=== PATIENT | female | born 1985 | race Caucasian/White ===

== ENCOUNTER → 2020-01-30 16:11 | Outpatient (CLI) | payer OTHER, SELFPAY ==
[2020-01-31 16:36] LABS: Strep Grp B PCR NEG for Grp B Strep
== END ==
PROVIDERS: PCP Specialist; Visit Provider Specialist
DX: Z34.83 Encounter for supervision of other normal pregnancy, third trimester (principal); Z3A.36 36 weeks gestation of pregnancy
CPT/HCPCS: 87653

== ENCOUNTER 2020-01-30 16:52 | Outpatient (CLI) | payer OTHER, SELFPAY ==
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
== END 2020-01-30 17:30 | disposition home or self-care (01) ==
LOC: OB 02-03 11:46
PROVIDERS: PCP Specialist; Referring Provider Specialist; Visit Provider Specialist
DX: O24.410 Gestational diabetes mellitus in pregnancy, diet controlled (principal); Z3A.36 36 weeks gestation of pregnancy
CPT/HCPCS: 59025; 87653; G0378; G0379

== ENCOUNTER 2020-02-04 10:21 | Outpatient (CLI) | payer OTHER, SELFPAY ==
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
== END 2020-02-04 11:24 | disposition home or self-care (01) ==
LOC: LABOR 11:10 → OB 02-05 07:05
PROVIDERS: PCP Specialist; Referring Provider Specialist; Visit Provider Specialist
DX: O24.419 Gestational diabetes mellitus in pregnancy, unspecified control (principal); Z3A.37 37 weeks gestation of pregnancy
CPT/HCPCS: 59025; G0378; G0379

== ENCOUNTER 2020-02-07 14:00 | Outpatient (CLI) | payer OTHER, SELFPAY ==
--- NOTE | 2020-02-07 14:10 | DI.US.S_ITS ---
PROCEDURE: US OB BIOPHYSICAL PROFILE INDICATIONS: GESTATIONAL DIABETES OUTSIDE/PRIOR DATING DATA: Last menstrual period (LMP): Unknown. LMP-based estimated date of delivery (TARIK): Unknown. First dating scan (date and location): 02/04/20 . Estimated date of delivery (TARIK) from first dating scan: 03/03/20 . TECHNIQUE: Real-time scanning was performed of the fetus for biophysical profile, with image documentation. COMPARISON: [facility], US, OB >= 14 WEEKS FETUS, 01/30/2020, 16:32. FINDINGS: General: A single living intrauterine gestation is present. Presentation: Vertex Placenta: Placental position is anterior , without previa Amniotic fluid index: 11.7 cm, normal range is 5-24 cm. heart rate: 145 beats per minute. Maternal cervical canal: Not well seen at late stage of Estimated gestational age from initial scan: 36 weeks 3 days. Biophysical profile: Tone: 2 points. Movement: 2 points. Respiration: 2 points. Largest pocket of fluid: 2 points. IMPRESSION: Normal ultrasound biophysical profile, 01/02 Dictated by: Shin Choudhary M.D. on 02/07/2020 at 14:28 Approved by: Shin Choudhary M.D. on 02/07/2020 at 14:34
== END 2020-02-07 15:30 | disposition home or self-care (01) ==
LOC: LABOR 14:39 → OB 02-09 12:31
PROVIDERS: PCP Specialist; Referring Provider Specialist; Visit Provider Obstetrics & Gynecology
DX: O24.419 Gestational diabetes mellitus in pregnancy, unspecified control (principal); Z3A.37 37 weeks gestation of pregnancy
CPT/HCPCS: 59025; 59050; 76819; G0378; G0379

== ENCOUNTER 2020-02-11 09:47 | Outpatient (CLI) | payer OTHER, SELFPAY ==
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
== END 2020-02-11 10:20 | disposition home or self-care (01) ==
LOC: LABOR 10:33 → OB 02-13 12:41
PROVIDERS: PCP Specialist; Referring Provider Specialist; Visit Provider Specialist
DX: O24.410 Gestational diabetes mellitus in pregnancy, diet controlled (principal); Z3A.38 38 weeks gestation of pregnancy
CPT/HCPCS: 59025; G0378; G0379

== ENCOUNTER → 2020-02-13 09:19 | Outpatient (CLI) | payer OTHER, SELFPAY ==
[2020-02-15 15:37] LABS: COVID19 Sendout Not Detected (Not Detect)
== END ==
PROVIDERS: PCP Specialist; Visit Provider Physician Assistant
DX: Z11.59 Encounter for screening for other viral diseases (principal)
CPT/HCPCS: 87635

== ENCOUNTER 2020-02-15 20:17 | Outpatient (CLI) | payer OTHER, SELFPAY ==
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
== END 2020-02-15 21:30 | disposition home or self-care (01) ==
LOC: OB 02-26 10:49
PROVIDERS: PCP Specialist; Referring Provider Specialist; Visit Provider Specialist
DX: O24.410 Gestational diabetes mellitus in pregnancy, diet controlled (principal); Z3A.39 39 weeks gestation of pregnancy
CPT/HCPCS: G0378; G0379

== ENCOUNTER 2020-02-16 03:11 | Inpatient (IN) | payer OTHER, SELFPAY ==
[2020-02-16] MEDS: miSOPROStoL 100 MCG TABLET 50 MCG PO (05:25)
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
[2020-02-16 11:14] VITALS: BP 127/85
[2020-02-16 11:37] LABS: Add Manual Diff / Slide Review NO; Basophils Absolute Auto 100 /uL (0-100); Basophils Percent Auto 0.8 % (0-2); Eosinophils Absolute Auto 300 /uL (0-450); Eosinophils Percent Auto 2.4 % (2-4); Hematocrit 43.7 % (36-46); Hemoglobin 14.6 g/dL (12.0-16.0); Lymphocytes Absolute Auto 2300 /uL (1100-4500); Lymphocytes Percent Auto 20.2 % (25-40); Mean Corpuscular HGB Conc 33.4 % (30-36); Mean Corpuscular Hemoglobin 31.2 PG (26-34); Mean Corpuscular Volume 93.4 fL (80-100); Monocytes Absolute Auto 600 /uL (0-900); Monocytes Percent Auto 5.4 % (3-14); Neutrophils Absolute Auto 8000 /uL (1500-7000); Neutrophils Percent Auto 71.2 % (50-75); Platelet Count 241 X10^3/uL (150-400); Red Blood Cell Count 4.67 X10^6/uL (4.0-5.2); Red Cell Distribution Width 13.3 % (11.6-14.8); White Blood Cell Count 11.2 X10^3/uL (4.5-11.0)
[2020-02-16] MEDS: OXYTOCIN PREMIX 30 UNIT/500 ML PLAST..BAG IV (12:35)
[2020-02-16] MEDS: LACTATED RINGERS 1,000 ML 100 ML IV (12:39)
--- NOTE | 2020-02-17 | PATH_ITS ---
[facility] Accession Number: [id number] . 01 Material submitted: . placenta - PLACENTA . 01 Clinical history: . EVALUATION OF LABOR . 02 Diagnosis: Placenta, Delivery: Placenta parenchyma: Weight: 530 grams. Cotyledons demonstrate diffuse disruption at gross examination, suggestive of possible incomplete placenta. Variable chorionic villous maturation, slightly less mature than for a full-term gestation. Moderate inter- and intravillous fibrin and calcification is present. Possible mild, patchy villitis . Umbilical cord: Eccentrically inserted. 45 cm in length. Three vessels present. No funisitis identified. . Membranes: Insertion indeterminate at gross examination due to disruption. No chorioamnionitis identified. Meconium staining present. V 02/20/2020 1125 Local . 02 Electronically signed: . Zeynep Hamilton MD, Pathologist NPI- [id number] . 01 Gross description: . Received in formalin, labeled placenta, and consists of a 530-gram placenta with attached membranes and umbilical cord. The anglin-white umbilical cord inserts eccentrically, measures 45 cm in length by 1.2 cm in diameter, and displays three vessels on cut surface. The anglin-pink to purple translucent membranes are diffusely disrupted. The surface is maldonado-purple to anglin-pink with focal areas of fibrin deposition. The cotyledons are diffusely disrupted and sectioning reveals red-brown, focally calcified cut surfaces. Hadoop Architect sections are submitted. . A1: end of umbilical cord and surface. A2: mid-section of umbilical cord and membrane roll. A3-A4: full-thickness sections of placenta. (EA:[id number]) /MRV 02/19/2020 1518 Local . 02 Pathologist provided ICD-10: O43.90 . 02 CPT . 861405 Performed at: 01 [facility] [address] [place] [address], [place], [place] [id number] MD Cordell Bentley MD Phone: [phone] Performed at: 02 [facility] [address] [address] [place], [place] [id number] MD Alejandra Chandler MD Phone: [phone]
--- NOTE | 2020-02-17 02:55 | PM.PREOP ---
Pre-operative Note COVID-19 COVID-19 status: Negative Result date/Date tested (Pos, Neg/Pending): 02/13/20 Interval Note History & Physical reviewed/Exam performed by Physician: Yes Changes to H&P: Yes H&P completed within 30 days and has changed as indicated here:: Retained placenta
--- NOTE | 2020-02-17 02:59 | PM.OBPRVD ---
Events: Gestational Diabetes and Labor Induction Labor & Delivery Delivery date: 02/17/20 Cervical ripening method: per misoprostal protocol Induction method: per pitocin protocol Delivery monitor: external FHT and external uterine Route of delivery: L&D Laceration Description: Perineal - 1st Degree Delivery repair: chromic (3 0) Estimated blood loss (mL): 200 Anesthesia type: Epidural Narrative: Patient arrived on Labor and delivery for induction for gestational diabetes and grade 3 placenta since 36 weeks. She received 1 dose of Cytotec. She was then started on Pitocin. She received an epidural catheter for pain control. heart tones category 1 to category 2 throughout labor. Patient delivered spontaneously, over an intact perineum. The viable female infant was placed on maternal abdomen. After the cord stopped pulsating the cord was clamped, cut, and cord bloods obtained. The placenta did not deliver spontaneously. There was a first-degree perineal tear that was repaired with 3 0 chromic suture. Patient will be taken to the OR for manual removal of placenta and curettage. Baby 1: Infant gender: Female Presentation: vertex position: Right Occiput Anterior Placenta delivery description: Uterine Exploration and Curettage cord vessel description: 3 Vessels score (1 min): 8 score (5 min): 9 Plan for aftercare: Patient to the OR for retained placenta. Routine care.
[2020-02-17] MEDS: CEFAZOLIN 2 GM/100 ML FROZ.PIGGY IV ×3 (03:32→20:59)
--- NOTE | 2020-02-17 03:57 | SUR.OPER ---
Lithotomy on padded OR bed, head on pillow, arms secured on padded arm boards at <90 degrees abduction. Legs secured in padded yellow fins stirrups.
[2020-02-17 04:20] VITALS: BP 107/83; PULSE 114; RESP 17; TEMP 36.9; O2SAT 100
[2020-02-17 04:25] VITALS: BP 121/79; PULSE 109; RESP 10; TEMP 37.3; O2SAT 100
[2020-02-17 04:29] VITALS: BP 115/86; PULSE 96; RESP 11; TEMP 37.3; O2SAT 100
[2020-02-17 04:31] VITALS: BP 119/88; PULSE 94; RESP 12; TEMP 37.2; O2SAT 100
[2020-02-17] MEDS: LACTATED RINGERS 1,000 ML 100 ML IV (04:47)
--- NOTE | 2020-02-17 04:48 | PM.OP.1 ---
Operative Date/Time/Diagnoses Date of procedure: 02/17/20 Time of procedure: 04:48 Pre-op diagnosis: Retained placenta Post-op diagnosis: same Procedure & Clinicians Procedure: Uterine curettage Same procedure as scheduled: Yes Indications: Retained placenta Surgeon: Yuki Gaffney Click Yes if Unassisted: Yes Anesthesia Type: Epidural Operative Notes Findings: Significantly adherent placenta Closure Type: not applicable Specimen(s): other (Retained placenta tissue) Estimated Blood Loss (mL): 400 Blood products transfused: none Procedure in detail: Patient was brought to the operating room where she underwent bolus of her epidural for pain control. She was placed in low yellow fin stirrups and prepped and draped in the usual sterile fashion. Bladder was drained with an in-and out catheter. 2 g of Ancef were in prior to beginning the case. Warming was with blankets. Pulsatile stockings were in place and functional. A check system was reviewed with staff in the room prior to beginning the case. The placenta was manually removed. A ring forcep was placed on the anterior and posterior lip of the cervix. The large uterine curette was placed into the uterus and the entire uterine lining was curetted with removal of a large amount of retained tissue. The patient received Pitocin and Methergine after the procedure to decrease bleeding. The prior repaired first-degree vaginal tear was repaired again with 3 0 chromic suture. The patient went to recovery room in stable condition. Counts of instruments and sponges were correct. Complications: none Post-operative Condition: stable Disposition: other ( center) Plan for aftercare: Monitor for bleeding otherwise routine care
[2020-02-17] MEDS: KETOROLAC 30 MG/ML VIAL IV ×3 (05:05→18:09)
[2020-02-17 08:01] LABS: Rubella Antibody IgG 61.8 IU/mL (>15)
[2020-02-17] MEDS: FERROUS GLUCONATE 324 MG TABLET PO (09:10)
[2020-02-17] MEDS: DOCUSATE 100 MG CAPSULE PO ×2 (09:10→20:59)
[2020-02-17] MEDS: PRENATAL VIT,CALC/IRON/FOLIC 1 TABLET 1 TAB PO (09:10)
[2020-02-17 16:00] VITALS: BP 111/72; PULSE 89; RESP 16; TEMP 36.7
[2020-02-17] MEDS: IRON SUCROSE 100 MG in SODIUM CHLORIDE 0.9% 100 ML 420 ML IV (17:38)
[2020-02-18] MEDS: KETOROLAC 30 MG/ML VIAL IV (00:56)
[2020-02-18] MEDS: LANOLIN OINT 7 GM 1 APPLIC TOP (01:05)
[2020-02-18 06:56] LABS: Add Manual Diff / Slide Review NO; Basophils Absolute Auto 0 /uL (0-100); Basophils Percent Auto 0.2 % (0-2); Eosinophils Absolute Auto 300 /uL (0-450); Eosinophils Percent Auto 2.1 % (2-4); Lymphocytes Absolute Auto 2100 /uL (1100-4500); Lymphocytes Percent Auto 14.3 % (25-40); Mean Corpuscular HGB Conc 34.1 % (30-36); Mean Corpuscular Hemoglobin 31.5 PG (26-34); Mean Corpuscular Volume 92.4 fL (80-100); Monocytes Absolute Auto 800 /uL (0-900); Monocytes Percent Auto 5.1 % (3-14); Neutrophils Absolute Auto 11600 /uL (1500-7000); Neutrophils Percent Auto 78.3 % (50-75); Platelet Count 168 X10^3/uL (150-400); Red Blood Cell Count 2.27 X10^6/uL (4.0-5.2); Red Cell Distribution Width 13.5 % (11.6-14.8); White Blood Cell Count 14.9 X10^3/uL (4.5-11.0)
[2020-02-18 07:05] LABS: Hemoglobin 7.2 g/dL (12.0-16.0)
--- NOTE | 2020-02-18 07:50 | PM.OBDS.1 ---
Discharge Providers Provider Date of admission: 02/16/20 03:11 Discharge Date: 02/18/20 Primary care physician: Yuki Gaffney MD Consults: 02/16/20 11:17 Consult to Anesthesiology Urgent Comment: Consulting Provider: Anesthesiologist Reason for consultation: Epidural Has provider been notified: No 02/18/20 04:45 Consult to Social Science Research Assistant Routine Comment: Discharge provider: Yuki Gaffney MD Summary Hospital Course Date Patient Seen: 02/18/20 Time Patient Seen: 07:51 Procedures: Prostin, Pitocin induction, epidural catheter, spontaneous vaginal delivery, manual removal with curettage of uterus for retained placenta, IV iron therapy Hospital Course: Patient was admitted for induction. She had a normal labor and delivery. She had a retained placenta that required manual removal with uterine curettage. Patient did well . She is anemic and received IV iron. She is breast-feeding without difficulty. She is urinating and ambulating well. She is passing gas. Peripartum Data Infant Delivery Method: Natural Vaginal Laceration Description: Perineal - 1st Degree Procedures: Prostin and Pitocin induction, epidural catheter, spontaneous vaginal delivery, repair of first-degree perineal tear, manual removal of placenta with uterine curettage, IV iron for anemia. complications: retained placenta [place] 1: Gender: Female Disposition of : home Discharge Diagnosis (1) Vaginal delivery: Status: Acute (2) Retained placenta: Status: Acute (3) Diet controlled gestational diabetes mellitus: Status: Acute (4) Acute blood loss anemia: Status: Acute Status at Discharge Cognitive/behavioral status at discharge: oriented Functional status at discharge: independent ambulation Overall status at discharge: patient is progressing back to baseline Time Spent with Patient Time attestation: Total time spent providing and/or coordinating discharge services: Time spent: Less than 30 minutes Objective Labs Result Diagrams: 02/18/20 06:40 Labs: Laboratory Results - last 24 hr 02/17/20 02/18/20 06:40 06:40 WBC 14.9 H RBC 2.27 L Hgb 7.2 L Hct 21.0 L MCV 92.4 MCH 31.5 MCHC 34.1 RDW 13.5 Plt Count 168 Neut % (Auto) 78.3 H Lymph % (Auto) 14.3 L [place] % (Auto) 5.1 Eos % (Auto) 2.1 Baso % (Auto) 0.2 Neut # (Auto) 41442 H Lymph # (Auto) 2100 [place] # (Auto) 800 Eos # (Auto) 300 Baso # (Auto) 0 Rubella Antibody 61.8 Exam Vital Signs (past 8 hours): Blood pressure 108/68, pulse of 90, temperature 97.6? Oxygen Delivery Method Room Air Oxygen Flow Rate 0 Narrative Exam Narrative: Abdomen is soft, nontender. Uterus is firm, at U with mild tenderness. Mild lochia. Repair is intact. Extremities without edema and nontender. Patient's blood type is O positive, she is rubella immune, she received the Tdap in the 3rd trimester. 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 softener Discharge orders & Medications Prescriptions: New ibuprofen 600 mg Tablet 600 mg PO Q6HR PRN (Reason: Pain, Mild (1-3)) Qty: 20 RF: 0 Continued Super Twin EPA-DHA 1,250 mg capsule 1,250 mg PO DAILY RF: 0 prenat.vits,anjali,hhk-dbie-okldd Tablet 1 tab PO DAILY RF: 0 cholecalciferol (vitamin D3) 6,000 PO RF: 0 ADVANCED Calcium 1 tab PO DAILY RF: 0 Follow up/Referrals: Yuki Gaffney MD [Primary Care Provider] - 2 Weeks (post with US to confirm no retained placenta) Diet/Activity/Treatments Diet: Regular Activity: Nothing in vagina for 6 weeks Skin/Wound/Dressing Care Report to your healthcare provider any signs of infection, such as:: chills, fever and increased pain Discharge Data Primary Care Provider: Yuki Gaffney Attending Provider: Yuki Gaffney Admit Date/Time: 02/16/20 03:11
[2020-02-18] MEDS: DOCUSATE 100 MG CAPSULE PO (08:08)
[2020-02-18] MEDS: IBUPROFEN 600 MG TABLET PO (08:08)
[2020-02-18] MEDS: FERROUS GLUCONATE 324 MG TABLET PO (08:08)
== END 2020-02-18 11:37 | disposition home or self-care (01) | DRG 806 ==
PROVIDERS: Admitting Provider Specialist; PCP Specialist; Referring Provider Specialist; Visit Provider Specialist
PROC: 10E0XZZ Delivery of Products of Conception, External Approach (ICD-10-PCS; CPT 58120; principal; 2020-02-17 03:30)
DX: O24.410 Gestational diabetes mellitus in pregnancy, diet controlled (principal); D62 Acute posthemorrhagic anemia; Z37.0 Single live birth; O24.420 Gestational diabetes mellitus in childbirth, diet controlled; Z3A.39 39 weeks gestation of pregnancy; O43.90 Unspecified placental disorder, unspecified trimester; O70.0 First degree perineal laceration during delivery; O73.0 Retained placenta without hemorrhage
CPT/HCPCS: 01967; 36415; 59050; 59160; 59200; 59410; 85025; 86762; 86850; 86900; 86901; G0378; G0379; J0690; J1756; J1885; J2405; J2590

== ENCOUNTER → 2020-04-16 08:00 | Outpatient (CLI) | payer OTHER, SELFPAY ==
[2020-04-16 09:54] LABS: Glucose Fasting 86 mg/dL (70-100)
[2020-04-16 10:53] LABS: Glucose Tol Interpretation INTERPRETATION
[2020-04-16 11:05] LABS: Glucose 1 Hour 127 mg/dL (70-170)
[2020-04-16 11:59] LABS: Glucose 2 Hour 84 mg/dL (70-140)
== END ==
PROVIDERS: PCP Registered Nurse Diabetes Educator; Referring Provider Specialist; Visit Provider Specialist
DX: O24.410 Gestational diabetes mellitus in pregnancy, diet controlled (principal)
CPT/HCPCS: 36415; 82951; 82952

== ENCOUNTER 2020-12-17 08:15 | Outpatient (RCR) | payer OTHER, SELFPAY ==
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
--- NOTE | 2020-05-03 14:59 | PT.OTN ---
Current Diagnoses Stiffness of unspecified hip, not elsewhere classified (05/03/20) Muscle weakness (generalized) (05/03/20) Stress incontinence (female) (male) (05/03/20) Abnormal posture (05/03/20) Unspecified urinary incontinence (05/03/20) Physical Therapy Treatment Note PT-OP-A Visit Information Start: 04/09/20 17:59 Freq: Status: Active Protocol: Document 05/03/20 13:41 LRN (Rec: 05/03/20 14:58 LRN [id number]) Out-Patient Physical Therapy Visit Information Visit Information Visit Type Treatment Note Visit Note Post s/p 10 wks, 6 days . Visit Start Time 12:41 Visit Stop Time 14:29 Total Visit Minutes 48 Visit Number 2 Evaluation Information Evaluation Date 04/12/20 Precautions Precautions IUD in place. Post : s/p 7 wks, 6 days ( on 02/17/20). Manual extraction of placenta with no incisions. PT-OP-B Current Condition Start: 04/09/20 17:59 Freq: Status: Active Protocol: Document 04/12/20 12:23 LRN (Rec: 04/12/20 13:49 LRN [id number]) Current Condition History of Current Condition Onset Date 02/17/20 Current Complaints Significant urinary leakage History of Current Condition 8 weeks ago, vaginal with minor superficial tear. Manual extraction of placenta, no incisions. Feels she is having way more leaking than common. Not much leakage in AM. As day progresses she states the urinary leakage gets worse and by afternoon, pads are full after 1-2 hrs wear. She reports no feeling of a sensation to urinate and has no feeling of falling out . Activities like walking going up/down stairs increases her leakage significantly. Night time she wakes to feed baby and urinate although she doesn't have the urge to urinate. She uses an online exercise program developed by a PT (Expecting and Impowered program) 3x/week to build cardio post . Consciously she uses the bathroom every 1-2 hrs. Pt is also concerned of her Diastasis Rectus and preports she can fit 2 fingers (depth of fingers, not width) between her rectus muscles. Prior Treatments and Tests None. Symptoms of urgency before . During only incontinent with sneezing. Pt reports having an IUD placed recently. Future Testing and Treatments Planned None Treatment Goals Patient/Caregiver Goals Pt goal with therapy is to regain PF strength to eliminate leakage. Prior Functional Status Baseline Function- ADL's Independent Baseline Function- Mobility Independent Baseline Function- Other Urgency leakage, running to bathroom. Current Functional Impairments (Reported) Functional Limitations- ADL's Leakage with with sneezing, coughing, laughing, stairs up/ down, walking carrying baby, leaking prior to going to bathroom. Functional Limitations- Mobility/Gait Urinary leakage with gait. Functional Limitations- Work/School Worked in [employer] , currently unemployed but hopes to return to the workforce. Functional Limitations- Recreation/ Exercises 3-4x/week, Hobbies resistance type exercises with hand weights, Kegels daily, walking 2-3x/week for 30 minutes on own or with front holding baby carrier. Personal Factors Other Personal Factors That May Effect Pt spouse is , Therapy/Recovery sometimes travels. PT-OP-C Subjective Start: 04/09/20 17:59 Freq: Status: Active Protocol: Document 05/03/20 13:41 LRN (Rec: 05/03/20 14:58 LRN [id number]) OP-PT Subjective Patient Comments Patient Comments Did do bladder diary on phone. States noticed urinary leakage occurred more as the day progressed and that she had a loss of urge towards the end of day. Did stretch to PF and noticed increased incontinence. Doing Kegels 4- 5 days/week. PT-OP-I Pelvic Floor Start: 04/09/20 17:59 Freq: Status: Active Protocol: Document 04/12/20 12:23 LRN (Rec: 04/12/20 13:49 LRN [id number]) Pelvic Floor Assessment Urine Other Urinary Symptoms Tender external R Labia majora . Leakage Size Medium Leakage Cause Cough,Exercise,Lifting,Sneeze Leaks Per Day Constant Voiding Frequency 8 Nocturia 2 Pads Used In 24 Hours 6 Urine Pad Type Depends Bowel Bowel Symptoms Uncontrolled Flatulence Other Bowel Symptoms Denies constipation. Bowel Movement Frequency 1-2 Hudson Stool Chart Type 1-7 3 Hudson Stool Chart Comments Occasionally type 4 Prolapse Cystocele Grade 2 Rectocele Grade 1 Perineal Descent Resting Present Bearing Present Contraction Ability Manual Muscle Testing Left 1 Manual Muscle Testing Right 1 Manual Muscle Testing Anterior 0 Manual Muscle Testing Posterior 3 Muscle Endurance (Seconds) 10 Number of Quick Contractions In 10 0 Seconds Comments Pelvic Floor Comments Visual inspection: -Can see a anal wink & mildly clitoral nod. -Vaginal gapping. -Red Perineum PALPATION: LONG HOLD:1 finger palpation internally can only feel contraction of posterior floor . QUICK FLICS: Lift only felt on L lateral wall. PT-OP-J Posture/Palpation/Skin Start: 04/09/20 17:59 Freq: Status: Active Protocol: Document 04/12/20 12:23 LRN (Rec: 04/12/20 13:49 LRN [id number]) Posture Evaluation Position Standing Evaluation View Posterior & lateral Head/C-Spine Posture Forward Head L-Spine Posture Increased Lordosis Shoulder Posture (L) Elevated Pelvis Posture Anteriorly Tilted,(L) PSIS Posterior Weight Distribution Balanced Comments Posture Comments Sway back PT-OP-K Range of Motion Start: 04/09/20 17:59 Freq: Status: Active Protocol: Document 04/12/20 12:23 LRN (Rec: 04/12/20 13:49 LRN [id number]) Lumbar Spine Range of Motion Lumbar Spine Active Degrees Testing Position Standing Flexion 45 Extension 15 Rotation Left 45 Rotation Right 45 Lateral Flexion Left 34 Lateral Flexion Right 37 Hip Goniometric Range of Motion Hip Right Passive Testing Position Supine Straight Leg Raise 80 Internal Rotation 38 External Rotation 65 Left Passive Testing Position Supine Straight Leg Raise 90 Internal Rotation 40 External Rotation 65 PT-OP-M Strength Start: 04/09/20 17:59 Freq: Status: Active Protocol: Document 04/12/20 12:23 LRN (Rec: 04/12/20 13:49 LRN [id number]) Trunk Strength Trunk Manual Muscle Testing Testing Position Supine Rotation Left 4 Good Rotation Right 4 Good Core Stabilization Loss of stabilization with MMT of LE's. Hip Strength Hip Manual Muscle Testing Right Comments Generally 5/5. Left Comments Generally 5/5. PT-OP-Q Treatments Start: 04/09/20 17:59 Freq: Status: Active Protocol: Document 05/03/20 13:41 LRN (Rec: 05/03/20 14:58 LRN [id number]) Therapeutic Exercises Supine Exercises LE Roll in/out w/PF/Deep Breathing Supine Exercise Name ON WEDGE, LE Roll in/out w/PF/ Deep Breathing Reps/Minutes 10' Comments Initial training Deep Breathing Supine Exercise Name Deep Breathing Reps/Minutes 2' Therapeutic Activity Therapeutic Activity Sit<>Supine w/DR protection Name Transfer training w/use of sheet to protect DR. Reps/Minutes 3' Comments Pt shows good understanding of proper transfer technique with sheet. Manual Therapy Treatment Soft Tissue Mobilization PF Body Location PF Mobilization Type Myofascial Release Intensity/Depth Superficial Body Position Supine Comments Medial of L lateral wall, and superior movement of PF more restricted. Self-Care/Home Management Treatment Education Other Education Discussed Kegels during the day with recommendations of daily activities rather than not at all. Reviewed pt's cell phone bladder diary with extra time taken due to the diary being on her phone. Discussed, with recommendations to figuring out pt's fluid intake/output ( use of various bladder diaries with varying locations of diary) and if/when leaking ( use of underwear vs pad against skin). Educated pt in self PF stretch in varying hand positions. Educated pt in Piston effect with breathing with use of PF model. Discussed return to exercise and precautions with recommendations of walking vs running and discussed seating for use of bicycle. Activities Self-Care/Home Management Activities Issued & reviewed HEP: LE ROll in/outs with Lev 2 T-Band issued. PT-OP-T Assessment and Plan Start: 04/09/20 17:59 Freq: Status: Active Protocol: Document 05/03/20 13:41 LRN (Rec: 05/03/20 14:58 LRN [id number]) Physical Therapy Assessment Goals Four Impairment Increased frequency of voiding (day 8x or every 1-2hrs, nighttime 2x). Short Term Goal (STG) Decrease daytime voiding to 5- 7 times. STG Duration 05/14/20 Server Systems Administrator Goal (LTG) Decrease nighttime voiding to 1x/night. LTG Duration 06/14/19 Three Impairment Trunk strength Short Term Goal (STG) Pt will be educated in proper trunk care (TA/protecting DR), TA strengthening, and pt will be able to lift her legs against gravity with good trunk stability. STG Duration 05/14/20 (05/03/20: Progressing, taught TA/ protecting DR) Fpc Goal (LTG) Pt will be able to perform resisted hip flex, ext, AB with good trunk stability. LTG Duration 07/11/20 Two Impairment PF Strength Short Term Goal (STG) Improve PF strength to 2/5 around the PF clock, with improved level of continence with walking and stair ambulation (Initial: Long Hold 10 secs, Quick Flicks 0 reps - lacks superficial PF ms contraction; PF strength is 1/5 left & right lateral beltran; 0/5 anterior, 3/5 posterior). STG Duration 06/14/19 Server Systems Administrator Goal (LTG) Improve PF strength to 3/5 with decreased complaints of urinary stress incontinent symptoms and pt will become aware of need to urinate and to remain continent with stair ambulation and in the presence of a strong cough, sneeze, laughing. LTG Duration 07/11/20 One Impairment Lacks appropriate self care HEP Short Term Goal (STG) Educate pt in appropriate self care exercise using an online exercise program developed by a PT (Shawning [employer] program), 3x/week to build cardio post . STG Duration 04/26/20 Server Systems Administrator Goal (LTG) Pt will be independent in a self care HEP for PF/core strengthening. LTG Duration 07/11/20 (05/03/20: Progressing) Assessment Summary Assessment It was very difficult assessing pt's bladder azra recordings being on her cell phone. Not able to determine urinary leakage from fluid intake or activity or urge based on diary. Pt will need to try again to record. Pt is able to coordinate her breathing and PF contractions very easily. She learns quickly with DR carranza and is anxious to begin an exercise program (running, cycling). Physical Therapy Plan Frequency and Duration Frequency of Treatment 1x/Week Plan of Care Start Date 04/12/20 Plan of Care End Date 07/11/20 Next Visit Focus/Plan Next Note Type Treatment Note Next Visit Plan Review Bladder Diary and discuss as appropriate ( bladder irritants, avg fluid hydration level, hormones, using model discuss bowels/ bladder), discuss proper perineum care. Review her online cardiac program. Teach Delay Technique. Progress LE roll in/out program. STM for stretch to lateral beltran of PF and perineum. Hip stretches (ER>IR, PSLR on right). Sacral Mobilization to correct tilt. Post- pelvic/core stabilization.
--- NOTE | 2020-05-10 16:02 | PT.OTN ---
Current Diagnoses Stiffness of unspecified hip, not elsewhere classified (05/10/20) Muscle weakness (generalized) (05/10/20) Stress incontinence (female) (male) (05/10/20) Abnormal posture (05/10/20) Unspecified urinary incontinence (05/10/20) Physical Therapy Treatment Note PT-OP-A Visit Information Start: 04/09/20 17:59 Freq: Status: Active Protocol: Document 05/10/20 13:38 LRN (Rec: 05/10/20 14:26 LRN [id number]) Out-Patient Physical Therapy Visit Information Visit Information Visit Type Treatment Note Visit Start Time 13:38 Visit Stop Time 14:23 Total Visit Minutes 45 Visit Number 3 Evaluation Information Evaluation Date 04/12/20 Precautions Precautions IUD in place. Post : s/p 7 wks, 6 days ( on 02/17/20). Manual extraction of placenta with no incisions. PT-OP-B Current Condition Start: 04/09/20 17:59 Freq: Status: Active Protocol: Document 04/12/20 12:23 LRN (Rec: 04/12/20 13:49 LRN [id number]) Current Condition History of Current Condition Onset Date 02/17/20 Current Complaints Significant urinary leakage History of Current Condition 8 weeks ago, vaginal with minor superficial tear. Manual extraction of placenta, no incisions. Feels she is having way more leaking than common. Not much leakage in AM. As day progresses she states the urinary leakage gets worse and by afternoon, pads are full after 1-2 hrs wear. She reports no feeling of a sensation to urinate and has no feeling of falling out . Activities like walking going up/down stairs increases her leakage significantly. Night time she wakes to feed baby and urinate although she doesn't have the urge to urinate. She uses an online exercise program developed by a PT (Expecting and Impowered program) 3x/week to build cardio post . Consciously she uses the bathroom every 1-2 hrs. Pt is also concerned of her Diastasis Rectus and preports she can fit 2 fingers (depth of fingers, not width) between her rectus muscles. Prior Treatments and Tests None. Symptoms of urgency before . During only incontinent with sneezing. Pt reports having an IUD placed recently. Future Testing and Treatments Planned None Treatment Goals Patient/Caregiver Goals Pt goal with therapy is to regain PF strength to eliminate leakage. Prior Functional Status Baseline Function- ADL's Independent Baseline Function- Mobility Independent Baseline Function- Other Urgency leakage, running to bathroom. Current Functional Impairments (Reported) Functional Limitations- ADL's Leakage with with sneezing, coughing, laughing, stairs up/ down, walking carrying baby, leaking prior to going to bathroom. Functional Limitations- Mobility/Gait Urinary leakage with gait. Functional Limitations- Work/School Worked in [employer] , currently unemployed but hopes to return to the workforce. Functional Limitations- Recreation/ Exercises 3-4x/week, Hobbies resistance type exercises with hand weights, Kegels daily, walking 2-3x/week for 30 minutes on own or with front holding baby carrier. Personal Factors Other Personal Factors That May Effect Pt spouse is , Therapy/Recovery sometimes travels. PT-OP-C Subjective Start: 04/09/20 17:59 Freq: Status: Active Protocol: Document 05/10/20 13:38 LRN (Rec: 05/10/20 14:26 LRN [id number]) OP-PT Subjective Patient Comments Patient Comments Without pad on, has found there are periods where she is not leaking. States she is cognizant when she leaks in the shower and sometimes notices she has leaked without feeling it leaking. When leaked it was willam size 3x in 4 hours and with quick walk , standing rocking baby.... almost always staning. 5 of 7 days had a sizable leakage. States she doesn't think she is leaking as large as amoiunts as she thought. PT-OP-I Pelvic Floor Start: 04/09/20 17:59 Freq: Status: Active Protocol: Document 04/12/20 12:23 LRN (Rec: 04/12/20 13:49 LRN [id number]) Pelvic Floor Assessment Urine Other Urinary Symptoms Tender external R Labia majora . Leakage Size Medium Leakage Cause Cough,Exercise,Lifting,Sneeze Leaks Per Day Constant Voiding Frequency 8 Nocturia 2 Pads Used In 24 Hours 6 Urine Pad Type Depends Bowel Bowel Symptoms Uncontrolled Flatulence Other Bowel Symptoms Denies constipation. Bowel Movement Frequency 1-2 Boyle Stool Chart Type 1-7 3 Boyle Stool Chart Comments Occasionally type 4 Prolapse Cystocele Grade 2 Rectocele Grade 1 Perineal Descent Resting Present Bearing Present Contraction Ability Manual Muscle Testing Left 1 Manual Muscle Testing Right 1 Manual Muscle Testing Anterior 0 Manual Muscle Testing Posterior 3 Muscle Endurance (Seconds) 10 Number of Quick Contractions In 10 0 Seconds Comments Pelvic Floor Comments Visual inspection: -Can see a anal wink & mildly clitoral nod. -Vaginal gapping. -Red Perineum PALPATION: LONG HOLD:1 finger palpation internally can only feel contraction of posterior floor . QUICK FLICS: Lift only felt on L lateral wall. PT-OP-J Posture/Palpation/Skin Start: 04/09/20 17:59 Freq: Status: Active Protocol: Document 05/10/20 13:38 LRN (Rec: 05/10/20 16:00 LRN [id number]) Palpation Assessment Location Diastasis Rectus Palpation Location DR Palpation Details 3 above umbilicus: Shallow Closure 2 above umbilicus: 1.5 finger widths, shallow 1 above umbilicus: 1.5 finger widths, shallow Umbilicus 1 below umbilicus: 1.5 finger widths, shallow 2 below umbilicus: 1.5 finger widths, shallow 3 above umbilicus: 2.0 finger widths, shallow PT-OP-K Range of Motion Start: 04/09/20 17:59 Freq: Status: Active Protocol: Document 04/12/20 12:23 LRN (Rec: 04/12/20 13:49 LRN [id number]) Lumbar Spine Range of Motion Lumbar Spine Active Degrees Testing Position Standing Flexion 45 Extension 15 Rotation Left 45 Rotation Right 45 Lateral Flexion Left 34 Lateral Flexion Right 37 Hip Goniometric Range of Motion Hip Right Passive Testing Position Supine Straight Leg Raise 80 Internal Rotation 38 External Rotation 65 Left Passive Testing Position Supine Straight Leg Raise 90 Internal Rotation 40 External Rotation 65 PT-OP-M Strength Start: 04/09/20 17:59 Freq: Status: Active Protocol: Document 04/12/20 12:23 LRN (Rec: 04/12/20 13:49 LRN [id number]) Trunk Strength Trunk Manual Muscle Testing Testing Position Supine Rotation Left 4 Good Rotation Right 4 Good Core Stabilization Loss of stabilization with MMT of LE's. Hip Strength Hip Manual Muscle Testing Right Comments Generally 5/5. Left Comments Generally 5/5. PT-OP-Q Treatments Start: 04/09/20 17:59 Freq: Status: Active Protocol: Document 05/10/20 13:38 LRN (Rec: 05/10/20 14:26 LRN [id number]) Therapeutic Exercises Supine Exercises LE Roll in/out w/PF/Deep Breathing Supine Exercise Name ON WEDGE, LE Roll in/out w/PF/ Deep Breathing Comments Extra time for Initial training Deep Breathing Supine Exercise Name Deep Breathing Reps/Minutes 1' Comments Pt able to perform with low abdominal excursion Manual Therapy Treatment Soft Tissue Mobilization PF Body Location PF Mobilization Type Myofascial Release Intensity/Depth Superficial Body Position Supine Comments Medial of L lateral wall, and superior movement of PF more restricted. Taping K-tape Body Location Abdomen Treatment Focus DR closure Type of Tape Kinesio Tape Skin Inspection Good Comments Pt had good myofascial response K-tape. Self-Care/Home Management Treatment Education Patient Education Body Mechanics Other Education Educated pt in wearing of K- tape with I/S of safe and proper removal of tape. Educated pt in signs of allergic reactions w/ instructions to remove. Discussed bladder diary of informatio of fluid intake and output (leakage and when with what standing activity is unknown. Educated pt iin avg hydration levels and decreasing nighttime drinking if leaking in morning. Activities Self-Care/Home Management Activities I/S: Transfer training sit to stand, stand to sit. Pt to continue TA & Kegel exercises. PT-OP-T Assessment and Plan Start: 04/09/20 17:59 Freq: Status: Active Protocol: Document 05/10/20 13:38 LRN (Rec: 05/10/20 14:26 LRN [id number]) Physical Therapy Assessment Goals Four Impairment Increased frequency of voiding (day 8x or every 1-2hrs, nighttime 2x). Short Term Goal (STG) Decrease daytime voiding to 5- 7 times. STG Duration 05/14/20 Composite Assembler Goal (LTG) Decrease nighttime voiding to 1x/night. LTG Duration 06/14/19 Three Impairment Trunk strength Short Term Goal (STG) Pt will be educated in proper trunk care (TA/protecting DR), TA strengthening, and pt will be able to lift her legs against gravity with good trunk stability. STG Duration 05/14/20 (05/03/20: Progressing, taught TA/ protecting DR) Prison Goal (LTG) Pt will be able to perform resisted hip flex, ext, AB with good trunk stability. LTG Duration 07/11/20 Two Impairment PF Strength Short Term Goal (STG) Improve PF strength to 2/5 around the PF clock, with improved level of continence with walking and stair ambulation (Initial: Long Hold 10 secs, Quick Flicks 0 reps - lacks superficial PF ms contraction; PF strength is 1/5 left & right lateral beltran; 0/5 anterior, 3/5 posterior). STG Duration 06/14/19 Prison Goal (LTG) Improve PF strength to 3/5 with decreased complaints of urinary stress incontinent symptoms and pt will become aware of need to urinate and to remain continent with stair ambulation and in the presence of a strong cough, sneeze, laughing. LTG Duration 07/11/20 One Impairment Lacks appropriate self care HEP Short Term Goal (STG) Educate pt in appropriate self care exercise using an online exercise program developed by a PT (Expecting and Impowered program), 3x/week to build cardio post . STG Duration 04/26/20 Composite Assembler Goal (LTG) Pt will be independent in a self care HEP for PF/core strengthening. LTG Duration 07/11/20 (05/03/20: Progressing) Assessment Summary Assessment Pt appears to be voiding quite frequently for short urination times and is fair in her hydration level She does not appear to have a constipation problem; therefore leakage is probably due to weakness and hormonal changes associated to . Pt appears to have a + response to K-tape. Her DR appears to be shallow with improvement at proximal and distal ends. Physical Therapy Plan Frequency and Duration Frequency of Treatment 1x/Week Plan of Care Start Date 04/12/20 Plan of Care End Date 07/11/20 Next Visit Focus/Plan Next Note Type Treatment Note Next Visit Plan Discuss proper perineum care. Review her online cardiac program. Teach Delay Technique. Progress LE roll in/out program. STM for stretch to lateral beltran of PF and perineum. Hip stretches (ER>IR, PSLR on right). Sacral Mobilization to correct tilt. Post- pelvic/core stabilization.
--- NOTE | 2020-06-10 12:31 | PT.OTN ---
Current Diagnoses Stiffness of unspecified hip, not elsewhere classified (06/10/20) Muscle weakness (generalized) (06/10/20) Stress incontinence (female) (male) (06/10/20) Abnormal posture (06/10/20) Unspecified urinary incontinence (06/10/20) Physical Therapy Treatment Note PT-OP-A Visit Information Start: 04/09/20 17:59 Freq: Status: Active Protocol: Document 06/10/20 08:17 LRN (Rec: 06/10/20 09:02 LRN [id number]) Out-Patient Physical Therapy Visit Information Visit Information Visit Type Treatment Note Visit Start Time 08:17 Visit Stop Time 09:02 Total Visit Minutes 45 Visit Number 4 Evaluation Information Evaluation Date 04/12/20 Precautions Precautions IUD in place. Post : s/p 7 wks, 6 days ( on 02/17/20). Manual extraction of placenta with no incisions. PT-OP-B Current Condition Start: 04/09/20 17:59 Freq: Status: Active Protocol: Document 04/12/20 12:23 LRN (Rec: 04/12/20 13:49 LRN [id number]) Current Condition History of Current Condition Onset Date 02/17/20 Current Complaints Significant urinary leakage History of Current Condition 8 weeks ago, vaginal with minor superficial tear. Manual extraction of placenta, no incisions. Feels she is having way more leaking than common. Not much leakage in AM. As day progresses she states the urinary leakage gets worse and by afternoon, pads are full after 1-2 hrs wear. She reports no feeling of a sensation to urinate and has no feeling of falling out . Activities like walking going up/down stairs increases her leakage significantly. Night time she wakes to feed baby and urinate although she doesn't have the urge to urinate. She uses an online exercise program developed by a PT (Expecting and Impowered program) 3x/week to build cardio post . Consciously she uses the bathroom every 1-2 hrs. Pt is also concerned of her Diastasis Rectus and preports she can fit 2 fingers (depth of fingers, not width) between her rectus muscles. Prior Treatments and Tests None. Symptoms of urgency before . During only incontinent with sneezing. Pt reports having an IUD placed recently. Future Testing and Treatments Planned None Treatment Goals Patient/Caregiver Goals Pt goal with therapy is to regain PF strength to eliminate leakage. Prior Functional Status Baseline Function- ADL's Independent Baseline Function- Mobility Independent Baseline Function- Other Urgency leakage, running to bathroom. Current Functional Impairments (Reported) Functional Limitations- ADL's Leakage with with sneezing, coughing, laughing, stairs up/ down, walking carrying baby, leaking prior to going to bathroom. Functional Limitations- Mobility/Gait Urinary leakage with gait. Functional Limitations- Work/School Worked in [employer] , currently unemployed but hopes to return to the workforce. Functional Limitations- Recreation/ Exercises 3-4x/week, Hobbies resistance type exercises with hand weights, Kegels daily, walking 2-3x/week for 30 minutes on own or with front holding baby carrier. Personal Factors Other Personal Factors That May Effect Pt spouse is , Therapy/Recovery sometimes travels. PT-OP-C Subjective Start: 04/09/20 17:59 Freq: Status: Active Protocol: Document 06/10/20 08:17 LRN (Rec: 06/10/20 09:02 LRN [id number]) OP-PT Subjective Patient Comments Patient Comments States the K-tape helped her to keep her abdomen engaged. [place] irritated by the tape rolling off. After 2 days wear didn't notice it as much. When standing or lifting/ setting down baby sucks in tummy now out of habit, and not as well but is able to do proper breathing. Wet underwear 4 times yesterday and then kept pad on. She states she feels she is leaking but is is so miniimal that she can't pinpoint when it happens. Has found during the first part of the day she is leaking less than she thought she was. Trying to drink more water, bowels have been good. Finds leaking with extended walking. PT-OP-I Pelvic Floor Start: 04/09/20 17:59 Freq: Status: Active Protocol: Document 04/12/20 12:23 LRN (Rec: 04/12/20 13:49 LRN [id number]) Pelvic Floor Assessment Urine Other Urinary Symptoms Tender external R Labia majora . Leakage Size Medium Leakage Cause Cough,Exercise,Lifting,Sneeze Leaks Per Day Constant Voiding Frequency 8 Nocturia 2 Pads Used In 24 Hours 6 Urine Pad Type Depends Bowel Bowel Symptoms Uncontrolled Flatulence Other Bowel Symptoms Denies constipation. Bowel Movement Frequency 1-2 Dickens Stool Chart Type 1-7 3 Dickens Stool Chart Comments Occasionally type 4 Prolapse Cystocele Grade 2 Rectocele Grade 1 Perineal Descent Resting Present Bearing Present Contraction Ability Manual Muscle Testing Left 1 Manual Muscle Testing Right 1 Manual Muscle Testing Anterior 0 Manual Muscle Testing Posterior 3 Muscle Endurance (Seconds) 10 Number of Quick Contractions In 10 0 Seconds Comments Pelvic Floor Comments Visual inspection: -Can see a anal wink & mildly clitoral nod. -Vaginal gapping. -Red Perineum PALPATION: LONG HOLD:1 finger palpation internally can only feel contraction of posterior floor . QUICK FLICS: Lift only felt on L lateral wall. PT-OP-J Posture/Palpation/Skin Start: 04/09/20 17:59 Freq: Status: Active Protocol: Document 06/10/20 08:17 LRN (Rec: 06/10/20 12:24 LRN [id number]) Palpation Assessment Location Diastasis Rectus Palpation Location DR Palpation Details Umbilicus: 3 above edges felt 1.5 finger widths (very shallow) 2 above 1.5 finger widths ( shallow) 1 above 1.5 finger widths 1 below 2 finger widths 2 below 1 finger width (very shallow) 3 below 1.5 finger widths ( feeling edges) PT-OP-K Range of Motion Start: 04/09/20 17:59 Freq: Status: Active Protocol: Document 04/12/20 12:23 LRN (Rec: 04/12/20 13:49 LRN [id number]) Lumbar Spine Range of Motion Lumbar Spine Active Degrees Testing Position Standing Flexion 45 Extension 15 Rotation Left 45 Rotation Right 45 Lateral Flexion Left 34 Lateral Flexion Right 37 Hip Goniometric Range of Motion Hip Right Passive Testing Position Supine Straight Leg Raise 80 Internal Rotation 38 External Rotation 65 Left Passive Testing Position Supine Straight Leg Raise 90 Internal Rotation 40 External Rotation 65 PT-OP-M Strength Start: 04/09/20 17:59 Freq: Status: Active Protocol: Document 04/12/20 12:23 LRN (Rec: 04/12/20 13:49 LRN [id number]) Trunk Strength Trunk Manual Muscle Testing Testing Position Supine Rotation Left 4 Good Rotation Right 4 Good Core Stabilization Loss of stabilization with MMT of LE's. Hip Strength Hip Manual Muscle Testing Right Comments Generally 5/5. Left Comments Generally 5/5. PT-OP-Q Treatments Start: 04/09/20 17:59 Freq: Status: Active Protocol: Document 06/10/20 08:17 LRN (Rec: 06/10/20 09:02 LRN [id number]) Manual Therapy Treatment Taping K-tape Body Location Abdomen Treatment Focus DR closure Type of Tape Kinesio Tape Skin Inspection Good Comments Palpation prior to application (see palpation) Umbilicus: 3 above 1.5 finger widths ( very shallow) 2 above 1.5 finger widths 1 above 1.5 finger widths 1 below 2 finger widths 2 below 1 finger width (very shallow) 3 below 1.5 finger widths ( feeling edges) Self-Care/Home Management Treatment Education Other Education Discussed pt leakage patterns, and made suggested changes as appropriate (voiding with feeding of daughter with recommendation of retraining once schedules change). Discussed K-tape usage. Discussed transfers and body mechanics and combination of proper breathing. Educated pt in proper genital hygiene and vulvar care. Discussed and educated pt in bladder retraining. Activities Self-Care/Home Management Activities Issued & reviewed handouts of genital hygiene and vulvar care. Issued handout for Bladder Retraining and reviewed. PT-OP-T Assessment and Plan Start: 04/09/20 17:59 Freq: Status: Active Protocol: Document 06/10/20 08:17 LRN (Rec: 06/10/20 09:02 LRN [id number]) Physical Therapy Assessment Goals Four Impairment Increased frequency of voiding (day 8x or every 1-2hrs, nighttime 2x). Short Term Goal (STG) Decrease daytime voiding to 5- 7 times. STG Duration 05/14/20 Time Checker Goal (LTG) Decrease nighttime voiding to 1x/night. LTG Duration 06/14/19 Three Impairment Trunk strength Short Term Goal (STG) Pt will be educated in proper trunk care (TA/protecting DR), TA strengthening, and pt will be able to lift her legs against gravity with good trunk stability. STG Duration 05/14/20 (06/10/20: Pt able to perform TA without doming) [facility] Goal (LTG) Pt will be able to perform resisted hip flex, ext, AB with good trunk stability. LTG Duration 07/11/20 Two Impairment PF Strength Short Term Goal (STG) Improve PF strength to 2/5 around the PF clock, with improved level of continence with walking and stair ambulation (Initial: Long Hold 10 secs, Quick Flicks 0 reps - lacks superficial PF ms contraction; PF strength is 1/5 left & right lateral beltran; 0/5 anterior, 3/5 posterior). STG Duration 06/14/19 [facility] Goal (LTG) Improve PF strength to 3/5 with decreased complaints of urinary stress incontinent symptoms and pt will become aware of need to urinate and to remain continent with stair ambulation and in the presence of a strong cough, sneeze, laughing. LTG Duration 07/11/20 One Impairment Lacks appropriate self care HEP Short Term Goal (STG) Educate pt in appropriate self care exercise using an online exercise program developed by a PT (Expecting and Impowered program), 3x/week to build cardio post . STG Duration 04/26/20 [facility] Goal (LTG) Pt will be independent in a self care HEP for PF/core strengthening. LTG Duration 07/11/20 (05/03/20: Progressing) Progress Towards Goals Progress Comments Improved TA contraction with no doming noted with TA contraction Assessment Summary Assessment Pt shows good understanding after review of educational materials and urge deference bladder training. She shows no significant soft tissue change at Diastasis Rectus above umbilicus, below umbilicus she is slightly wider 1: below, but less 2-3 below with shallow diastasis present. Pt needs soft tissue stretch of trunk rotators and Urachus to help with closure. Good TA contraction ability. Physical Therapy Plan Frequency and Duration Frequency of Treatment 1x/Week Plan of Care Start Date 04/12/20 Plan of Care End Date 07/11/20 Next Visit Focus/Plan Next Note Type Treatment Note Next Visit Plan Review her online cardiac program. Progress LE roll in/out program. STM for stretch to lateral beltran of PF and perineum, and abdomen (rotators and urachus) to help with DR closure. Hip stretches (ER>IR, PSLR on right). Sacral Mobilization to correct tilt. Post- pelvic/core stabilization.
--- NOTE | 2020-06-17 14:16 | PT.OTN ---
Current Diagnoses Stiffness of unspecified hip, not elsewhere classified (06/17/20) Muscle weakness (generalized) (06/17/20) Stress incontinence (female) (male) (06/17/20) Abnormal posture (06/17/20) Unspecified urinary incontinence (06/17/20) Physical Therapy Treatment Note PT-OP-A Visit Information Start: 04/09/20 17:59 Freq: Status: Active Protocol: Document 06/17/20 08:19 LRN (Rec: 06/17/20 09:03 LRN [id number]) Out-Patient Physical Therapy Visit Information Visit Information Visit Type Treatment Note Visit Start Time 08:19 Visit Stop Time 09:01 Total Visit Minutes 42 Visit Number 5 Evaluation Information Evaluation Date 04/12/20 Precautions Precautions IUD in place. Post : s/p 7 wks, 6 days ( on 02/17/20). Manual extraction of placenta with no incisions. PT-OP-B Current Condition Start: 04/09/20 17:59 Freq: Status: Active Protocol: Document 04/12/20 12:23 LRN (Rec: 04/12/20 13:49 LRN [id number]) Current Condition History of Current Condition Onset Date 02/17/20 Current Complaints Significant urinary leakage History of Current Condition 8 weeks ago, vaginal with minor superficial tear. Manual extraction of placenta, no incisions. Feels she is having way more leaking than common. Not much leakage in AM. As day progresses she states the urinary leakage gets worse and by afternoon, pads are full after 1-2 hrs wear. She reports no feeling of a sensation to urinate and has no feeling of falling out . Activities like walking going up/down stairs increases her leakage significantly. Night time she wakes to feed baby and urinate although she doesn't have the urge to urinate. She uses an online exercise program developed by a PT (Expecting and Impowered program) 3x/week to build cardio post . Consciously she uses the bathroom every 1-2 hrs. Pt is also concerned of her Diastasis Rectus and preports she can fit 2 fingers (depth of fingers, not width) between her rectus muscles. Prior Treatments and Tests None. Symptoms of urgency before . During only incontinent with sneezing. Pt reports having an IUD placed recently. Future Testing and Treatments Planned None Treatment Goals Patient/Caregiver Goals Pt goal with therapy is to regain PF strength to eliminate leakage. Prior Functional Status Baseline Function- ADL's Independent Baseline Function- Mobility Independent Baseline Function- Other Urgency leakage, running to bathroom. Current Functional Impairments (Reported) Functional Limitations- ADL's Leakage with with sneezing, coughing, laughing, stairs up/ down, walking carrying baby, leaking prior to going to bathroom. Functional Limitations- Mobility/Gait Urinary leakage with gait. Functional Limitations- Work/School Worked in [employer] , currently unemployed but hopes to return to the workforce. Functional Limitations- Recreation/ Exercises 3-4x/week, Hobbies resistance type exercises with hand weights, Kegels daily, walking 2-3x/week for 30 minutes on own or with front holding baby carrier. Personal Factors Other Personal Factors That May Effect Pt spouse is , Therapy/Recovery sometimes travels. PT-OP-C Subjective Start: 04/09/20 17:59 Freq: Status: Active Protocol: Document 06/17/20 08:19 LRN (Rec: 06/17/20 09:03 LRN [id number]) OP-PT Subjective Patient Comments Patient Comments Not a ton of noticeable change , notices leakage at a specific time. When rocks the pt squats) causes leaks. After 1 hr long walks, leaks badly and outside the pad. During the day when not doing those things, leaks a little better. Changing underwear 3- 4 X/day. PT-OP-I Pelvic Floor Start: 04/09/20 17:59 Freq: Status: Active Protocol: Document 04/12/20 12:23 LRN (Rec: 04/12/20 13:49 LRN [id number]) Pelvic Floor Assessment Urine Other Urinary Symptoms Tender external R Labia majora . Leakage Size Medium Leakage Cause Cough,Exercise,Lifting,Sneeze Leaks Per Day Constant Voiding Frequency 8 Nocturia 2 Pads Used In 24 Hours 6 Urine Pad Type Depends Bowel Bowel Symptoms Uncontrolled Flatulence Other Bowel Symptoms Denies constipation. Bowel Movement Frequency 1-2 Fisher Stool Chart Type 1-7 3 Fisher Stool Chart Comments Occasionally type 4 Prolapse Cystocele Grade 2 Rectocele Grade 1 Perineal Descent Resting Present Bearing Present Contraction Ability Manual Muscle Testing Left 1 Manual Muscle Testing Right 1 Manual Muscle Testing Anterior 0 Manual Muscle Testing Posterior 3 Muscle Endurance (Seconds) 10 Number of Quick Contractions In 10 0 Seconds Comments Pelvic Floor Comments Visual inspection: -Can see a anal wink & mildly clitoral nod. -Vaginal gapping. -Red Perineum PALPATION: LONG HOLD:1 finger palpation internally can only feel contraction of posterior floor . QUICK FLICS: Lift only felt on L lateral wall. PT-OP-J Posture/Palpation/Skin Start: 04/09/20 17:59 Freq: Status: Active Protocol: Document 06/10/20 08:17 LRN (Rec: 06/10/20 12:24 LRN [id number]) Palpation Assessment Location Diastasis Rectus Palpation Location DR Palpation Details Umbilicus: 3 above edges felt 1.5 finger widths (very shallow) 2 above 1.5 finger widths ( shallow) 1 above 1.5 finger widths 1 below 2 finger widths 2 below 1 finger width (very shallow) 3 below 1.5 finger widths ( feeling edges) PT-OP-K Range of Motion Start: 04/09/20 17:59 Freq: Status: Active Protocol: Document 04/12/20 12:23 LRN (Rec: 04/12/20 13:49 LRN [id number]) Lumbar Spine Range of Motion Lumbar Spine Active Degrees Testing Position Standing Flexion 45 Extension 15 Rotation Left 45 Rotation Right 45 Lateral Flexion Left 34 Lateral Flexion Right 37 Hip Goniometric Range of Motion Hip Right Passive Testing Position Supine Straight Leg Raise 80 Internal Rotation 38 External Rotation 65 Left Passive Testing Position Supine Straight Leg Raise 90 Internal Rotation 40 External Rotation 65 PT-OP-M Strength Start: 04/09/20 17:59 Freq: Status: Active Protocol: Document 04/12/20 12:23 LRN (Rec: 04/12/20 13:49 LRN [id number]) Trunk Strength Trunk Manual Muscle Testing Testing Position Supine Rotation Left 4 Good Rotation Right 4 Good Core Stabilization Loss of stabilization with MMT of LE's. Hip Strength Hip Manual Muscle Testing Right Comments Generally 5/5. Left Comments Generally 5/5. PT-OP-Q Treatments Start: 04/09/20 17:59 Freq: Status: Active Protocol: Document 06/17/20 08:19 LRN (Rec: 06/17/20 09:03 LRN [id number]) Therapeutic Exercises Supine Exercises TA training Supine Exercise Name TA awareness training Reps/Minutes 15' MCKENNA ex Supine Exercise Name Lower TA training - MCKENNA Reps/Minutes 3' Deep Breathing Supine Exercise Name Deep Breathing - R side of ribs expansion Reps/Minutes 7' Comments Phys & v. cuing by PT f/b teaching self-phys cuing. Manual Therapy Treatment Soft Tissue Mobilization Abdomen Body Location Abdomen (urachus) & to correct R rotated core. Mobilization Type Myofascial Release Intensity/Depth Superficial Body Position Supine PT-OP-T Assessment and Plan Start: 04/09/20 17:59 Freq: Status: Active Protocol: Document 06/17/20 08:19 LRN (Rec: 06/17/20 09:03 LRN [id number]) Physical Therapy Assessment Goals Four Impairment Increased frequency of voiding (day 8x or every 1-2hrs, nighttime 2x). Short Term Goal (STG) Decrease daytime voiding to 5- 7 times. STG Duration 05/14/[address] [facility] Goal (LTG) Decrease nighttime voiding to 1x/night. LTG Duration 06/14/19 Three Impairment Trunk strength Short Term Goal (STG) Pt will be educated in proper trunk care (TA/protecting DR), TA strengthening, and pt will be able to lift her legs against gravity with good trunk stability. STG Duration 05/14/20 (06/17/20: Pt able to perform TA without doming) [facility] Goal (LTG) Pt will be able to perform resisted hip flex, ext, AB with good trunk stability. LTG Duration 07/11/20 Two Impairment PF Strength Short Term Goal (STG) Improve PF strength to 2/5 around the PF clock, with improved level of continence with walking and stair ambulation (Initial: Long Hold 10 secs, Quick Flicks 0 reps - lacks superficial PF ms contraction; PF strength is 1/5 left & right lateral beltran; 0/5 anterior, 3/5 posterior). STG Duration 06/14/19 [facility] Goal (LTG) Improve PF strength to 3/5 with decreased complaints of urinary stress incontinent symptoms and pt will become aware of need to urinate and to remain continent with stair ambulation and in the presence of a strong cough, sneeze, laughing. LTG Duration 07/11/20 One Impairment Lacks appropriate self care HEP Short Term Goal (STG) Educate pt in appropriate self care exercise using an online exercise program developed by a PT (Shawning and Impowered program), 3x/week to build cardio post . STG Duration 04/26/[address] Magistrate Goal (LTG) Pt will be independent in a self care HEP for PF/core strengthening. LTG Duration 07/11/20 (05/03/20: Progressing) Assessment Summary Assessment Pt showed improved rib positioning after MFR of trunk . Pt L. Transverse abdominus is weaker than R. Physical Therapy Plan Frequency and Duration Frequency of Treatment 1x/Week Plan of Care Start Date 04/12/20 Plan of Care End Date 07/11/20 Next Visit Focus/Plan Next Note Type Progress Note Next Visit Plan New POC needed soon. Frequency ever 1.5 weeks for next 4 weeks for pt to work on achieving automatic TA contraction. Review her online cardiac program. Add Theraball PF strengthening (Pelvic clocks and discuss progressive use of TBall for vertical movements). Progress LE roll in/out PF/ core strengthening program. STM for stretch to lateral beltran of PF and perineum, and abdomen (rotators and urachus) to help with DR closure. Hip stretches (ER>IR, PSLR on right). Sacral Mobilization to correct tilt. Post- pelvic/core stabilization.
--- NOTE | 2020-07-12 14:31 | PT.OTN ---
Current Diagnoses Stiffness of unspecified hip, not elsewhere classified (07/12/20) Muscle weakness (generalized) (07/12/20) Stress incontinence (female) (male) (07/12/20) Abnormal posture (07/12/20) Unspecified urinary incontinence (07/12/20) Physical Therapy Treatment Note PT-OP-A Visit Information Start: 04/09/20 17:59 Freq: Status: Active Protocol: Document 07/12/20 12:46 LRN (Rec: 07/12/20 14:25 LRN [id number]) Out-Patient Physical Therapy Visit Information Visit Information Visit Type Progress Note Visit Start Time 12:46 Visit Stop Time 13:42 Total Visit Minutes 58 Visit Number 6 Evaluation Information Evaluation Date 04/12/20 Precautions Precautions IUD in place. Post : s/p 7 wks, 6 days ( on 02/17/20). Manual extraction of placenta with no incisions. PT-OP-B Current Condition Start: 04/09/20 17:59 Freq: Status: Active Protocol: Document 04/12/20 12:23 LRN (Rec: 04/12/20 13:49 LRN [id number]) Current Condition History of Current Condition Onset Date 02/17/20 Current Complaints Significant urinary leakage History of Current Condition 8 weeks ago, vaginal with minor superficial tear. Manual extraction of placenta, no incisions. Feels she is having way more leaking than common. Not much leakage in AM. As day progresses she states the urinary leakage gets worse and by afternoon, pads are full after 1-2 hrs wear. She reports no feeling of a sensation to urinate and has no feeling of falling out . Activities like walking going up/down stairs increases her leakage significantly. Night time she wakes to feed baby and urinate although she doesn't have the urge to urinate. She uses an online exercise program developed by a PT (Expecting and Impowered program) 3x/week to build cardio post . Consciously she uses the bathroom every 1-2 hrs. Pt is also concerned of her Diastasis Rectus and preports she can fit 2 fingers (depth of fingers, not width) between her rectus muscles. Prior Treatments and Tests None. Symptoms of urgency before . During only incontinent with sneezing. Pt reports having an IUD placed recently. Future Testing and Treatments Planned None Treatment Goals Patient/Caregiver Goals Pt goal with therapy is to regain PF strength to eliminate leakage. Prior Functional Status Baseline Function- ADL's Independent Baseline Function- Mobility Independent Baseline Function- Other Urgency leakage, running to bathroom. Current Functional Impairments (Reported) Functional Limitations- ADL's Leakage with with sneezing, coughing, laughing, stairs up/ down, walking carrying baby, leaking prior to going to bathroom. Functional Limitations- Mobility/Gait Urinary leakage with gait. Functional Limitations- Work/School Worked in [employer] , currently unemployed but hopes to return to the workforce. Functional Limitations- Recreation/ Exercises 3-4x/week, Hobbies resistance type exercises with hand weights, Kegels daily, walking 2-3x/week for 30 minutes on own or with front holding baby carrier. Personal Factors Other Personal Factors That May Effect Pt spouse is , Therapy/Recovery sometimes travels. PT-OP-C Subjective Start: 04/09/20 17:59 Freq: Status: Active Protocol: Document 07/12/20 12:46 LRN (Rec: 07/12/20 14:25 LRN [id number]) OP-PT Subjective Patient Comments Patient Comments This past weekend has noticed a bit of improvement. Prior to that she was having more large leaks. Has been doing PF stretching for a few days in a row and is now seeing less leakage. Leaks with bouncing. Requests PF stretching together. PT-OP-I Pelvic Floor Start: 04/09/20 17:59 Freq: Status: Active Protocol: Document 04/12/20 12:23 LRN (Rec: 04/12/20 13:49 LRN [id number]) Pelvic Floor Assessment Urine Other Urinary Symptoms Tender external R Labia majora . Leakage Size Medium Leakage Cause Cough,Exercise,Lifting,Sneeze Leaks Per Day Constant Voiding Frequency 8 Nocturia 2 Pads Used In 24 Hours 6 Urine Pad Type Depends Bowel Bowel Symptoms Uncontrolled Flatulence Other Bowel Symptoms Denies constipation. Bowel Movement Frequency 1-2 [place] Stool Chart Type 1-7 3 [place] Stool Chart Comments Occasionally type 4 Prolapse Cystocele Grade 2 Rectocele Grade 1 Perineal Descent Resting Present Bearing Present Contraction Ability Manual Muscle Testing Left 1 Manual Muscle Testing Right 1 Manual Muscle Testing Anterior 0 Manual Muscle Testing Posterior 3 Muscle Endurance (Seconds) 10 Number of Quick Contractions In 10 0 Seconds Comments Pelvic Floor Comments Visual inspection: -Can see a anal wink & mildly clitoral nod. -Vaginal gapping. -Red Perineum PALPATION: LONG HOLD:1 finger palpation internally can only feel contraction of posterior floor . QUICK FLICS: Lift only felt on L lateral wall. PT-OP-J Posture/Palpation/Skin Start: 04/09/20 17:59 Freq: Status: Active Protocol: Document 06/10/20 08:17 LRN (Rec: 06/10/20 12:24 LRN [id number]) Palpation Assessment Location Diastasis Rectus Palpation Location DR Palpation Details Umbilicus: 3 above edges felt 1.5 finger widths (very shallow) 2 above 1.5 finger widths ( shallow) 1 above 1.5 finger widths 1 below 2 finger widths 2 below 1 finger width (very shallow) 3 below 1.5 finger widths ( feeling edges) PT-OP-K Range of Motion Start: 04/09/20 17:59 Freq: Status: Active Protocol: Document 04/12/20 12:23 LRN (Rec: 04/12/20 13:49 LRN [id number]) Lumbar Spine Range of Motion Lumbar Spine Active Degrees Testing Position Standing Flexion 45 Extension 15 Rotation Left 45 Rotation Right 45 Lateral Flexion Left 34 Lateral Flexion Right 37 Hip Goniometric Range of Motion Hip Right Passive Testing Position Supine Straight Leg Raise 80 Internal Rotation 38 External Rotation 65 Left Passive Testing Position Supine Straight Leg Raise 90 Internal Rotation 40 External Rotation 65 PT-OP-M Strength Start: 04/09/20 17:59 Freq: Status: Active Protocol: Document 04/12/20 12:23 LRN (Rec: 04/12/20 13:49 LRN [id number]) Trunk Strength Trunk Manual Muscle Testing Testing Position Supine Rotation Left 4 Good Rotation Right 4 Good Core Stabilization Loss of stabilization with MMT of LE's. Hip Strength Hip Manual Muscle Testing Right Comments Generally 5/5. Left Comments Generally 5/5. PT-OP-Q Treatments Start: 04/09/20 17:59 Freq: Status: Active Protocol: Document 07/12/20 12:46 LRN (Rec: 07/12/20 14:25 LRN [id number]) Therapeutic Exercises Supine Exercises PF Bridge w/BKFO Supine Exercise Name PF Bridge w/BKFO Reps/Minutes 3' Comments v. cuing for breathing Pelvic Floor Clock Supine Exercise Name Pelvic Floor Clock Reps/Minutes 1x around entire clock, 5 reps each Piriformis stretch Supine Exercise Name Piriformis stretch Side bilateral Reps/Minutes 6' Comments Extra time for max stretch tolerance positioning Fig 4 stetch Supine Exercise Name Fig 4 stretch (R>L), f/b active stretch Side bilateral Reps/Minutes 5' Comments Extra time needed for proper positioning and active stretch Deep Breathing Supine Exercise Name Deep Breathing - L side anteromedial under ribs Reps/Minutes 7' Comments Phys & v. cuing by PT f/b self -phys cuing. Manual Therapy Treatment Soft Tissue Mobilization PF Body Location PF stretch Comments 30' Self-Care/Home Management Treatment Education Patient Education Home Exercise Program Activities Self-Care/Home Management Activities Issued & reviewed HEP: Hip Fig 4 stretch, Pirifromis stretch. Written I/S for PF clock and Bridge/PF/BKFO. PT-OP-T Assessment and Plan Start: 04/09/20 17:59 Freq: Status: Active Protocol: Document 07/12/20 12:46 LRN (Rec: 07/12/20 14:25 LRN [id number]) Physical Therapy Assessment Rehab Potential Rehabilitation Potential Good Evaluation Complexity Number of Personal Factors/Comorbidities 1-2 Impairments Impairments Activity Tolerance,Posture,ROM ,Soft Tissue Mobility,Strength Goals Four Impairment Increased frequency of voiding (day 8x or every 1-2hrs, nighttime 2x). Short Term Goal (STG) Decrease daytime voiding to 5- 7 times. STG Duration 08/11/20 Peanut Sheller Goal (LTG) Decrease nighttime voiding to 1x/night. LTG Duration 09/10/20 Three Impairment Trunk strength Short Term Goal (STG) Pt will be educated in proper trunk care (TA/protecting DR), TA strengthening, and pt will be able to lift her legs against gravity with good trunk stability. STG Duration 08/11/20 (06/17/20: Pt able to perform TA without doming) Peanut Sheller Goal (LTG) Pt will be able to perform resisted hip flex, ext, AB with good trunk stability. LTG Duration 09/10/20 Two Impairment PF Strength Short Term Goal (STG) Improve PF strength to 2/5 around the PF clock, with improved level of continence with walking and stair ambulation (Initial: Long Hold 10 secs, Quick Flicks 0 reps - lacks superficial PF ms contraction; PF strength is 1/5 left & right lateral beltran; 0/5 anterior, 3/5 posterior). STG Duration 08/11/20 Peanut Sheller Goal (LTG) Improve PF strength to 3/5 with decreased complaints of urinary stress incontinent symptoms and pt will become aware of need to urinate and to remain continent with stair ambulation and in the presence of a strong cough, sneeze, laughing. LTG Duration 10/10/20 One Impairment Lacks appropriate self care HEP Short Term Goal (STG) Educate pt in appropriate self care exercise using an online exercise program developed by a PT (Expecting and Impowered program), 3x/week to build cardio post . STG Duration 08/11/20 Retirement Goal (LTG) Pt will be independent in a self care HEP for PF/core strengthening. (HANDOUTS Issued: *Genital hygiene, *vulvar care, * Bladder Retraining. HEP Issued/Reviewed: *Deep Breathing. STRETCHES: *Fig 4, * Piriformis. INSTRUCTIONS FOR: Bridge w/PF/ BKFO, Around the PF clock) LTG Duration 10/10/20 (07/12/19: Progressing) Progress Towards Goals Progress Comments Progressed HEP. Assessment Summary Assessment Pt presents with post urinary incontinence due to soft tissue and mechanical dysfunction of the spine and hips. She subjectively reports some improvement, but her progress is slow as expected being ~5 months . Pt anxious to begin more vigorous exercise, but she is concerned with increased leakage with bouncing activities. Her over activity may hinder her recovery over time, although she does appear to be gaining greater awareness of her body' s limitation when it comes to activities that would cause increased stress on her PF. The pt pill benefit from continued skilled physical therapy to progress her on her PF rehabilitation program towards continence with walking, daily activities. PF Weakness with most leakage with walking, bouncing. Pt showing much improved deep breathing with R side. Small area on L UQ medially towards sternum that shows decreased mobility; therefore weaker on left of TA than right. Hip ER is decreased on R side, sonal IR is mildly tight. PF tightness on L side for medial and caudal glide.. Physical Therapy Plan Frequency and Duration Frequency of Treatment 1x/Week Plan of Care Start Date 07/12/20 Plan of Care End Date 10/10/20 Therapeutic Interventions Therapeutic Interventions Coordination Training,Home Exercise Program,Manual Therapy,Neuromuscular Re- education,Patient/Caregiver Education,Self-Care/Home Management,Soft Tissue Mobilization,Therapeutic Exercises Next Visit Focus/Plan Next Note Type Treatment Note Next Visit Plan Continue Post- pelvic/ core stabilization. Frequency ever 1.5 weeks for next 4 weeks for pt to work on achieving automatic TA contraction. Review her online cardiac program. Progress LE roll in/out PF/ core strengthening program with resistance and proper breathing. STM for stretch to lateral beltran of PF, perineum, and abdomen (rotators and urachus) to help with DR closure. Review previously issued exercises: Hip stretches (ER> IR) add PSLR on right & bridging/BKFO, PF Clock. Sacral Mobilization to correct tilt. Add T-ball PF strengthening ( Pelvic clocks and discuss progressive use of T-Ball for vertical movements).
--- NOTE | 2020-07-22 14:15 | PT.OTN ---
Current Diagnoses Stiffness of unspecified hip, not elsewhere classified (07/22/20) Muscle weakness (generalized) (07/22/20) Stress incontinence (female) (male) (07/22/20) Abnormal posture (07/22/20) Unspecified urinary incontinence (07/22/20) Physical Therapy Treatment Note PT-OP-A Visit Information Start: 04/09/20 17:59 Freq: Status: Active Protocol: Document 07/22/20 08:17 LRN (Rec: 07/22/20 09:04 LRN [id number]) Out-Patient Physical Therapy Visit Information Visit Information Visit Type Treatment Note Visit Start Time 08:16 Visit Stop Time 08:56 Total Visit Minutes 40 Visit Number 7 Evaluation Information Evaluation Date 04/12/20 Precautions Precautions IUD in place. Post : s/p 7 wks, 6 days ( on 02/17/20). Manual extraction of placenta with no incisions. PT-OP-B Current Condition Start: 04/09/20 17:59 Freq: Status: Active Protocol: Document 04/12/20 12:23 LRN (Rec: 04/12/20 13:49 LRN [id number]) Current Condition History of Current Condition Onset Date 02/17/20 Current Complaints Significant urinary leakage History of Current Condition 8 weeks ago, vaginal with minor superficial tear. Manual extraction of placenta, no incisions. Feels she is having way more leaking than common. Not much leakage in AM. As day progresses she states the urinary leakage gets worse and by afternoon, pads are full after 1-2 hrs wear. She reports no feeling of a sensation to urinate and has no feeling of falling out . Activities like walking going up/down stairs increases her leakage significantly. Night time she wakes to feed baby and urinate although she doesn't have the urge to urinate. She uses an online exercise program developed by a PT (Expecting and Impowered program) 3x/week to build cardio post . Consciously she uses the bathroom every 1-2 hrs. Pt is also concerned of her Diastasis Rectus and preports she can fit 2 fingers (depth of fingers, not width) between her rectus muscles. Prior Treatments and Tests None. Symptoms of urgency before . During only incontinent with sneezing. Pt reports having an IUD placed recently. Future Testing and Treatments Planned None Treatment Goals Patient/Caregiver Goals Pt goal with therapy is to regain PF strength to eliminate leakage. Prior Functional Status Baseline Function- ADL's Independent Baseline Function- Mobility Independent Baseline Function- Other Urgency leakage, running to bathroom. Current Functional Impairments (Reported) Functional Limitations- ADL's Leakage with with sneezing, coughing, laughing, stairs up/ down, walking carrying baby, leaking prior to going to bathroom. Functional Limitations- Mobility/Gait Urinary leakage with gait. Functional Limitations- Work/School Worked in [employer] , currently unemployed but hopes to return to the workforce. Functional Limitations- Recreation/ Exercises 3-4x/week, Hobbies resistance type exercises with hand weights, Kegels daily, walking 2-3x/week for 30 minutes on own or with front holding baby carrier. Personal Factors Other Personal Factors That May Effect Pt spouse is , Therapy/Recovery sometimes travels. PT-OP-C Subjective Start: 04/09/20 17:59 Freq: Status: Active Protocol: Document 07/22/20 08:17 LRN (Rec: 07/22/20 09:04 LRN [id number]) OP-PT Subjective Patient Comments Patient Comments Trajectory is still good. Making notes with exercises ( squats), doing contractions when doing those things; therefore having less leakage. Doing PF stretches and having a little more leakage the day after, but not significant. Has questions regarding her home exercises, wondering what to do and what to avoid. PT-OP-I Pelvic Floor Start: 04/09/20 17:59 Freq: Status: Active Protocol: Document 04/12/20 12:23 LRN (Rec: 04/12/20 13:49 LRN [id number]) Pelvic Floor Assessment Urine Other Urinary Symptoms Tender external R Labia majora . Leakage Size Medium Leakage Cause Cough,Exercise,Lifting,Sneeze Leaks Per Day Constant Voiding Frequency 8 Nocturia 2 Pads Used In 24 Hours 6 Urine Pad Type Depends Bowel Bowel Symptoms Uncontrolled Flatulence Other Bowel Symptoms Denies constipation. Bowel Movement Frequency 1-2 [place] Stool Chart Type 1-7 3 [place] Stool Chart Comments Occasionally type 4 Prolapse Cystocele Grade 2 Rectocele Grade 1 Perineal Descent Resting Present Bearing Present Contraction Ability Manual Muscle Testing Left 1 Manual Muscle Testing Right 1 Manual Muscle Testing Anterior 0 Manual Muscle Testing Posterior 3 Muscle Endurance (Seconds) 10 Number of Quick Contractions In 10 0 Seconds Comments Pelvic Floor Comments Visual inspection: -Can see a anal wink & mildly clitoral nod. -Vaginal gapping. -Red Perineum PALPATION: LONG HOLD:1 finger palpation internally can only feel contraction of posterior floor . QUICK FLICS: Lift only felt on L lateral wall. PT-OP-J Posture/Palpation/Skin Start: 04/09/20 17:59 Freq: Status: Active Protocol: Document 07/22/20 08:17 LRN (Rec: 07/22/20 09:04 LRN [id number]) Palpation Assessment Location Diastasis Rectus Palpation Location DR Palpation Details Umbilicus: 3 above edges felt 1.5 finger widths (very shallow) 2 above 1.5 finger widths ( shallow) 1 above 1.5 finger widths 1 below 2 finger widths 2 below 1 finger width (very shallow) 3 below 1.5 finger widths ( feeling edges) PT-OP-K Range of Motion Start: 04/09/20 17:59 Freq: Status: Active Protocol: Document 04/12/20 12:23 LRN (Rec: 04/12/20 13:49 LRN [id number]) Lumbar Spine Range of Motion Lumbar Spine Active Degrees Testing Position Standing Flexion 45 Extension 15 Rotation Left 45 Rotation Right 45 Lateral Flexion Left 34 Lateral Flexion Right 37 Hip Goniometric Range of Motion Hip Right Passive Testing Position Supine Straight Leg Raise 80 Internal Rotation 38 External Rotation 65 Left Passive Testing Position Supine Straight Leg Raise 90 Internal Rotation 40 External Rotation 65 PT-OP-M Strength Start: 04/09/20 17:59 Freq: Status: Active Protocol: Document 04/12/20 12:23 LRN (Rec: 04/12/20 13:49 LRN [id number]) Trunk Strength Trunk Manual Muscle Testing Testing Position Supine Rotation Left 4 Good Rotation Right 4 Good Core Stabilization Loss of stabilization with MMT of LE's. Hip Strength Hip Manual Muscle Testing Right Comments Generally 5/5. Left Comments Generally 5/5. PT-OP-Q Treatments Start: 04/09/20 17:59 Freq: Status: Active Protocol: Document 07/22/20 08:17 LRN (Rec: 07/22/20 09:04 LRN [id number]) Therapeutic Exercises Supine Exercises BKFO Supine Exercise Name TA strengthening - BKFO Side left Pelvic R rotation Supine Exercise Name SLR, heel slides TA training Supine Exercise Name Left TA strengthening Side left Deep Breathing Supine Exercise Name Deep Breathing - 6 sec breath training Reps/Minutes 6' Comments Phys & v. cuing by PT f/b self -phys cuing. Sidelying Exercises TA tightening Sidelying Exercise Name TA tightening bilateral sides Side left Other Exercises Hands & Knees Other Exercise Name R leg ext - for neutral spine Side bilateral Comments R leg out Self-Care/Home Management Treatment Education Patient Education Home Exercise Program,Posture Other Education Extensive review and pt education in her core/pelvic stabilization with her current HEP, including multiple arm exercises (primarily arm ext) and movement patterns of arms and positioning of lower body for exercises. PT-OP-T Assessment and Plan Start: 04/09/20 17:59 Freq: Status: Active Protocol: Document 07/22/20 08:17 LRN (Rec: 07/22/20 09:04 LRN [id number]) Physical Therapy Assessment Goals Four Impairment Increased frequency of voiding (day 8x or every 1-2hrs, nighttime 2x). Short Term Goal (STG) Decrease daytime voiding to 5- 7 times. STG Duration 08/11/20 Fpc Goal (LTG) Decrease nighttime voiding to 1x/night. LTG Duration 09/10/20 Three Impairment Trunk strength Short Term Goal (STG) Pt will be educated in proper trunk care (TA/protecting DR), TA strengthening, and pt will be able to lift her legs against gravity with good trunk stability. STG Duration 08/11/20 (06/17/20: Pt able to perform TA without doming) Fpc Goal (LTG) Pt will be able to perform resisted hip flex, ext, AB with good trunk stability. LTG Duration 09/10/20 Two Impairment PF Strength Short Term Goal (STG) Improve PF strength to 2/5 around the PF clock, with improved level of continence with walking and stair ambulation (Initial: Long Hold 10 secs, Quick Flicks 0 reps - lacks superficial PF ms contraction; PF strength is 1/5 left & right lateral beltran; 0/5 anterior, 3/5 posterior). STG Duration 08/11/20 Fpc Goal (LTG) Improve PF strength to 3/5 with decreased complaints of urinary stress incontinent symptoms and pt will become aware of need to urinate and to remain continent with stair ambulation and in the presence of a strong cough, sneeze, laughing. LTG Duration 10/10/20 One Impairment Lacks appropriate self care HEP Short Term Goal (STG) Educate pt in appropriate self care exercise using an online exercise program developed by a PT (Expecting and Impowered program), 3x/week to build cardio post . (07/22/20: Reviewed pt's home ex's with modifications as needed to decrease unnecessary strain on PF). STG Duration 08/11/20 (07/22/20: MET GOAL) Acute Care Surgeon Goal (LTG) Pt will be independent in a self care HEP for PF/core strengthening. (HANDOUTS Issued: *Genital hygiene, *vulvar care, * Bladder Retraining. HEP Issued/Reviewed: *Deep Breathing. STRETCHES: *Fig 4, * Piriformis. INSTRUCTIONS FOR: Bridge w/PF/ BKFO, Around the PF clock) LTG Duration 10/10/20 (07/12/19: Progressing) Assessment Summary Assessment Pt appears to be slowly progressing and is becoming more receptive to limiting exercise (mobility and intensity) in order to allow her body more time to heal. Pt doing well on self care program. Recheck needed to see PF strength progress and if progression to vertical loading is appropriate. Physical Therapy Plan Frequency and Duration Frequency of Treatment 1x/Week Plan of Care Start Date 07/12/20 Plan of Care End Date 10/10/20 Next Visit Focus/Plan Next Note Type Treatment Note Next Visit Plan Re check progress towards goals (daytime & nighttime voiding times/day, TA strength with head lifts/leg lifts, ? assess PF strength). Continue Post- pelvic/ core stabilization. Frequency ever 1.5-2 weeks for next 4 weeks for pt to work on achieving automatic TA contraction. Progress LE roll in/out PF/ core strengthening program with resistance and proper breathing. STM for stretch to lateral beltran of PF, perineum, and abdomen (rotators and urachus) to help with DR closure. Review previously issued exercises: Hip stretches (ER> IR) add PSLR on right & bridging/BKFO, PF Clock. Sacral Mobilization to correct tilt. Add T-ball PF strengthening ( Pelvic clocks and discuss progressive use of T-Ball for vertical movements).
--- NOTE | 2020-07-30 10:10 | PT.OTN ---
Current Diagnoses Stiffness of unspecified hip, not elsewhere classified (07/30/20) Muscle weakness (generalized) (07/30/20) Stress incontinence (female) (male) (07/30/20) Abnormal posture (07/30/20) Unspecified urinary incontinence (07/30/20) Physical Therapy Treatment Note PT-OP-A Visit Information Start: 04/09/20 17:59 Freq: Status: Active Protocol: Document 07/30/20 08:16 LRN (Rec: 07/30/20 09:02 LRN [id number]) Out-Patient Physical Therapy Visit Information Visit Information Visit Type Treatment Note Visit Start Time 08:16 Visit Stop Time 09:02 Total Visit Minutes 46 Visit Number 8 Evaluation Information Evaluation Date 04/12/20 Precautions Precautions IUD in place. Post : s/p on 02/16. Manual extraction of placenta with no incisions. PT-OP-B Current Condition Start: 04/09/20 17:59 Freq: Status: Active Protocol: Document 04/12/20 12:23 LRN (Rec: 04/12/20 13:49 LRN [id number]) Current Condition History of Current Condition Onset Date 02/17/20 Current Complaints Significant urinary leakage History of Current Condition 8 weeks ago, vaginal with minor superficial tear. Manual extraction of placenta, no incisions. Feels she is having way more leaking than common. Not much leakage in AM. As day progresses she states the urinary leakage gets worse and by afternoon, pads are full after 1-2 hrs wear. She reports no feeling of a sensation to urinate and has no feeling of falling out . Activities like walking going up/down stairs increases her leakage significantly. Night time she wakes to feed baby and urinate although she doesn't have the urge to urinate. She uses an online exercise program developed by a PT (Expecting and Impowered program) 3x/week to build cardio post . Consciously she uses the bathroom every 1-2 hrs. Pt is also concerned of her Diastasis Rectus and preports she can fit 2 fingers (depth of fingers, not width) between her rectus muscles. Prior Treatments and Tests None. Symptoms of urgency before . During only incontinent with sneezing. Pt reports having an IUD placed recently. Future Testing and Treatments Planned None Treatment Goals Patient/Caregiver Goals Pt goal with therapy is to regain PF strength to eliminate leakage. Prior Functional Status Baseline Function- ADL's Independent Baseline Function- Mobility Independent Baseline Function- Other Urgency leakage, running to bathroom. Current Functional Impairments (Reported) Functional Limitations- ADL's Leakage with with sneezing, coughing, laughing, stairs up/ down, walking carrying baby, leaking prior to going to bathroom. Functional Limitations- Mobility/Gait Urinary leakage with gait. Functional Limitations- Work/School Worked in [employer] , currently unemployed but hopes to return to the workforce. Functional Limitations- Recreation/ Exercises 3-4x/week, Hobbies resistance type exercises with hand weights, Kegels daily, walking 2-3x/week for 30 minutes on own or with front holding baby carrier. Personal Factors Other Personal Factors That May Effect Pt spouse is , Therapy/Recovery sometimes travels. PT-OP-C Subjective Start: 04/09/20 17:59 Freq: Status: Active Protocol: Document 07/30/20 08:16 LRN (Rec: 07/30/20 09:02 LRN [id number]) OP-PT Subjective Patient Comments Patient Comments Leaking slightly better. Did long walk and was first time went on long walk without leaking through pants. Starting to experience soreness in lateral trunk. Hasn't stretched PF lately, plans on going back 3x/week. PT-OP-I Pelvic Floor Start: 04/09/20 17:59 Freq: Status: Active Protocol: Document 04/12/20 12:23 LRN (Rec: 04/12/20 13:49 LRN [id number]) Pelvic Floor Assessment Urine Other Urinary Symptoms Tender external R Labia majora . Leakage Size Medium Leakage Cause Cough,Exercise,Lifting,Sneeze Leaks Per Day Constant Voiding Frequency 8 Nocturia 2 Pads Used In 24 Hours 6 Urine Pad Type Depends Bowel Bowel Symptoms Uncontrolled Flatulence Other Bowel Symptoms Denies constipation. Bowel Movement Frequency 1-2 [place] Stool Chart Type 1-7 3 [place] Stool Chart Comments Occasionally type 4 Prolapse Cystocele Grade 2 Rectocele Grade 1 Perineal Descent Resting Present Bearing Present Contraction Ability Manual Muscle Testing Left 1 Manual Muscle Testing Right 1 Manual Muscle Testing Anterior 0 Manual Muscle Testing Posterior 3 Muscle Endurance (Seconds) 10 Number of Quick Contractions In 10 0 Seconds Comments Pelvic Floor Comments Visual inspection: -Can see a anal wink & mildly clitoral nod. -Vaginal gapping. -Red Perineum PALPATION: LONG HOLD:1 finger palpation internally can only feel contraction of posterior floor . QUICK FLICS: Lift only felt on L lateral wall. PT-OP-J Posture/Palpation/Skin Start: 04/09/20 17:59 Freq: Status: Active Protocol: Document 07/30/20 08:16 LRN (Rec: 07/30/20 09:02 LRN [id number]) Palpation Assessment Location Diastasis Rectus Palpation Location DR Palpation Details Umbilicus: 3 above edges felt 1.5 finger widths (very shallow) 2 above 1.5 finger widths ( shallow) 1 above 1.5 finger widths, ( shallow) 1 below 1.5 finger widths ( shallow) 2 below closed 3 below closed PT-OP-K Range of Motion Start: 04/09/20 17:59 Freq: Status: Active Protocol: Document 04/12/20 12:23 LRN (Rec: 04/12/20 13:49 LRN [id number]) Lumbar Spine Range of Motion Lumbar Spine Active Degrees Testing Position Standing Flexion 45 Extension 15 Rotation Left 45 Rotation Right 45 Lateral Flexion Left 34 Lateral Flexion Right 37 Hip Goniometric Range of Motion Hip Right Passive Testing Position Supine Straight Leg Raise 80 Internal Rotation 38 External Rotation 65 Left Passive Testing Position Supine Straight Leg Raise 90 Internal Rotation 40 External Rotation 65 PT-OP-M Strength Start: 04/09/20 17:59 Freq: Status: Active Protocol: Document 04/12/20 12:23 LRN (Rec: 04/12/20 13:49 LRN [id number]) Trunk Strength Trunk Manual Muscle Testing Testing Position Supine Rotation Left 4 Good Rotation Right 4 Good Core Stabilization Loss of stabilization with MMT of LE's. Hip Strength Hip Manual Muscle Testing Right Comments Generally 5/5. Left Comments Generally 5/5. PT-OP-Q Treatments Start: 04/09/20 17:59 Freq: Status: Active Protocol: Document 07/30/20 08:16 LRN (Rec: 07/30/20 09:02 LRN [id number]) Therapeutic Exercises Supine Exercises TA Heel slides Supine Exercise Name TA Heel slides without heel touching Side bilateral Comments Focus on no abdominal doming and neutral pelvic positioning . PF Bridge w/Marching Supine Exercise Name PF Bridge w/Marching Side left Comments Focus on neutral pelvic positioning (preventing pelvic L rotation) Pelvic R rotation Supine Exercise Name Isometric R hands/sonal knees push Reps/Minutes 8' Comments Training TA training Supine Exercise Name TA, awareness of superior vs lower trunk Reps/Minutes 3' LE Roll in/out w/PF/Deep Breathing Supine Exercise Name Leg on TBall legs in 85 deg's flex. Self-Care/Home Management Treatment Education Patient Education Home Exercise Program Other Education Discussed options of care with leakage during childcare. Activities Self-Care/Home Management Activities I/S: Heel slides w/o touching heels, bridge for initial leg lift on L side, Hands knee push w/R arm only, Roll in/ out with legs on ball. PT-OP-T Assessment and Plan Start: 04/09/20 17:59 Freq: Status: Active Protocol: Document 07/30/20 08:16 LRN (Rec: 07/30/20 09:02 LRN [id number]) Physical Therapy Assessment Goals Four Impairment Increased frequency of voiding (day 8x or every 1-2hrs, nighttime 2x). Short Term Goal (STG) Decrease daytime voiding to 5- 7 times. NOTE: Baseline is every 2 hours. (07/30/20: Voiding every 2 hours but leakage is reportedly significantly less. Changing absorbent underwear 3x/day, but with regular underwear pt feels she would be changiing more often. Leaks after strenuous activity or exercise). STG Duration 08/11/20 Door Frame Builder Goal (LTG) Decrease nighttime voiding to 1x/night. (07/30/20: Weaning DA of night feeding; therefore during night sometimes 1x/night without leaking, unless picking up or placing DA in crib). LTG Duration 09/10/20 (07/30/20: Progressing) Three Impairment Trunk strength Short Term Goal (STG) Pt will be educated in proper trunk care (TA/protecting DR), TA strengthening, and pt will be able to lift her legs against gravity with good trunk stability. (07/30/20: Good trunk stability with weakness during L leg lifts, pt holds TA during leg lifts without doming except for at initial L leg lift or end range of lowering) STG Duration 08/11/20 (07/30/20: Mostly MET GOAL) Longterm Goal (LTG) Pt will be able to perform resisted hip flex, ext, AB with good trunk stability. LTG Duration 09/10/20 Two Impairment PF Strength Short Term Goal (STG) Improve PF strength to 2/5 around the PF clock, with improved level of continence with walking and stair ambulation (Initial: Long Hold 10 secs, Quick Flicks 0 reps - lacks superficial PF ms contraction; PF strength is 1/5 left & right lateral beltran; 0/5 anterior, 3/5 posterior). STG Duration 08/11/20 Longterm Goal (LTG) Improve PF strength to 3/5 with decreased complaints of urinary stress incontinent symptoms and pt will become aware of need to urinate and to remain continent with stair ambulation and in the presence of a strong cough, sneeze, laughing. LTG Duration 10/10/20 One Impairment Lacks appropriate self care HEP Short Term Goal (STG) Educate pt in appropriate self care exercise using an online exercise program developed by a PT (Expecting and Impowered program), 3x/week to build cardio post . (07/22/20: Reviewed pt's home ex's with modifications as needed to decrease unnecessary strain on PF). STG Duration 08/11/20 (07/22/20: MET GOAL) Door Frame Builder Goal (LTG) Pt will be independent in a self care HEP for PF/core strengthening. (HANDOUTS Issued: *Genital hygiene, *vulvar care, * Bladder Retraining. HEP Issued/Reviewed: *Deep Breathing. STRETCHES: *Fig 4, * Piriformis. INSTRUCTIONS FOR: Bridge w/PF/ BKFO, Around the PF clock) LTG Duration 10/10/20 (07/30/20: Progressing) Progress Towards Goals Progress Towards Goals Progressing Toward Goals Progress Comments DR closing, see Palpation section above. Assessment Summary Assessment Pt not tracking voids during the day and she reports pre- she voided every 2 hours; therefore pt will need to track voids for progress tracking. Assessing DR noted with head under 2 pillows, DR is accentruated. Appears DR is closing below umbilicus and becoming more shallow above the umbilicus. No doming of abdomen with head lift and very mildly with initial range of leg lift with doming more pronounced with L LE movement. Physical Therapy Plan Frequency and Duration Frequency of Treatment 1x/Week Plan of Care Start Date 07/12/20 Plan of Care End Date 10/10/20 Next Visit Focus/Plan Next Note Type Treatment Note Next Visit Plan Re-check progress towards goals (daytime & nighttime voiding times/day, assess PF strength). Continue Post- pelvic/ core stabilization. Frequency ever 1.5-2 weeks for next 4 weeks for pt to work on achieving automatic TA contraction. Progress LE roll in/out PF/ core strengthening program ( check to see if pt able to perform heel lift at 90 deg hip flex) and LE roll in/out with resistance and proper breathing (legs on ball). STM for stretch to lateral beltran of PF, perineum, and abdomen (rotators and urachus) to help with DR closure. Review previously issued exercises: Hip stretches (ER> IR) add PSLR on right & bridging/BKFO, PF Clock. Sacral Mobilization to correct tilt. Add T-ball PF strengthening ( Pelvic clocks and discuss progressive use of T-Ball for vertical movements).
--- NOTE | 2020-08-09 12:29 | PT.OTN ---
Current Diagnoses Stiffness of unspecified hip, not elsewhere classified (08/09/20) Muscle weakness (generalized) (08/09/20) Stress incontinence (female) (male) (08/09/20) Abnormal posture (08/09/20) Unspecified urinary incontinence (08/09/20) Physical Therapy Treatment Note PT-OP-A Visit Information Start: 04/09/20 17:59 Freq: Status: Active Protocol: Document 08/09/20 11:15 LRN (Rec: 08/09/20 12:28 LRN [id number]) Out-Patient Physical Therapy Visit Information Visit Information Visit Type Treatment Note Visit Start Time 11:15 Visit Stop Time 12:00 Total Visit Minutes 45 Visit Number 9 Evaluation Information Evaluation Date 04/12/20 Precautions Precautions IUD in place. Post : s/p on 02/16. Manual extraction of placenta with no incisions. PT-OP-B Current Condition Start: 04/09/20 17:59 Freq: Status: Active Protocol: Document 04/12/20 12:23 LRN (Rec: 04/12/20 13:49 LRN [id number]) Current Condition History of Current Condition Onset Date 02/17/20 Current Complaints Significant urinary leakage History of Current Condition 8 weeks ago, vaginal with minor superficial tear. Manual extraction of placenta, no incisions. Feels she is having way more leaking than common. Not much leakage in AM. As day progresses she states the urinary leakage gets worse and by afternoon, pads are full after 1-2 hrs wear. She reports no feeling of a sensation to urinate and has no feeling of falling out . Activities like walking going up/down stairs increases her leakage significantly. Night time she wakes to feed baby and urinate although she doesn't have the urge to urinate. She uses an online exercise program developed by a PT (Expecting and Impowered program) 3x/week to build cardio post . Consciously she uses the bathroom every 1-2 hrs. Pt is also concerned of her Diastasis Rectus and preports she can fit 2 fingers (depth of fingers, not width) between her rectus muscles. Prior Treatments and Tests None. Symptoms of urgency before . During only incontinent with sneezing. Pt reports having an IUD placed recently. Future Testing and Treatments Planned None Treatment Goals Patient/Caregiver Goals Pt goal with therapy is to regain PF strength to eliminate leakage. Prior Functional Status Baseline Function- ADL's Independent Baseline Function- Mobility Independent Baseline Function- Other Urgency leakage, running to bathroom. Current Functional Impairments (Reported) Functional Limitations- ADL's Leakage with with sneezing, coughing, laughing, stairs up/ down, walking carrying baby, leaking prior to going to bathroom. Functional Limitations- Mobility/Gait Urinary leakage with gait. Functional Limitations- Work/School Worked in [employer] , currently unemployed but hopes to return to the workforce. Functional Limitations- Recreation/ Exercises 3-4x/week, Hobbies resistance type exercises with hand weights, Kegels daily, walking 2-3x/week for 30 minutes on own or with front holding baby carrier. Personal Factors Other Personal Factors That May Effect Pt spouse is , Therapy/Recovery sometimes travels. PT-OP-C Subjective Start: 04/09/20 17:59 Freq: Status: Active Protocol: Document 08/09/20 11:15 LRN (Rec: 08/09/20 12:28 LRN [id number]) OP-PT Subjective Patient Comments Patient Comments Didn't get to work out as much and noticed she didn't leak as much. Has decided to decrease in intensity of exercise. Tacking voiding every 2 hours in AM, in afternoon, every 2-3 hrs (due to caffeine probably), sleeps through the night. PT-OP-I Pelvic Floor Start: 04/09/20 17:59 Freq: Status: Active Protocol: Document 04/12/20 12:23 LRN (Rec: 04/12/20 13:49 LRN [id number]) Pelvic Floor Assessment Urine Other Urinary Symptoms Tender external R Labia majora . Leakage Size Medium Leakage Cause Cough,Exercise,Lifting,Sneeze Leaks Per Day Constant Voiding Frequency 8 Nocturia 2 Pads Used In 24 Hours 6 Urine Pad Type Depends Bowel Bowel Symptoms Uncontrolled Flatulence Other Bowel Symptoms Denies constipation. Bowel Movement Frequency 1-2 [place] Stool Chart Type 1-7 3 [place] Stool Chart Comments Occasionally type 4 Prolapse Cystocele Grade 2 Rectocele Grade 1 Perineal Descent Resting Present Bearing Present Contraction Ability Manual Muscle Testing Left 1 Manual Muscle Testing Right 1 Manual Muscle Testing Anterior 0 Manual Muscle Testing Posterior 3 Muscle Endurance (Seconds) 10 Number of Quick Contractions In 10 0 Seconds Comments Pelvic Floor Comments Visual inspection: -Can see a anal wink & mildly clitoral nod. -Vaginal gapping. -Red Perineum PALPATION: LONG HOLD:1 finger palpation internally can only feel contraction of posterior floor . QUICK FLICS: Lift only felt on L lateral wall. PT-OP-J Posture/Palpation/Skin Start: 04/09/20 17:59 Freq: Status: Active Protocol: Document 08/09/20 11:15 LRN (Rec: 08/09/20 12:28 LRN [id number]) Palpation Assessment Location Diastasis Rectus Palpation Location DR Palpation Details Umbilicus: 3 above edges felt 1.5 finger widths (very shallow) 2 above 1.5 finger widths ( shallow) 1 above 1.5 finger widths, ( very shallow) 1 below 1.5 finger widths ( very shallow) 2 below closed 3 below closed PT-OP-K Range of Motion Start: 04/09/20 17:59 Freq: Status: Active Protocol: Document 04/12/20 12:23 LRN (Rec: 04/12/20 13:49 LRN [id number]) Lumbar Spine Range of Motion Lumbar Spine Active Degrees Testing Position Standing Flexion 45 Extension 15 Rotation Left 45 Rotation Right 45 Lateral Flexion Left 34 Lateral Flexion Right 37 Hip Goniometric Range of Motion Hip Right Passive Testing Position Supine Straight Leg Raise 80 Internal Rotation 38 External Rotation 65 Left Passive Testing Position Supine Straight Leg Raise 90 Internal Rotation 40 External Rotation 65 PT-OP-M Strength Start: 04/09/20 17:59 Freq: Status: Active Protocol: Document 04/12/20 12:23 LRN (Rec: 04/12/20 13:49 LRN [id number]) Trunk Strength Trunk Manual Muscle Testing Testing Position Supine Rotation Left 4 Good Rotation Right 4 Good Core Stabilization Loss of stabilization with MMT of LE's. Hip Strength Hip Manual Muscle Testing Right Comments Generally 5/5. Left Comments Generally 5/5. PT-OP-Q Treatments Start: 04/09/20 17:59 Freq: Status: Active Protocol: Document 08/09/20 11:15 LRN (Rec: 08/09/20 12:28 LRN [id number]) Therapeutic Exercises Supine Exercises PF contractioins Supine Exercise Name PF contractions: Quick Flicks and Long Hold Reps/Minutes 10' Comments MMT Sidelying Exercises PF contraction Sidelying Exercise Name PF contraction in isoloation of TA Side bilateral Reps/Minutes 8' Hip AD/TA Sidelying Exercise Name Hip AD/w TA Side bilateral Reps/Minutes 8' Manual Therapy Treatment Soft Tissue Mobilization Abdomen Body Location Abdomen (urachus) & to correct R rotated core. Mobilization Type Myofascial Release Intensity/Depth Superficial Body Position Supine PF Body Location Lateral Beltran of PF Mobilization Type Other Intensity/Depth Superficial Body Position Supine Comments STretching to lateral beltran. Self-Care/Home Management Treatment Education Patient Education Home Exercise Program Other Education Use of model to educate pt in superficial PF muscles of weakness. Pt appears to have a good understanding. Activities Self-Care/Home Management Activities I/S pt in HEP: PF Lateral Wall Quick Flick strengthening with Hip AD strengthening with and without TA. Pt to work on isolation of PF in all positions. PT-OP-T Assessment and Plan Start: 04/09/20 17:59 Freq: Status: Active Protocol: Document 08/09/20 11:15 LRN (Rec: 08/09/20 12:28 LRN [id number]) Physical Therapy Assessment Goals Four Impairment Increased frequency of voiding (day 8x or every 1-2hrs, nighttime 2x). Short Term Goal (STG) Decrease daytime voiding to 5- 7 times. NOTE: Baseline is every 2 hours. (08/09/20: Voiding every 2 hours, leakage is reportedly significantly less with a decrease in intensity during her workouts. Changing absorbent underwear ~1x/day. Leaks with strenuous activity or exercise). STG Duration 08/11/20 (08/09/20: MET GOAL) Custodial Goal (LTG) Decrease nighttime voiding to 1x/night. (08/09/20: Pt sleeping through the night). LTG Duration 09/10/20 (08/09/20: MET GOAL) Three Impairment Trunk strength Short Term Goal (STG) Pt will be educated in proper trunk care (TA/protecting DR), TA strengthening, and pt will be able to lift her legs against gravity with good trunk stability. (07/30/20: Good trunk stability with weakness during L leg lifts, pt holds TA during leg lifts without doming except for at initial L leg lift or end range of lowering) STG Duration 08/11/20 (07/30/20: Mostly MET GOAL) Custodial Goal (LTG) Pt will be able to perform resisted hip flex, ext, AB with good trunk stability. LTG Duration 09/10/20 Two Impairment PF Strength Short Term Goal (STG) Improve PF strength to 2/5 around the PF clock, with improved level of continence with walking and stair ambulation (Initial: Long Hold 10 secs, Quick Flicks 0 reps - lacks superficial PF ms contraction; PF strength is 2/5 left & right lateral beltran; 2/5, posterior 3/5). STG Duration 08/11/20 (Progressing: PF strength is 2/5 except posterior 3/5) Manager Case Goal (LTG) Improve PF strength to 3/5 with decreased complaints of urinary stress incontinent symptoms and pt will become aware of need to urinate and to remain continent with stair ambulation and in the presence of a strong cough, sneeze, laughing. LTG Duration 10/10/20 One Impairment Lacks appropriate self care HEP Short Term Goal (STG) Educate pt in appropriate self care exercise using an online exercise program developed by a PT (Expecting and Impowered program), 3x/week to build cardio post . (07/22/20: Reviewed pt's home ex's with modifications as needed to decrease unnecessary strain on PF). STG Duration 08/11/20 (07/22/20: MET GOAL) Custodial Goal (LTG) Pt will be independent in a self care HEP for PF/core strengthening. (HANDOUTS Issued: *Genital hygiene, *vulvar care, * Bladder Retraining. HEP Issued/Reviewed: *Deep Breathing. STRETCHES: *Fig 4, * Piriformis. INSTRUCTIONS FOR: Bridge w/PF/ BKFO, Around the PF clock) LTG Duration 10/10/20 (07/30/20: Progressing) Progress Towards Goals Progress Comments Goal #4 (STG & LTG MET) Pre- voiding in AM every 2 hours and no nighttime voiding. DR is very shallow at 1.5 finger widths, mostly above umbilicus. Assessment Summary Assessment Pt PF is weak with Superficial Quick Flick muscles. Lateral beltran strength L is less than R and anterior is improving. Pt needs to focus on Quick contractions. She is able to hold a 10 sec PF contraction with good coordination. Pt PF tissued are red and irritated from use of pads. Pt now more aware of how bicycling is making for more urinary leakage and will dial back some of her cycling. PT is very shallow and closing. STM to abdomen relieved tightness to help DR closure. Physical Therapy Plan Frequency and Duration Frequency of Treatment 1x/Week Plan of Care Start Date 07/12/20 Plan of Care End Date 10/10/20 Next Visit Focus/Plan Next Note Type Treatment Note Next Visit Plan Assess for improved Superficial PF ms strength ( and for L equal to R). Assess PF strength (No doming at initial L leg lift or end range of lowering, and with resisted hip flex, ext, AB with good trunk stability - progress with goal #3). Assess for urinary leakage with walking and stairs (Goal # 2). Progress LE roll in/out PF/ core strengthening program of pelvic rotation strengthening (check to see if pt able to perform heel lift at 90 deg hip flex) and LE roll in/out with resistance and proper breathing (legs on ball). Review previously issued exercises: Hip stretches (ER> IR) add PSLR on right & bridging/BKFO, PF Clock. Sacral Mobilization to correct tilt as needed. Add T-ball PF strengthening ( Pelvic clocks and discuss progressive use of T-Ball for vertical movements when leakage stops). Continue Post- pelvic/ core stabilization. Frequency ever 1.5-2 weeks for next 3 weeks for pt to work on achieving automatic TA contraction.
--- NOTE | 2020-08-20 13:09 | PT.OTN ---
Current Diagnoses Stiffness of unspecified hip, not elsewhere classified (08/20/20) Muscle weakness (generalized) (08/20/20) Stress incontinence (female) (male) (08/20/20) Abnormal posture (08/20/20) Unspecified urinary incontinence (08/20/20) Physical Therapy Treatment Note PT-OP-A Visit Information Start: 04/09/20 17:59 Freq: Status: Active Protocol: Document 08/20/20 09:09 LRN (Rec: 08/20/20 09:51 LRN [id number]) Out-Patient Physical Therapy Visit Information Visit Information Visit Type Treatment Note Visit Start Time 09:09 Visit Stop Time 09:50 Total Visit Minutes 41 Visit Number 10 Evaluation Information Evaluation Date 04/12/20 Precautions Precautions IUD in place. Post : s/p on 02/16. Manual extraction of placenta with no incisions. PT-OP-B Current Condition Start: 04/09/20 17:59 Freq: Status: Active Protocol: Document 04/12/20 12:23 LRN (Rec: 04/12/20 13:49 LRN [id number]) Current Condition History of Current Condition Onset Date 02/17/20 Current Complaints Significant urinary leakage History of Current Condition 8 weeks ago, vaginal with minor superficial tear. Manual extraction of placenta, no incisions. Feels she is having way more leaking than common. Not much leakage in AM. As day progresses she states the urinary leakage gets worse and by afternoon, pads are full after 1-2 hrs wear. She reports no feeling of a sensation to urinate and has no feeling of falling out . Activities like walking going up/down stairs increases her leakage significantly. Night time she wakes to feed baby and urinate although she doesn't have the urge to urinate. She uses an online exercise program developed by a PT (Expecting and Impowered program) 3x/week to build cardio post . Consciously she uses the bathroom every 1-2 hrs. Pt is also concerned of her Diastasis Rectus and preports she can fit 2 fingers (depth of fingers, not width) between her rectus muscles. Prior Treatments and Tests None. Symptoms of urgency before . During only incontinent with sneezing. Pt reports having an IUD placed recently. Future Testing and Treatments Planned None Treatment Goals Patient/Caregiver Goals Pt goal with therapy is to regain PF strength to eliminate leakage. Prior Functional Status Baseline Function- ADL's Independent Baseline Function- Mobility Independent Baseline Function- Other Urgency leakage, running to bathroom. Current Functional Impairments (Reported) Functional Limitations- ADL's Leakage with with sneezing, coughing, laughing, stairs up/ down, walking carrying baby, leaking prior to going to bathroom. Functional Limitations- Mobility/Gait Urinary leakage with gait. Functional Limitations- Work/School Worked in [employer] , currently unemployed but hopes to return to the workforce. Functional Limitations- Recreation/ Exercises 3-4x/week, Hobbies resistance type exercises with hand weights, Kegels daily, walking 2-3x/week for 30 minutes on own or with front holding baby carrier. Personal Factors Other Personal Factors That May Effect Pt spouse is , Therapy/Recovery sometimes travels. PT-OP-C Subjective Start: 04/09/20 17:59 Freq: Status: Active Protocol: Document 08/20/20 09:09 LRN (Rec: 08/20/20 09:51 LRN [id number]) OP-PT Subjective Patient Comments Patient Comments Not a lot of change, the same. Wanted to stretch more, but only did 2-3 times. Upped Kegels Quick Flicks vs Long holds. Doing 3-5 sets of Quick Contractions 3-5 sec hold 5x, 3x/day. Now doing 2x /day long contractions and 10 quick flicks each time.. Recommended more times Quick Flicks throughout the day. Sometimes leaks with stairs. Yesterday she thinks she was able to cough without leakage. Leaking with walking. PT-OP-I Pelvic Floor Start: 04/09/20 17:59 Freq: Status: Active Protocol: Document 04/12/20 12:23 LRN (Rec: 04/12/20 13:49 LRN [id number]) Pelvic Floor Assessment Urine Other Urinary Symptoms Tender external R Labia majora . Leakage Size Medium Leakage Cause Cough,Exercise,Lifting,Sneeze Leaks Per Day Constant Voiding Frequency 8 Nocturia 2 Pads Used In 24 Hours 6 Urine Pad Type Depends Bowel Bowel Symptoms Uncontrolled Flatulence Other Bowel Symptoms Denies constipation. Bowel Movement Frequency 1-2 [place] Stool Chart Type 1-7 3 [place] Stool Chart Comments Occasionally type 4 Prolapse Cystocele Grade 2 Rectocele Grade 1 Perineal Descent Resting Present Bearing Present Contraction Ability Manual Muscle Testing Left 1 Manual Muscle Testing Right 1 Manual Muscle Testing Anterior 0 Manual Muscle Testing Posterior 3 Muscle Endurance (Seconds) 10 Number of Quick Contractions In 10 0 Seconds Comments Pelvic Floor Comments Visual inspection: -Can see a anal wink & mildly clitoral nod. -Vaginal gapping. -Red Perineum PALPATION: LONG HOLD:1 finger palpation internally can only feel contraction of posterior floor . QUICK FLICS: Lift only felt on L lateral wall. PT-OP-J Posture/Palpation/Skin Start: 04/09/20 17:59 Freq: Status: Active Protocol: Document 08/20/20 09:09 LRN (Rec: 08/20/20 09:51 LRN [id number]) Palpation Assessment Location Diastasis Rectus Palpation Location DR Palpation Details Umbilicus: 3 above edges felt 1.5 finger widths (very shallow) 2 above 1.5 finger widths 1 above 1.5 finger widths, ( shallow) 1 below 1.5 finger widths ( very shallow) 2 below closed 3 below closed PT-OP-K Range of Motion Start: 04/09/20 17:59 Freq: Status: Active Protocol: Document 04/12/20 12:23 LRN (Rec: 04/12/20 13:49 LRN [id number]) Lumbar Spine Range of Motion Lumbar Spine Active Degrees Testing Position Standing Flexion 45 Extension 15 Rotation Left 45 Rotation Right 45 Lateral Flexion Left 34 Lateral Flexion Right 37 Hip Goniometric Range of Motion Hip Right Passive Testing Position Supine Straight Leg Raise 80 Internal Rotation 38 External Rotation 65 Left Passive Testing Position Supine Straight Leg Raise 90 Internal Rotation 40 External Rotation 65 PT-OP-M Strength Start: 04/09/20 17:59 Freq: Status: Active Protocol: Document 04/12/20 12:23 LRN (Rec: 04/12/20 13:49 LRN [id number]) Trunk Strength Trunk Manual Muscle Testing Testing Position Supine Rotation Left 4 Good Rotation Right 4 Good Core Stabilization Loss of stabilization with MMT of LE's. Hip Strength Hip Manual Muscle Testing Right Comments Generally 5/5. Left Comments Generally 5/5. PT-OP-Q Treatments Start: 04/09/20 17:59 Freq: Status: Active Protocol: Document 08/20/20 09:09 LRN (Rec: 08/20/20 09:51 LRN [id number]) Therapeutic Exercises Supine Exercises PF contractioins Supine Exercise Name PF contractions: Quick Flicks and Long Hold Reps/Minutes 6' Comments Phys self assessment, hands TA , Perineum & both Pelvic R rotation Supine Exercise Name Isometric R hands/sonal knees push Reps/Minutes 8' Comments 15 hold x 6 Sidelying Exercises Side Bent Knee Plank Sidelying Exercise Name PF/Knee Side Plank Side bilateral Reps/Minutes 10 x 3 each Comments Greater sway with hold on R side today. Hip AD/TA Sidelying Exercise Name Quick Flicks with Hip AD/wTA Side bilateral Reps/Minutes 8' Comments R>L reps Standing Exercises PF/Stairs Standing Exercise Name Stairs x 2 w/PF contraction, f /b Trunk rot Equipment Used Stairs, Lev 2 TBand Reps/Minutes 8' Self-Care/Home Management Treatment Education Patient Education Home Exercise Program Activities Self-Care/Home Management Activities Discussed home program with review of her exercises and reps/sets. Pt to perform Quick Flicks before her long holds and to increase her Quick Flicks times through the day. Pt to resume her prior HEP of long holds. I/S pt in Side Planks with knees flexed. Pt held 6-10 secs. PT-OP-T Assessment and Plan Start: 04/09/20 17:59 Freq: Status: Active Protocol: Document 08/20/20 09:09 LRN (Rec: 08/20/20 09:51 LRN [id number]) Physical Therapy Assessment Goals Three Impairment Trunk strength Short Term Goal (STG) Pt will be educated in proper trunk care (TA/protecting DR), TA strengthening, and pt will be able to lift her legs against gravity with good trunk stability. (08/20/20: Good trunk stability with weakness during L leg lifts, pt holds TA during leg lifts without doming except for at initial L leg lift or end range of lowering) STG Duration 08/11/20 (08/20/20: Mostly MET GOAL) Industrial Maintenance Repairer Helper Goal (LTG) Pt will be able to perform resisted hip flex, ext, AB with good trunk stability. LTG Duration 09/10/20 Two Impairment PF Strength Short Term Goal (STG) Improve PF strength to 2/5 around the PF clock, with improved level of continence with walking and stair ambulation (Initial: Long Hold 10 secs, Quick Flicks 0 reps - lacks superficial PF ms contraction; PF strength is 2/5 left & right lateral beltran; 2/5, posterior 3/5). STG Duration 08/11/20 (Progressing: PF strength is 2/5 except posterior 3/5) Usp Goal (LTG) Improve PF strength to 3/5 with decreased complaints of urinary stress incontinent symptoms and pt will become aware of need to urinate and to remain continent with stair ambulation and in the presence of a strong cough, sneeze, laughing. (08/20/20: Pt able to PF contract before coughing, preventing urinary leakage). LTG Duration 10/10/20 (08/20/20: Improving ) One Impairment Lacks appropriate self care HEP Short Term Goal (STG) Educate pt in appropriate self care exercise using an online exercise program developed by a PT (Expecting and Impowered program), 3x/week to build cardio post . (07/22/20: Reviewed pt's home ex's with modifications as needed to decrease unnecessary strain on PF). STG Duration 08/11/20 (07/22/20: MET GOAL) Usp Goal (LTG) Pt will be independent in a self care HEP for PF/core strengthening. (HANDOUTS Issued: *Genital hygiene, *vulvar care, * Bladder Retraining. HEP Issued/Reviewed: *Deep Breathing. STRETCHES: *Fig 4, * Piriformis. INSTRUCTIONS FOR: Bridge w/PF/ BKFO, Around the PF clock), * Side Planks LTG Duration 10/10/20 (08/20/20: Progressing) Progress Towards Goals Progress Comments Pt not leaking all the time with stairs, only when holding baby and laundry at same time . Pt not leaking with coughing doing PF contraction prior to cough. Progressed HEP with added side planks. Assessment Summary Assessment Pt not doing HEP quite correct with PF contraction Long holds before Quick Flicks. R trunk rot shows weakness today vs Left. Quick Flicks possibly being done when already fatigued (performed after long hold exercises); therefore held PF assessment until next visit due to possibly lack of strength improvement. Pt appears to have increased sway with R side planks compared to L side planks, although history has been weakness of L pelvic rotators. Urinary leakage onset on stairs is less, primarily when stressed. Leakage with walking continues . Physical Therapy Plan Frequency and Duration Frequency of Treatment 1x/Week Plan of Care Start Date 07/12/20 Plan of Care End Date 10/10/20 Next Visit Focus/Plan Next Note Type Treatment Note Next Visit Plan Assess for sacral tilt & assess for improved Superficial PF ms (quick flick ) strength (and for L equal to R). Assess PF strength (No doming at initial L leg lift or end range of lowering, and with resisted hip flex, ext, AB with good trunk stability - progress with goal #3). Add PF contractions with walking and review with stairs (Goal # 2). Progress LE roll in/out PF/ core strengthening program of pelvic rotation strengthening (check to see if pt able to perform heel lift at 90 deg hip flex) and LE roll in/out with resistance and proper breathing (legs on ball). Review previously issued exercises: Hip stretches (ER> IR) add PSLR on right & bridging/BKFO, PF Clock. Sacral Mobilization to correct tilt as needed. Add T-ball PF strengthening, Pelvic clock. Discuss progressive use of T-Ball for vertical movements when leakage stops). Continue Post- pelvic/ core stabilization. Frequency ever 1.5-2 weeks for next 2 weeks for pt to work on achieving automatic TA contraction.
--- NOTE | 2020-09-17 17:16 | PT.OTN ---
Current Diagnoses Stiffness of unspecified hip, not elsewhere classified (09/17/20) Muscle weakness (generalized) (09/17/20) Stress incontinence (female) (male) (09/17/20) Abnormal posture (09/17/20) Unspecified urinary incontinence (09/17/20) Physical Therapy Treatment Note PT-OP-A Visit Information Start: 04/09/20 17:59 Freq: Status: Active Protocol: Document 09/17/20 14:22 LRN (Rec: 09/17/20 15:08 LRN [id number]) Out-Patient Physical Therapy Visit Information Visit Information Visit Type Progress Note Visit Start Time 14:24 Visit Stop Time 15:03 Total Visit Minutes 39 Visit Number 11 Evaluation Information Evaluation Date 04/12/20 Precautions Precautions IUD in place. Post : s/p on 02/16. Manual extraction of placenta with no incisions. PT-OP-B Current Condition Start: 04/09/20 17:59 Freq: Status: Active Protocol: Document 04/12/20 12:23 LRN (Rec: 04/12/20 13:49 LRN [id number]) Current Condition History of Current Condition Onset Date 02/17/20 Current Complaints Significant urinary leakage History of Current Condition 8 weeks ago, vaginal with minor superficial tear. Manual extraction of placenta, no incisions. Feels she is having way more leaking than common. Not much leakage in AM. As day progresses she states the urinary leakage gets worse and by afternoon, pads are full after 1-2 hrs wear. She reports no feeling of a sensation to urinate and has no feeling of falling out . Activities like walking going up/down stairs increases her leakage significantly. Night time she wakes to feed baby and urinate although she doesn't have the urge to urinate. She uses an online exercise program developed by a PT (Expecting and Impow[employer] program) 3x/week to build cardio post . Consciously she uses the bathroom every 1-2 hrs. Pt is also concerned of her Diastasis Rectus and preports she can fit 2 fingers (depth of fingers, not width) between her rectus muscles. Prior Treatments and Tests None. Symptoms of urgency before . During only incontinent with sneezing. Pt reports having an IUD placed recently. Future Testing and Treatments Planned None Treatment Goals Patient/Caregiver Goals Pt goal with therapy is to regain PF strength to eliminate leakage. Prior Functional Status Baseline Function- ADL's Independent Baseline Function- Mobility Independent Baseline Function- Other Urgency leakage, running to bathroom. Current Functional Impairments (Reported) Functional Limitations- ADL's Leakage with with sneezing, coughing, laughing, stairs up/ down, walking carrying baby, leaking prior to going to bathroom. Functional Limitations- Mobility/Gait Urinary leakage with gait. Functional Limitations- Work/School Worked in [employer] , currently unemployed but hopes to return to the workforce. Functional Limitations- Recreation/ Exercises 3-4x/week, Hobbies resistance type exercises with hand weights, Kegels daily, walking 2-3x/week for 30 minutes on own or with front holding baby carrier. Personal Factors Other Personal Factors That May Effect Pt spouse is , Therapy/Recovery sometimes travels. PT-OP-C Subjective Start: 04/09/20 17:59 Freq: Status: Active Protocol: Document 09/17/20 14:22 LRN (Rec: 09/17/20 15:08 LRN [id number]) OP-PT Subjective Patient Comments Patient Comments Travelled to see parents, this week started a new job from home full-time. Sitting a lot more. Sitting not leaking. Walking the [facility] robles felt leaking. Thinks she may be better. Wearing absorbent underwear that allows for 8 tsps of urine. Plans to track on voiding. PT-OP-I Pelvic Floor Start: 04/09/20 17:59 Freq: Status: Active Protocol: Document 04/12/20 12:23 LRN (Rec: 04/12/20 13:49 LRN [id number]) Pelvic Floor Assessment Urine Other Urinary Symptoms Tender external R Labia majora . Leakage Size Medium Leakage Cause Cough,Exercise,Lifting,Sneeze Leaks Per Day Constant Voiding Frequency 8 Nocturia 2 Pads Used In 24 Hours 6 Urine Pad Type Depends Bowel Bowel Symptoms Uncontrolled Flatulence Other Bowel Symptoms Denies constipation. Bowel Movement Frequency 1-2 [place]ord Stool Chart Type 1-7 3 [place] Stool Chart Comments Occasionally type 4 Prolapse Cystocele Grade 2 Rectocele Grade 1 Perineal Descent Resting Present Bearing Present Contraction Ability Manual Muscle Testing Left 1 Manual Muscle Testing Right 1 Manual Muscle Testing Anterior 0 Manual Muscle Testing Posterior 3 Muscle Endurance (Seconds) 10 Number of Quick Contractions In 10 0 Seconds Comments Pelvic Floor Comments Visual inspection: -Can see a anal wink & mildly clitoral nod. -Vaginal gapping. -Red Perineum PALPATION: LONG HOLD:1 finger palpation internally can only feel contraction of posterior floor . QUICK FLICS: Lift only felt on L lateral wall. PT-OP-J Posture/Palpation/Skin Start: 04/09/20 17:59 Freq: Status: Active Protocol: Document 08/20/20 09:09 LRN (Rec: 08/20/20 09:51 LRN [id number]) Palpation Assessment Location Diastasis Rectus Palpation Location DR Palpation Details Umbilicus: 3 above edges felt 1.5 finger widths (very shallow) 2 above 1.5 finger widths 1 above 1.5 finger widths, ( shallow) 1 below 1.5 finger widths ( very shallow) 2 below closed 3 below closed PT-OP-K Range of Motion Start: 04/09/20 17:59 Freq: Status: Active Protocol: Document 04/12/20 12:23 LRN (Rec: 04/12/20 13:49 LRN [id number]) Lumbar Spine Range of Motion Lumbar Spine Active Degrees Testing Position Standing Flexion 45 Extension 15 Rotation Left 45 Rotation Right 45 Lateral Flexion Left 34 Lateral Flexion Right 37 Hip Goniometric Range of Motion Hip Right Passive Testing Position Supine Straight Leg Raise 80 Internal Rotation 38 External Rotation 65 Left Passive Testing Position Supine Straight Leg Raise 90 Internal Rotation 40 External Rotation 65 PT-OP-M Strength Start: 04/09/20 17:59 Freq: Status: Active Protocol: Document 04/12/20 12:23 LRN (Rec: 04/12/20 13:49 LRN [id number]) Trunk Strength Trunk Manual Muscle Testing Testing Position Supine Rotation Left 4 Good Rotation Right 4 Good Core Stabilization Loss of stabilization with MMT of LE's. Hip Strength Hip Manual Muscle Testing Right Comments Generally 5/5. Left Comments Generally 5/5. PT-OP-Q Treatments Start: 04/09/20 17:59 Freq: Status: Active Protocol: Document 09/17/20 14:22 LRN (Rec: 09/17/20 15:08 LRN [id number]) Therapeutic Exercises Supine Exercises Hands/knees push Supine Exercise Name Hands/knees push: Feet down, Feet lifted Reps/Minutes 3' Comments Pt getting a little dominig in both positions; therefore held ex Leg lifts for TA control Supine Exercise Name Leg lifts controlling pelvis L rotation and doming @ umbilicus Reps/Minutes 3' Comments Extra time taken to determine TA control for progression to ex PF Bridge w/ball squeeze Supine Exercise Name PF Bridge w/ball squeeze Reps/Minutes 4' PF contractioins Supine Exercise Name PF contractions: Quick Flicks & Long Hold with resisted L hip AD Reps/Minutes 8' Comments Much cuing needed, extra time to determine best coordination for ex Pelvic R rotation Supine Exercise Name Trunk rotation (Roll in/out phase 2) Reps/Minutes 10' Comments Extra time taken for training and awareness of R rot activation Manual Therapy Treatment Soft Tissue Mobilization PF Body Location Lateral Beltran of PF & left lower lateral Mobilization Type Other Intensity/Depth Superficial Body Position Supine Comments STretching to lateral beltran and L lower lateral wall (5 of PF Clock). Self-Care/Home Management Treatment Education Other Education Educated pt in use of cotton underwear to reduce skin irritration of the PF Activities Self-Care/Home Management Activities Issued & reviewed with pt HEP: Phase 2 of LE Roll in/out: Diagonal ABdominal strengthening & reviewed LE Roll in/out with feet on wall; and Ball Bridge w/PF contraction (to strengthen 5 and 7 of PF clock), and walking holding a PF contraction. PT-OP-T Assessment and Plan Start: 04/09/20 17:59 Freq: Status: Active Protocol: Document 09/17/20 14:22 LRN (Rec: 09/17/20 15:08 LRN [id number]) Physical Therapy Assessment Rehab Potential Rehabilitation Potential Good Evaluation Complexity Number of Personal Factors/Comorbidities 1-2 Number of Body Systems Impaired 4 or More Clinical Presentation at Evaluation Evolving Impairments Impairments Activity Tolerance,Functional Activities,Posture,ROM,Soft Tissue Mobility,Strength Goals Three Impairment Trunk strength Short Term Goal (STG) Pt will be educated in proper trunk care (TA/protecting DR), TA strengthening, and pt will be able to lift her legs against gravity with good trunk stability. (08/20/20: Good trunk stability with weakness during L leg lifts, pt holds TA during leg lifts without doming except for at initial L leg lift or end range of lowering) STG Duration 08/11/20 (08/20/20: Mostly MET GOAL) Senior Information Security Architect Goal (LTG) Pt will be able to perform resisted hip flex, ext, AB with good trunk stability. (09/17/20: L Hip Flex caused trunk L rotation due to weakness) LTG Duration 09/10/20 Two Impairment PF Strength Short Term Goal (STG) Improve PF strength to 2/5 around the PF clock, with improved level of continence with walking and stair ambulation (Initial: Long Hold 10 secs, Quick Flicks 0 reps - lacks superficial PF ms contraction; PF strength is 2/5 left & right lateral beltran; 2/5, posterior 3/5). (09/17/20: Superficial PF ms contraction visible. R lateral & posterior 3/5, L lateral 2/5). STG Duration 08/11/20 (Progressing: PF strength is 3/5 except L lateral wall 2/5) Correction Goal (LTG) Improve PF strength to 3/5 with decreased complaints of urinary stress incontinent symptoms and pt will become aware of need to urinate and to remain continent with stair ambulation and in the presence of a strong cough, sneeze, laughing. (08/20/20: Pt able to PF contract before coughing, preventing urinary leakage). LTG Duration 10/10/20 (08/20/20: Improving ) One Impairment Lacks appropriate self care HEP Short Term Goal (STG) Educate pt in appropriate self care exercise using an online exercise program developed by a PT (Expecting and Impow[employer] program), 3x/week to build cardio post . (07/22/20: Reviewed pt's home ex's with modifications as needed to decrease unnecessary strain on PF). STG Duration 08/11/20 (07/22/20: MET GOAL) Correction Goal (LTG) Pt will be independent in a self care HEP for PF/core strengthening. (HANDOUTS Issued: *Genital hygiene, *vulvar care, * Bladder Retraining. HEP Issued/Reviewed: *Deep Breathing, LE Roll in/out: * feet on wall, *trunk rot. STRETCHES: *Fig 4, * Piriformis. INSTRUCTIONS FOR: Bridge w/PF/ BKFO, Around the PF clock), * Side Planks LTG Duration 10/10/20 (09/17/20: Progressing) Progress Towards Goals Progress Comments STG #2: Improving PF strength . 3/5 except L lateral wall is 2/5. LTG #1: HEP progressed. Assessment Summary Assessment Pt presents after 3 months of therapy with improved PF strength, decreased urinary leakage during the day (if sitting) and what the pt feels is less urinary leakage. She still notes leakage with walking. Today she presents with weakness of the PF at 3, 5 & 7 O'Clock. Weakness with pelvic R rotation. She has good TA control with only minimal doming at umbilicus. Her perineum appears angry red from use of padded underwear. The pt is still ; therefore extending her rehabilitation time. The pt will benefit from continued physical therapy to progress her PF and core strengthening, and to progress her back towards her prior function of a more active lifestyle. Physical Therapy Plan Frequency and Duration Frequency of Treatment 1x/Week Plan of Care Start Date 09/17/20 Plan of Care End Date 12/16/20 Therapeutic Interventions Therapeutic Interventions Home Exercise Program,Joint Mobilizations,Manual Therapy, Neuromuscular Re-education, Patient/Caregiver Education, Self-Care/Home Management,Soft Tissue Mobilization, Therapeutic Exercises Next Visit Focus/Plan Next Note Type Treatment Note Next Visit Plan *Assess for sacral tilt. *Start hip AD isometric press in 3 different postions. *Assess PF strength (No doming at initial L leg lift or end range of lowering, and with resisted hip ext, AB with good trunk stability - progress with goal #3). *Review previously issued exercises: Hip stretches (ER> IR) add PSLR on right & bridging/BKFO, PF Clock. Sacral Mobilization to correct tilt as needed. *Check on progress of PF contractions with walking and review with stairs (Goal # 2). *Review LE roll in/out PF/core strengthening program of pelvic rotation strengthening (check to see if pt able to perform heel lift at 90 deg hip flex) and LE roll in/out with resistance and proper breathing (legs on ball). *Add sitting T-ball PF strengthening-Pelvic clock. *Discuss progressive use of T- Ball for vertical movements when leakage stops). *Continue Post- pelvic/ core stabilization. Frequency of 1.5-2 weeks for next 2 weeks for pt to work on achieving automatic TA contraction. *In 4 weeks, assess for improved Superficial PF ms ( quick flick) strength (and for L equal to R).
--- NOTE | 2020-10-01 16:25 | PT.OTN ---
Current Diagnoses Stiffness of unspecified hip, not elsewhere classified (10/01/20) Muscle weakness (generalized) (10/01/20) Stress incontinence (female) (male) (10/01/20) Abnormal posture (10/01/20) Unspecified urinary incontinence (10/01/20) Physical Therapy Treatment Note PT-OP-A Visit Information Start: 04/09/20 17:59 Freq: Status: Active Protocol: Document 10/01/20 14:29 LRN (Rec: 10/01/20 15:08 LRN [id number]) Out-Patient Physical Therapy Visit Information Visit Information Visit Type Treatment Note Visit Start Time 14:29 Visit Stop Time 15:03 Total Visit Minutes 34 Visit Number 12 Evaluation Information Evaluation Date 04/12/20 Precautions Precautions IUD in place. Post : s/p on 02/16. Manual extraction of placenta with no incisions. PT-OP-B Current Condition Start: 04/09/20 17:59 Freq: Status: Active Protocol: Document 04/12/20 12:23 LRN (Rec: 04/12/20 13:49 LRN [id number]) Current Condition History of Current Condition Onset Date 02/17/20 Current Complaints Significant urinary leakage History of Current Condition 8 weeks ago, vaginal with minor superficial tear. Manual extraction of placenta, no incisions. Feels she is having way more leaking than common. Not much leakage in AM. As day progresses she states the urinary leakage gets worse and by afternoon, pads are full after 1-2 hrs wear. She reports no feeling of a sensation to urinate and has no feeling of falling out . Activities like walking going up/down stairs increases her leakage significantly. Night time she wakes to feed baby and urinate although she doesn't have the urge to urinate. She uses an online exercise program developed by a PT (Expecting and Impowered program) 3x/week to build cardio post . Consciously she uses the bathroom every 1-2 hrs. Pt is also concerned of her Diastasis Rectus and preports she can fit 2 fingers (depth of fingers, not width) between her rectus muscles. Prior Treatments and Tests None. Symptoms of urgency before . During only incontinent with sneezing. Pt reports having an IUD placed recently. Future Testing and Treatments Planned None Treatment Goals Patient/Caregiver Goals Pt goal with therapy is to regain PF strength to eliminate leakage. Prior Functional Status Baseline Function- ADL's Independent Baseline Function- Mobility Independent Baseline Function- Other Urgency leakage, running to bathroom. Current Functional Impairments (Reported) Functional Limitations- ADL's Leakage with with sneezing, coughing, laughing, stairs up/ down, walking carrying baby, leaking prior to going to bathroom. Functional Limitations- Mobility/Gait Urinary leakage with gait. Functional Limitations- Work/School Worked in [email or web address] , currently unemployed but hopes to return to the workforce. Functional Limitations- Recreation/ Exercises 3-4x/week, Hobbies resistance type exercises with hand weights, Kegels daily, walking 2-3x/week for 30 minutes on own or with front holding baby carrier. Personal Factors Other Personal Factors That May Effect Pt spouse is , Therapy/Recovery sometimes travels. PT-OP-C Subjective Start: 04/09/20 17:59 Freq: Status: Active Protocol: Document 10/01/20 14:29 LRN (Rec: 10/01/20 15:08 LRN [id number]) OP-PT Subjective Patient Comments Patient Comments Last 2 weeks feels she is slightly worse. Has started working at home and sitting more. Using pad under panty with minimal leaking and changes underwear 3x/day and still. PT-OP-I Pelvic Floor Start: 04/09/20 17:59 Freq: Status: Active Protocol: Document 04/12/20 12:23 LRN (Rec: 04/12/20 13:49 LRN [id number]) Pelvic Floor Assessment Urine Other Urinary Symptoms Tender external R Labia majora . Leakage Size Medium Leakage Cause Cough,Exercise,Lifting,Sneeze Leaks Per Day Constant Voiding Frequency 8 Nocturia 2 Pads Used In 24 Hours 6 Urine Pad Type Depends Bowel Bowel Symptoms Uncontrolled Flatulence Other Bowel Symptoms Denies constipation. Bowel Movement Frequency 1-2 [place] Stool Chart Type 1-7 3 [place] Stool Chart Comments Occasionally type 4 Prolapse Cystocele Grade 2 Rectocele Grade 1 Perineal Descent Resting Present Bearing Present Contraction Ability Manual Muscle Testing Left 1 Manual Muscle Testing Right 1 Manual Muscle Testing Anterior 0 Manual Muscle Testing Posterior 3 Muscle Endurance (Seconds) 10 Number of Quick Contractions In 10 0 Seconds Comments Pelvic Floor Comments Visual inspection: -Can see a anal wink & mildly clitoral nod. -Vaginal gapping. -Red Perineum PALPATION: LONG HOLD:1 finger palpation internally can only feel contraction of posterior floor . QUICK FLICS: Lift only felt on L lateral wall. PT-OP-J Posture/Palpation/Skin Start: 04/09/20 17:59 Freq: Status: Active Protocol: Document 08/20/20 09:09 LRN (Rec: 08/20/20 09:51 LRN [id number]) Palpation Assessment Location Diastasis Rectus Palpation Location DR Palpation Details Umbilicus: 3 above edges felt 1.5 finger widths (very shallow) 2 above 1.5 finger widths 1 above 1.5 finger widths, ( shallow) 1 below 1.5 finger widths ( very shallow) 2 below closed 3 below closed PT-OP-K Range of Motion Start: 04/09/20 17:59 Freq: Status: Active Protocol: Document 04/12/20 12:23 LRN (Rec: 04/12/20 13:49 LRN [id number]) Lumbar Spine Range of Motion Lumbar Spine Active Degrees Testing Position Standing Flexion 45 Extension 15 Rotation Left 45 Rotation Right 45 Lateral Flexion Left 34 Lateral Flexion Right 37 Hip Goniometric Range of Motion Hip Right Passive Testing Position Supine Straight Leg Raise 80 Internal Rotation 38 External Rotation 65 Left Passive Testing Position Supine Straight Leg Raise 90 Internal Rotation 40 External Rotation 65 PT-OP-M Strength Start: 04/09/20 17:59 Freq: Status: Active Protocol: Document 04/12/20 12:23 LRN (Rec: 04/12/20 13:49 LRN [id number]) Trunk Strength Trunk Manual Muscle Testing Testing Position Supine Rotation Left 4 Good Rotation Right 4 Good Core Stabilization Loss of stabilization with MMT of LE's. Hip Strength Hip Manual Muscle Testing Right Comments Generally 5/5. Left Comments Generally 5/5. PT-OP-Q Treatments Start: 04/09/20 17:59 Freq: Status: Active Protocol: Document 10/01/20 14:29 LRN (Rec: 10/01/20 15:08 LRN [id number]) Therapeutic Exercises Other Exercises Child's Pose Other Exercise Name Child's Pose (L>R) Side bilateral Reps/Minutes 2' Comments Training for proper stretch position Manual Therapy Treatment Soft Tissue Mobilization L Iliopsoas Body Location L Iliopsoas Mobilization Type Sustained Pressure Intensity/Depth Deep Body Position Hooklying Comments Also done in supine Abdomen Body Location L abdomen and lateral trunk Mobilization Type Myofascial Release Intensity/Depth Superficial Body Position Supine Comments Pt also educated in self MFR technique to improve L trunk mobility medially and rotationally (CCW primarily). Joint Mobilizations L Sacrum Joint PA glide of L sacrum Direction PA Body Position Hooklying Reps/Duration 5' Comments + response, Self-Care/Home Management Treatment Education Other Education Education in proper sitting posture, mechanics and chair style. Discussed strategies to improve PF health sitting 1 -1.5 hrs at a time over 8 hr, at home. Educated for improved posture and postural awareness, at length, in standing with use of mirror and against wall, with ASIS/PSIS landmarks. Activities Self-Care/Home Management Activities I/S pt to focus on: Holding DA symmetrically (not on L) Child's Pose to stretch R LB MFR of L trunk medial glide & rotation (CCW>CW) Pelvis in neutral using ASIS/ PSIS landmarks. PT-OP-T Assessment and Plan Start: 04/09/20 17:59 Freq: Status: Active Protocol: Document 10/01/20 14:29 LRN (Rec: 10/01/20 15:08 LRN [id number]) Physical Therapy Assessment Goals Three Impairment Trunk strength Short Term Goal (STG) Pt will be educated in proper trunk care (TA/protecting DR), TA strengthening, and pt will be able to lift her legs against gravity with good trunk stability. (08/20/20: Good trunk stability with weakness during L leg lifts, pt holds TA during leg lifts without doming except for at initial L leg lift or end range of lowering) STG Duration 08/11/20 (08/20/20: Mostly MET GOAL) Auto Electrical Technician Goal (LTG) Pt will be able to perform resisted hip flex, ext, AB with good trunk stability. (09/17/20: L Hip Flex caused trunk L rotation due to weakness) LTG Duration 09/10/20 Two Impairment PF Strength Short Term Goal (STG) Improve PF strength to 2/5 around the PF clock, with improved level of continence with walking and stair ambulation (Initial: Long Hold 10 secs, Quick Flicks 0 reps - lacks superficial PF ms contraction; PF strength is 2/5 left & right lateral beltran; 2/5, posterior 3/5). (09/17/20: Superficial PF ms contraction visible. R lateral & posterior 3/5, L lateral 2/5). STG Duration 08/11/20 (Progressing: PF strength is 3/5 except L lateral wall 2/5) Auto Electrical Technician Goal (LTG) Improve PF strength to 3/5 with decreased complaints of urinary stress incontinent symptoms and pt will become aware of need to urinate and to remain continent with stair ambulation and in the presence of a strong cough, sneeze, laughing. (08/20/20: Pt able to PF contract before coughing, preventing urinary leakage). LTG Duration 10/10/20 (08/20/20: Improving ) One Impairment Lacks appropriate self care HEP Short Term Goal (STG) Educate pt in appropriate self care exercise using an online exercise program developed by a PT (Expecting and Impowered program), 3x/week to build cardio post . (07/22/20: Reviewed pt's home ex's with modifications as needed to decrease unnecessary strain on PF). STG Duration 08/11/20 (07/22/20: MET GOAL) Auto Electrical Technician Goal (LTG) Pt will be independent in a self care HEP for PF/core strengthening. (HANDOUTS Issued: *Genital hygiene, *vulvar care, * Bladder Retraining. HEP Issued/Reviewed: *Deep Breathing, LE Roll in/out: * feet on wall, *trunk rot. STRETCHES: *Fig 4, * Piriformis. INSTRUCTIONS FOR: Bridge w/PF/ BKFO, Around the PF clock), * Side Planks LTG Duration 10/10/20 (09/17/20: Progressing) Assessment Summary Assessment Today pt demonstrates slight anterior tilt of sacrum/pelvis with pt able to self correct in standing after much training. Her sacrum appears L rotated, but appeared improved after mobilization. L Iliopsoas screen initially showed tightness on left, but was not able to reproduce a second time; therefore will monitor for tightness. Physical Therapy Plan Frequency and Duration Frequency of Treatment 1x/Week Plan of Care Start Date 09/17/20 Plan of Care End Date 12/16/20 Next Visit Focus/Plan Next Note Type Treatment Note Next Visit Plan *Re-assess posture for sacral tilt and rotation. Recheck for tightness of Iliopsoas and issue stretch. Issue Child's pose stretch if needed. *Start hip AD isometric press in 3 different positions. *Assess PF strength (No doming at initial L leg lift or end range of lowering, and with resisted hip ext, AB with good trunk stability - progress with goal #3). *Review previously issued exercises: Hip stretches (ER> IR) add PSLR on right & bridging/BKFO, PF Clock. Sacral Mobilization to correct tilt as needed. *Check on progress of PF contractions with walking and review with stairs (Goal # 2). *Review LE roll in/out PF/core strengthening program of pelvic rotation strengthening (check to see if pt able to perform heel lift at 90 deg hip flex) and LE roll in/out with resistance and proper breathing (legs on ball). *Add sitting T-ball PF strengthening-Pelvic clock. *Discuss progressive use of T- Ball for vertical movements when leakage stops). *Continue Post- pelvic/ core stabilization. Frequency of 1.5-2 weeks for next 2 weeks for pt to work on achieving automatic TA contraction. *In 3 weeks, assess for improved Superficial PF ms ( quick flick) strength (and for L equal to R).
--- NOTE | 2020-10-22 10:30 | PT.OTN ---
Current Diagnoses Stiffness of unspecified hip, not elsewhere classified (10/22/20) Muscle weakness (generalized) (10/22/20) Stress incontinence (female) (male) (10/22/20) Abnormal posture (10/22/20) Unspecified urinary incontinence (10/22/20) Physical Therapy Treatment Note PT-OP-A Visit Information Start: 04/09/20 17:59 Freq: Status: Active Protocol: Document 10/22/20 08:18 LRN (Rec: 10/22/20 09:05 LRN [id number]) Out-Patient Physical Therapy Visit Information Visit Information Visit Type Treatment Note Visit Start Time 08:18 Visit Stop Time 09:04 Total Visit Minutes 46 Visit Number [id number] Evaluation Information Evaluation Date 04/12/20 Precautions Precautions IUD in place. Post : s/p on 02/16. Manual extraction of placenta with no incisions. PT-OP-B Current Condition Start: 04/09/20 17:59 Freq: Status: Active Protocol: Document 04/12/20 12:23 LRN (Rec: 04/12/20 13:49 LRN [id number]) Current Condition History of Current Condition Onset Date 02/17/20 Current Complaints Significant urinary leakage History of Current Condition 8 weeks ago, vaginal with minor superficial tear. Manual extraction of placenta, no incisions. Feels she is having way more leaking than common. Not much leakage in AM. As day progresses she states the urinary leakage gets worse and by afternoon, pads are full after 1-2 hrs wear. She reports no feeling of a sensation to urinate and has no feeling of falling out . Activities like walking going up/down stairs increases her leakage significantly. Night time she wakes to feed baby and urinate although she doesn't have the urge to urinate. She uses an online exercise program developed by a PT (Expecting and Impowered program) 3x/week to build cardio post . Consciously she uses the bathroom every 1-2 hrs. Pt is also concerned of her Diastasis Rectus and preports she can fit 2 fingers (depth of fingers, not width) between her rectus muscles. Prior Treatments and Tests None. Symptoms of urgency before . During only incontinent with sneezing. Pt reports having an IUD placed recently. Future Testing and Treatments Planned None Treatment Goals Patient/Caregiver Goals Pt goal with therapy is to regain PF strength to eliminate leakage. Prior Functional Status Baseline Function- ADL's Independent Baseline Function- Mobility Independent Baseline Function- Other Urgency leakage, running to bathroom. Current Functional Impairments (Reported) Functional Limitations- ADL's Leakage with with sneezing, coughing, laughing, stairs up/ down, walking carrying baby, leaking prior to going to bathroom. Functional Limitations- Mobility/Gait Urinary leakage with gait. Functional Limitations- Work/School Worked in [email or web address] , currently unemployed but hopes to return to the workforce. Functional Limitations- Recreation/ Exercises 3-4x/week, Hobbies resistance type exercises with hand weights, Kegels daily, walking 2-3x/week for 30 minutes on own or with front holding baby carrier. Personal Factors Other Personal Factors That May Effect Pt spouse is , Therapy/Recovery sometimes travels. PT-OP-C Subjective Start: 04/09/20 17:59 Freq: Status: Active Protocol: Document 10/22/20 08:18 LRN (Rec: 10/22/20 09:05 LRN [id number]) OP-PT Subjective Patient Comments Patient Comments Aout the same. Doing Kegels and carrying DA on both sides. Not able to ex with ball. Overall leakage is to poitn sehcan go out for extended periods and isn't as concerned . changes underwear 3x/day because leakage is about 3 in d[place]. PT-OP-I Pelvic Floor Start: 04/09/20 17:59 Freq: Status: Active Protocol: Document 04/12/20 12:23 LRN (Rec: 04/12/20 13:49 LRN [id number]) Pelvic Floor Assessment Urine Other Urinary Symptoms Tender external R Labia majora . Leakage Size Medium Leakage Cause Cough,Exercise,Lifting,Sneeze Leaks Per Day Constant Voiding Frequency 8 Nocturia 2 Pads Used In 24 Hours 6 Urine Pad Type Depends Bowel Bowel Symptoms Uncontrolled Flatulence Other Bowel Symptoms Denies constipation. Bowel Movement Frequency 1-2 [place] Stool Chart Type 1-7 3 [place] Stool Chart Comments Occasionally type 4 Prolapse Cystocele Grade 2 Rectocele Grade 1 Perineal Descent Resting Present Bearing Present Contraction Ability Manual Muscle Testing Left 1 Manual Muscle Testing Right 1 Manual Muscle Testing Anterior 0 Manual Muscle Testing Posterior 3 Muscle Endurance (Seconds) 10 Number of Quick Contractions In 10 0 Seconds Comments Pelvic Floor Comments Visual inspection: -Can see a anal wink & mildly clitoral nod. -Vaginal gapping. -Red Perineum PALPATION: LONG HOLD:1 finger palpation internally can only feel contraction of posterior floor . QUICK FLICS: Lift only felt on L lateral wall. PT-OP-J Posture/Palpation/Skin Start: 04/09/20 17:59 Freq: Status: Active Protocol: Document 08/20/20 09:09 LRN (Rec: 08/20/20 09:51 LRN [id number]) Palpation Assessment Location Diastasis Rectus Palpation Location DR Palpation Details Umbilicus: 3 above edges felt 1.5 finger widths (very shallow) 2 above 1.5 finger widths 1 above 1.5 finger widths, ( shallow) 1 below 1.5 finger widths ( very shallow) 2 below closed 3 below closed PT-OP-K Range of Motion Start: 04/09/20 17:59 Freq: Status: Active Protocol: Document 04/12/20 12:23 LRN (Rec: 04/12/20 13:49 LRN [id number]) Lumbar Spine Range of Motion Lumbar Spine Active Degrees Testing Position Standing Flexion 45 Extension 15 Rotation Left 45 Rotation Right 45 Lateral Flexion Left 34 Lateral Flexion Right 37 Hip Goniometric Range of Motion Hip Right Passive Testing Position Supine Straight Leg Raise 80 Internal Rotation 38 External Rotation 65 Left Passive Testing Position Supine Straight Leg Raise 90 Internal Rotation 40 External Rotation 65 PT-OP-M Strength Start: 04/09/20 17:59 Freq: Status: Active Protocol: Document 04/12/20 12:23 LRN (Rec: 04/12/20 13:49 LRN [id number]) Trunk Strength Trunk Manual Muscle Testing Testing Position Supine Rotation Left 4 Good Rotation Right 4 Good Core Stabilization Loss of stabilization with MMT of LE's. Hip Strength Hip Manual Muscle Testing Right Comments Generally 5/5. Left Comments Generally 5/5. PT-OP-Q Treatments Start: 04/09/20 17:59 Freq: Status: Active Protocol: Document 10/22/20 08:18 LRN (Rec: 10/22/20 09:05 LRN [id number]) Therapeutic Exercises Supine Exercises LE Roll in/out/PF/Deep Breath/Ball & Band Supine Exercise Name Roll in/outs w/PF/ball & band. Reps/Minutes 8' Hands/knees push Supine Exercise Name Hands/knees push: Feet down, Feet lifted Reps/Minutes 4' Comments No doming Leg lifts for TA control Supine Exercise Name Leg lifts controlling pelvis L rotation off TBall, and doming @ umbilicus Reps/Minutes 5' Comments Extra time taken to determine TA control for progression to ex Other Exercises Child's Pose Other Exercise Name Child's Pose (?R>L) Side bilateral Reps/Minutes 3' Comments Training for proper stretch position & to maximize stretch in area needed. Self-Care/Home Management Treatment Education Other Education Educated & discussed recommendations of aerobic ex other than bike & discussed at length modifications for biking (upright posture, proper breathing, use of thin front seat portion per literature). Educated pt in retraining for PF anthony prior to cough or sneeze. Pt to purposefully cough/sneeze but contract PF before performing. Educated/reviewed with pt need to modify ex without the up/down acitivities and PF stressful activities while and at least 6 months post , pt agreeable. Activities Self-Care/Home Management Activities Issued & reviewed Child's pose stretch and LE roll in/out with legs up on ball with TB & small ball. I/S pt to add wedge to ex's. PT-OP-T Assessment and Plan Start: 04/09/20 17:59 Freq: Status: Active Protocol: Document 10/22/20 08:18 LRN (Rec: 10/22/20 09:05 LRN [id number]) Physical Therapy Assessment Goals Three Impairment Trunk strength Short Term Goal (STG) Pt will be educated in proper trunk care (TA/protecting DR), TA strengthening, and pt will be able to lift her legs against gravity with good trunk stability. (08/20/20: Good trunk stability with weakness during L leg lifts, pt holds TA during leg lifts without doming except for at initial L leg lift or end range of lowering) STG Duration 08/11/20 (08/20/20: Mostly MET GOAL) Snf Goal (LTG) Pt will be able to perform resisted hip flex, ext, AB with good trunk stability. (09/17/20: L Hip Flex caused trunk L rotation due to weakness) LTG Duration 09/10/20 Two Impairment PF Strength Short Term Goal (STG) Improve PF strength to 2/5 around the PF clock, with improved level of continence with walking and stair ambulation (Initial: Long Hold 10 secs, Quick Flicks 0 reps - lacks superficial PF ms contraction; PF strength is 2/5 left & right lateral beltran; 2/5, posterior 3/5). (09/17/20: Superficial PF ms contraction visible. R lateral & posterior 3/5, L lateral 2/5). STG Duration 08/11/20 (Progressing: PF strength is 3/5 except L lateral wall 2/5) Banbury Mixer Operator Goal (LTG) Improve PF strength to 3/5 with decreased complaints of urinary stress incontinent symptoms and pt will become aware of need to urinate and to remain continent with stair ambulation and in the presence of a strong cough, sneeze, laughing. (08/20/20: Pt able to PF contract before coughing, preventing urinary leakage). LTG Duration 10/10/20 (08/20/20: Improving ) One Impairment Lacks appropriate self care HEP Short Term Goal (STG) Educate pt in appropriate self care exercise using an online exercise program developed by a PT (Expecting and Impowered program), 3x/week to build cardio post . (07/22/20: Reviewed pt's home ex's with modifications as needed to decrease unnecessary strain on PF). STG Duration 08/11/20 (07/22/20: MET GOAL) Snf Goal (LTG) Pt will be independent in a self care HEP for PF/core strengthening. (HANDOUTS Issued: *Genital hygiene, *vulvar care, * Bladder Retraining. HEP Issued/Reviewed: *Deep Breathing, LE Roll in/out: * feet on wall, *trunk rot, * Feet off wall w/TB/ball. STRETCHES: *Fig 4, * Piriformis, *Child's Pose stretch. INSTRUCTIONS FOR: Bridge w/PF/ BKFO, Around the PF clock), * Side Planks LTG Duration 10/10/20 (10/22/20: Progressing) Assessment Summary Assessment Pt receptive to holding off on high intensity aerobics until after breast feeding, but is wanting replacement aerobics. Symptoms appear to be due to PF weakness with leakage 3x/ day of varying degree. Pt DR appears relatively closed with 1.5 finger width 1 above umbilicus of very shallow depth, and she is able to not dome while doing heels off wall leg lifts for core strengthening. Pt time limited at home; therefore focus needs to be on PF strengthening and mobility stretches to hips/LB and aerobic ex of higher intensity walking with proper breathing . Physical Therapy Plan Frequency and Duration Frequency of Treatment 1x/Week Plan of Care Start Date 09/17/20 Plan of Care End Date 12/16/20 Next Visit Focus/Plan Next Note Type Treatment Note Next Visit Plan *Re-assess posture for sacral tilt and rotation. Recheck for tightness of Iliopsoas and issue stretch. *Assess for improved Superficial PF ms (quick flick ) strength (and for L equal to R). *Start hip AD isometric press in 3 different positions. *Assess PF strength *Assess core strength (With resisted hip ext, AB with good trunk stability - progress with goal #3). *Review previously issued exercises: Heels off wall ex. Add PSLR on right & bridging /BKFO. Sacral Mobilization to correct tilt as needed. *Check on progress of PF contractions with walking and review with stairs (Goal # 2). *Add sitting T-ball PF strengthening-Pelvic clock. *Discuss progressive use of T- Ball for vertical movements when leakage stops). *Continue Post- pelvic/ core stabilization. Frequency of 1.5-2 weeks for next 2 weeks for pt to work on achieving automatic TA contraction.
--- NOTE | 2020-12-17 12:09 | PT.OTN ---
Current Diagnoses Stiffness of unspecified hip, not elsewhere classified (12/17/20) Muscle weakness (generalized) (12/17/20) Stress incontinence (female) (male) (12/17/20) Abnormal posture (12/17/20) Unspecified urinary incontinence (12/17/20) Physical Therapy Treatment Note PT-OP-A Visit Information Start: 04/09/20 17:59 Freq: Status: Active Protocol: Document 12/17/20 08:12 LRN (Rec: 12/17/20 09:46 LRN [id number]) Out-Patient Physical Therapy Visit Information Visit Information Visit Type Progress Note Visit Start Time 08:15 Visit Stop Time 09:58 Total Visit Minutes 43 Visit Number 14 Evaluation Information Evaluation Date 04/12/20 Precautions Precautions IUD in place. Post : s/p on 02/16. Manual extraction of placenta with no incisions. PT-OP-B Current Condition Start: 04/09/20 17:59 Freq: Status: Active Protocol: Document 04/12/20 12:23 LRN (Rec: 04/12/20 13:49 LRN [id number]) Current Condition History of Current Condition Onset Date 02/17/20 Current Complaints Significant urinary leakage History of Current Condition 8 weeks ago, vaginal with minor superficial tear. Manual extraction of placenta, no incisions. Feels she is having way more leaking than common. Not much leakage in AM. As day progresses she states the urinary leakage gets worse and by afternoon, pads are full after 1-2 hrs wear. She reports no feeling of a sensation to urinate and has no feeling of falling out . Activities like walking going up/down stairs increases her leakage significantly. Night time she wakes to feed baby and urinate although she doesn't have the urge to urinate. She uses an online exercise program developed by a PT ([employer]ing [employer] program) 3x/week to build cardio post . Consciously she uses the bathroom every 1-2 hrs. Pt is also concerned of her Diastasis Rectus and preports she can fit 2 fingers (depth of fingers, not width) between her rectus muscles. Prior Treatments and Tests None. Symptoms of urgency before . During only incontinent with sneezing. Pt reports having an IUD placed recently. Future Testing and Treatments Planned None Treatment Goals Patient/Caregiver Goals Pt goal with therapy is to regain PF strength to eliminate leakage. Prior Functional Status Baseline Function- ADL's Independent Baseline Function- Mobility Independent Baseline Function- Other Urgency leakage, running to bathroom. Current Functional Impairments (Reported) Functional Limitations- ADL's Leakage with with sneezing, coughing, laughing, stairs up/ down, walking carrying baby, leaking prior to going to bathroom. Functional Limitations- Mobility/Gait Urinary leakage with gait. Functional Limitations- Work/School Worked in [employer] , currently unemployed but hopes to return to the workforce. Functional Limitations- Recreation/ Exercises 3-4x/week, Hobbies resistance type exercises with hand weights, Kegels daily, walking 2-3x/week for 30 minutes on own or with front holding baby carrier. Personal Factors Other Personal Factors That May Effect Pt spouse is , Therapy/Recovery sometimes travels. PT-OP-C Subjective Start: 04/09/20 17:59 Freq: Status: Active Protocol: Document 12/17/20 08:12 LRN (Rec: 12/17/20 09:46 LRN [id number]) OP-PT Subjective Patient Comments Patient Comments Has been getting slowly better , not yet leak free. Now not having to change underwear almost not at all, did yesterday in late afternoon due to very small light leak. Is wearing absorbant underwear underneath her cotton underwear. Traveled recently in airport had one pad the entire day without having to change it. Did have some little leaks, no big leaks. Plan is to stop breast feeding at end of December. Urgency leaking with stairs and ambulation and with coughing and sneezing ~7 of 10 times. A little leakage with walking. PT-OP-I Pelvic Floor Start: 04/09/20 17:59 Freq: Status: Active Protocol: Document 12/17/20 08:12 LRN (Rec: 12/17/20 09:46 LRN [id number]) Pelvic Floor Assessment Prolapse Cystocele Grade 2 Contraction Ability Voluntary Contraction Moderate Voluntary Relaxation Moderate Manual Muscle Testing Left 2 Manual Muscle Testing Right 3 Manual Muscle Testing Anterior 3 Manual Muscle Testing Posterior 3 Muscle Endurance (Seconds) 10 Number of Quick Contractions In 10 4 Seconds Comments Pelvic Floor Comments Visual inspection: -Can see a anal wink & mildly clitoral nod. -Mild vaginal gapping. PALPATION: LONG HOLD:1 finger palpation internally can mainly feel contraction of posterior floor . QUICK FLICKS: Lift only felt bilaterally, slight less on L lateral wall. PT-OP-J Posture/Palpation/Skin Start: 04/09/20 17:59 Freq: Status: Active Protocol: Document 12/17/20 08:12 LRN (Rec: 12/17/20 09:46 LRN [id number]) Posture Evaluation Comments Posture Comments Mild anterior pelvic tilt that pt corrects easily. No rotation of sacrum noted. PT-OP-K Range of Motion Start: 04/09/20 17:59 Freq: Status: Active Protocol: Document 04/12/20 12:23 LRN (Rec: 04/12/20 13:49 LRN [id number]) Lumbar Spine Range of Motion Lumbar Spine Active Degrees Testing Position Standing Flexion 45 Extension 15 Rotation Left 45 Rotation Right 45 Lateral Flexion Left 34 Lateral Flexion Right 37 Hip Goniometric Range of Motion Hip Right Passive Testing Position Supine Straight Leg Raise 80 Internal Rotation 38 External Rotation 65 Left Passive Testing Position Supine Straight Leg Raise 90 Internal Rotation 40 External Rotation 65 PT-OP-M Strength Start: 04/09/20 17:59 Freq: Status: Active Protocol: Document 12/17/20 08:12 LRN (Rec: 12/17/20 09:46 LRN [id number]) Trunk Strength Trunk Manual Muscle Testing Testing Position Supine Flexion 4+ Good+ Extension 4+ Good+ Rotation Left 3+ Fair+ Rotation Right 3 Fair Lateral Flexion Left 4+ Good+ Lateral Flexion Right 4+ Good+ Core Stabilization Pt lacks stabilization due to decreased control holding of trunk rotators. Assessment above made via MMT of hip strength. PT-OP-Q Treatments Start: 04/09/20 17:59 Freq: Status: Active Protocol: Document 12/17/20 08:12 LRN (Rec: 12/17/20 09:46 LRN [id number]) Therapeutic Exercises Supine Exercises Trunk rot w/feet on wall Supine Exercise Name Trunk rotation w/feet on wall Side bilateral Reps/Minutes 4' Iliopsoas stretch Supine Exercise Name Iliopsoas stretch (Abebe test position) Side bilateral Reps/Minutes 3' Bridge with SLR Supine Exercise Name Bridge with Leg extended Side bilateral Reps/Minutes 4' Hip Flex Supine Exercise Name Hip Flex Side bilateral Comments MMT for core assessment (hip strength is 5/5) Hands/knees push Supine Exercise Name Single hands/knees push for trunk rot strengthening Side bilateral Reps/Minutes 4' PF contractioins Supine Exercise Name PF long holds & quick flicks Comments PF MMT taken PF Bridge w/BKFO Supine Exercise Name Bridge with hip ER/IR Side bilateral Reps/Minutes 4' Comments Extra time for training Prone Exercises Hip Ext Prone Exercise Name Hip Ext Side bilateral Comments MMT for core assessment (hip strength is 5/5) Sidelying Exercises Hip AB Sidelying Exercise Name Hip AB Side bilateral Comments MMT for core assessment (hip strength is 5/5) Hip AD/TA Sidelying Exercise Name Hip AD w/TA/PF for Quick Flicks and Long holds Side bilateral Reps/Minutes 6' Standing Exercises Hip Flexor stretch Standing Exercise Name Iliopsoas stretch Reps/Minutes 1' Comments Review of stretch with handout Self-Care/Home Management Treatment Education Patient Education Home Exercise Program Other Education Discussed & educated pt in progressive PF ex of vertical forces (bouncing on TBall, heel drops). Discussed and educated pt in pros/cons of bicycle exercising. Discussed various form of other ex (swim , walk, hike), pros/cons. Activities Self-Care/Home Management Activities Issued & reviewed HEP: Standing Iliopsoas stretch ( verbal I/S of sup Iliopsoas stretch), Sup: trunk rotation (hands/knees push) and verbal I/S for trunk rot w/feet on wall. Hip AD w/instructions and training of PF quick flicks and long holds with exercising. PT-OP-T Assessment and Plan Start: 04/09/20 17:59 Freq: Status: Active Protocol: Document 12/17/20 08:12 LRN (Rec: 12/17/20 09:46 LRN [id number]) Physical Therapy Assessment Goals Four Impairment Increased frequency of voiding (day 8x or every 1-2hrs, nighttime 2x). Short Term Goal (STG) Decrease daytime voiding to 5- 7 times. NOTE: Baseline is every 2 hours. (08/09/20: Voiding every 2 hours, leakage is reportedly significantly less with a decrease in intensity during her workouts. Changing absorbent underwear ~1x/day. Leaks with strenuous activity or exercise). STG Duration 08/11/20 (08/09/20: MET GOAL) Explosives Worker Goal (LTG) Decrease nighttime voiding to 1x/night. (08/09/20: Pt sleeping through the night). LTG Duration 09/10/20 (08/09/20: MET GOAL) Three Impairment Trunk strength Short Term Goal (STG) Pt will be educated in proper trunk care (TA/protecting DR), TA strengthening, and pt will be able to lift her legs against gravity with good trunk stability. (08/20/20: Good trunk stability with weakness during L leg lifts, pt holds TA during leg lifts without doming except for at initial L leg lift or end range of lowering) STG Duration 08/11/20 (08/20/20: Mostly MET GOAL, trunk rot weak) Half-Way Goal (LTG) Pt will be able to perform resisted hip flex, ext, AB with good trunk stability. (09/17/20: L Hip Flex caused trunk L rotation due to weakness) LTG Duration 09/10/20 (12/17/20: NOT MET, trunk rot weakness evident) Two Impairment PF Strength Short Term Goal (STG) Improve PF strength to 2/5 around the PF clock, with improved level of continence with walking and stair ambulation (Initial: Long Hold 10 secs, Quick Flicks 0 reps - lacks superficial PF ms contraction; PF strength is 2/5 left & right lateral beltran; 2/5, posterior 3/5). (09/17/20: Superficial PF ms contraction visible. R lateral & posterior 3/5, L lateral 2/5). (12/17/20: No significatn leakage with wlaking or stairs ) STG Duration 08/11/20 (12/17/20: PF strength is 3/5 except L lateral wall 2/5) Explosives Worker Goal (LTG) Improve PF strength to 3/5 with decreased complaints of urinary stress incontinent symptoms and pt will become aware of need to urinate and to remain continent with stair ambulation and in the presence of a strong cough, sneeze, laughing. (08/20/20: Pt able to PF contract before coughing, preventing urinary leakage). LTG Duration 10/10/20 (12/17/20: Improved, leaking ~7/10 times) One Impairment Lacks appropriate self care HEP Short Term Goal (STG) Educate pt in appropriate self care exercise using an online exercise program developed by a PT ([employer] program), 3x/week to build cardio post . (07/22/20: Reviewed pt's home ex's with modifications as needed to decrease unnecessary strain on PF). STG Duration 08/11/20 (07/22/20: MET GOAL) Explosives Worker Goal (LTG) Pt will be independent in a self care HEP for PF/core strengthening. (HANDOUTS Issued: *Genital hygiene, *vulvar care, * Bladder Retraining. HEP Issued/Reviewed: *Deep Breathing, LE Roll in/out: * feet on wall, *trunk rot, * Feet off wall w/TB/ball, * Hands/knees push, *Hip AD/PF ( quick and long holds) strengthening. STRETCHES: *Fig 4, * Piriformis, *Child's Pose stretch, Iliopsoas stand & sup . INSTRUCTIONS FOR: Bridge w/PF/ BKFO & leg lift, Around the PF clock), *Side Planks, *trunk rot w/feet on wall, * progressive ex of vertical stress of PF (bounce on TB & heel drops). LTG Duration 10/10/20 (12/17/20: MET GOAL) Assessment Summary Assessment Pt attends for reassessment and update to her plan of care . She presents with slow improvement in her level of urinary continence. The pt admittedly reports she has not been doing Kegel ex due to thinking since she is still , results of ex will be poor; therefore she hopes to do more ex once she stops in another month. The pt presents with mild weakness of the PF lateral beltran for quick flicks , primarily on the left. She is leaking 7/10 times when coughing or sneezing and is still experiencing urinary leakage occasionally with walking and stairs. Her urinary leakage amount has decreased in volume with only small minor leaks. She demonstrates weakness of her core rotators but her posture has improved. She has only mild anterior tilt of her pelvis in standing, correlating to anterior PF weakness posturing. If the pt is not able to regain her level of continence 6 months after ending , then further therapy to progress the pt towards urinary continence would be appropriate. I have encouraged the pt to restart her Kegel ex program in hopes that within 6 months time of stopping , she will regain full continence and resume her active exercise lifestyle. Physical Therapy Plan Frequency and Duration Frequency of Treatment 1x/Week Plan of Care Start Date 12/16/20 Plan of Care End Date 12/17/20 Discharge Physical Therapy Discharge Comments The pt has been placed on a self care HEP that she can continue to work towards greater urinary continence. Not all goals were met, but it is expected she will progress in her level of continence once she has finished and is able to continue her HEP. PT in the future for urinary incontinence (waiting at least 6 month post ) would be beneficial if the pt is unable to regain urinary incontinence 6-12 months after ending .
== END 2020-12-20 10:33 | disposition home or self-care (01) ==
LOC: PHYS 08:15
PROVIDERS: PCP Registered Nurse Diabetes Educator; Referring Provider Registered Nurse Diabetes Educator; Visit Provider Registered Nurse Diabetes Educator
DX: N39.3 Stress incontinence (female) (male) (principal); R29.3 Abnormal posture; M62.81 Muscle weakness (generalized); M25.659 Stiffness of unspecified hip, not elsewhere classified
CPT/HCPCS: 97110; 97140; 97162; 97535

== ENCOUNTER → 2022-01-12 16:47 | Outpatient (CLI) | payer OTHER, SELFPAY ==
[2022-01-12 18:34] LABS: HCG Quantitative /Beta subunit 214.8 mIU/mL
== END ==
PROVIDERS: PCP Registered Nurse Diabetes Educator; Referring Provider Specialist; Visit Provider Specialist
DX: Z34.90 Encounter for supervision of normal pregnancy, unspecified, unspecified trimester (principal)
CPT/HCPCS: 36415; 84702

== ENCOUNTER → 2022-01-14 10:46 | Outpatient (CLI) | payer OTHER, SELFPAY | PROVIDERS: PCP Registered Nurse Diabetes Educator; Referring Provider Specialist; Visit Provider Specialist | DX: Z34.90 Encounter for supervision of normal pregnancy, unspecified, unspecified trimester (principal) | CPT/HCPCS: 36415; 84702 ==

== ENCOUNTER → 2022-02-08 09:55 | Outpatient (CLI) | payer OTHER, SELFPAY ==
--- NOTE | 2022-02-08 09:56 | DI.US.S_ITS ---
PROCEDURE: US OB <= 14 WEEKS FETUS INDICATIONS: dating and viability OUTSIDE/PRIOR DATING DATA: Last menstrual period (LMP): 12/15/2021. LMP-based estimated date of delivery (TARIK): 09/21/2022. First dating scan (date and location): 02/08/2022. Estimated date of delivery (TARIK) from first dating scan: 09/20/2022 The calculations are made using the clinical TARIK of 09/21/2022. TECHNIQUE: Real-time scanning was performed of the fetus and maternal pelvic organs, with image documentation. Endovaginal scanning was also performed to better visualize the fetus and maternal ovaries. COMPARISON: None. FINDINGS: Embryo: Single live intrauterine is identified with crown-rump length measuring 1.6 cm corresponding to 8 weeks 0 days. There is a small perigestational bleed measuring 1.3 x 0.6 x 1.9 cm. Heart rate: 160 beats per minute Maternal organs: Ovaries demonstrate a right corpus luteal cyst. IMPRESSION: Single live intrauterine with ultrasound gestational age today of 8 weeks 6 days. Small perigestational bleed. Interval follow-up is recommended. Recommend followup imaging at 20-22 weeks for dates and anatomy. We strive to produce accurate, complete, and clear reports of imaging services. To assist us in improving patient care, this report was composed using standard report templates and voice recognition software. Therefore, it may contain abnormal punctuation, insertions and/or omissions. Occasional wrong-word or sound-alike substitutions may occur. Though we review the report and make efforts to correct it, we do recommend that the report be read carefully in proper context to recognize any text inaccuracies. Dictated by: Sandra Mario M.D. on 02/08/2022 at 14:49 Approved by: Sandra Mario M.D. on 02/08/2022 at 14:51
== END ==
PROVIDERS: PCP Registered Nurse Diabetes Educator; Referring Provider Obstetrics & Gynecology; Visit Provider Obstetrics & Gynecology
DX: O20.8 Other hemorrhage in early pregnancy (principal)
CPT/HCPCS: 76801; 76817

== ENCOUNTER → 2022-03-07 16:32 | Outpatient (CLI) | payer OTHER, SELFPAY ==
[2022-03-07 17:37] LABS: Add Manual Diff / Slide Review NO; Basophils Absolute Auto 0 /uL (0-100); Basophils Percent Auto 0.4 % (0-2); Eosinophils Absolute Auto 200 /uL (0-450); Eosinophils Percent Auto 1.7 % (2-4); Hematocrit 36.7 % (36-46); Hemoglobin 12.5 g/dL (12.0-16.0); Lymphocytes Absolute Auto 2200 /uL (1100-4500); Lymphocytes Percent Auto 23.2 % (25-40); Mean Corpuscular Volume 88.4 fL (80-100); Monocytes Absolute Auto 400 /uL (0-900); Monocytes Percent Auto 4.7 % (3-14); Neutrophils Absolute Auto 6500 /uL (1500-7000); Platelet Count 319 X10^3/uL (150-400); Red Blood Cell Count 4.15 X10^6/uL (4.0-5.2); Red Cell Distribution Width 12.6 % (11.6-14.8); White Blood Cell Count 9.3 X10^3/uL (4.5-11.0)
[2022-03-07 18:13] LABS: Appearance Urine UA CLEAR; Bilirubin Urine UA NEGATIVE (NEGATIVE); Color Urine UA YELLOW; Glucose Urine UA NEGATIVE (Negative); Ketones Urine UA TRACE (NEGATIVE); Leukocyte Esterase Urine UA NEGATIVE (NEGATIVE); Nitrite Urine UA NEGATIVE (Negative); Occult Blood Urine UA TRACE-INTACT (Negative); Protein Urine UA NEGATIVE (Negative); Specific Gravity Urine UA <=1.005 (1.000-1.035); Urobilinogen Urine UA 0.2 E.U./dL (0.2)
[2022-03-07 18:19] LABS: pH Urine UA 5.5 (4.5-8.0)
[2022-03-09 08:40] LABS: RPR Screen Non Reactive (Non Reactive); Varicella IgG Antibody 1625 index (Immune >165)
[2022-03-09 16:08] LABS: Hepatitis B Surface Antigen NEGATIVE s/c (NEGATIVE)
[2022-03-09 16:29] LABS: HIV 1 & 2 Ab/Ag 4th Gen Combo NEGATIVE (NEGATIVE); Hep C Virus Ab w/Reflex Quant NEGATIVE s/c (NEGATIVE)
[2022-03-09 17:17] LABS: Candida species Negative (Negative); Gardnerella vaginalis Negative (Negative); Trichomoas vaginalis Negative (Negative)
== END ==
PROVIDERS: PCP Registered Nurse Diabetes Educator; Referring Provider Obstetrics & Gynecology; Visit Provider Obstetrics & Gynecology
DX: O26.899 Other specified pregnancy related conditions, unspecified trimester (principal); N89.8 Other specified noninflammatory disorders of vagina
CPT/HCPCS: 80055; 81003; 86787; 86803; 86850; 86900; 86901; 87086; 87389; 87480; 87510; 87660

== ENCOUNTER → 2022-04-10 16:37 | Outpatient (CLI) | payer OTHER, SELFPAY ==
[2022-04-13 21:54] LABS: AFP Value 42.3 ng/mL (.); Gest Age on Col Date 16.6 weeks (.); Insulin Dep Diabetes No (.); OSBR Risk 1IN 10000 (.); Results Report (.); Test Results *Screen Negative* (.)
== END ==
PROVIDERS: PCP Registered Nurse Diabetes Educator; Referring Provider Obstetrics & Gynecology; Visit Provider Obstetrics & Gynecology
DX: Z34.82 Encounter for supervision of other normal pregnancy, second trimester (principal); Z3A.16 16 weeks gestation of pregnancy
CPT/HCPCS: 36415; 82105

== ENCOUNTER → 2022-05-03 08:49 | Outpatient (CLI) | payer OTHER, SELFPAY ==
--- NOTE | 2022-05-03 08:49 | DI.US.S_ITS ---
PROCEDURE: US OB >= 14 WEEKS FETUS INDICATIONS: ANATOMY OUTSIDE/PRIOR DATING DATA: Last menstrual period (LMP): 12/15/2021 LMP-based estimated date of delivery (TARIK): 09/21/2022 First dating scan (date and location): 02/08/2022 Estimated date of delivery (TARIK) from first dating scan: 09/20/2022 TECHNIQUE: Real-time scanning was performed of the fetus, with image documentation and biometric measurements. COMPARISON: [facility], , OB >= 14 WEEKS FETUS, 02/11/2020, 12:03. FINDINGS: General: A single living intrauterine gestation is present. Presentation: Vertex. Placenta: Posterior left, no previa Amniotic fluid index: 18.5 heart rate: 145 beats per minute Maternal cervical canal: 3.6 centimeters biometrics: Biparietal diameter: 4.8 centimeters Head circumference: 17.1 centimeters Abdominal circumference: 15.4 centimeters Femur length: 3.1 centimeters Clinically estimated gestational age: 19 weeks and 6 days Composite gestational age from present scan: 20 weeks and 1 day Estimated weight and percentile: 59th percentile, 331 grams Anatomic survey: Neuro: Ventricles are non-dilated at less than 10 mm. Cisterna magna is normal at 3-11 mm. Cerebellum is normal in size and morphology. Nuchal skin fold: Normal at less than 6 mm between 14-21 weeks gestational age. Face: Nose and lips, facial profile are normal. Spine: No evidence for spina bifida. Heart: 4-chambered heart is present, with normal ventricular outflow tracts. Diaphragm: Diaphragm is intact. Stomach: Left-sided stomach is present. Kidneys: No hydronephrosis. Normal is less than 5 mm in 2nd trimester, less than 7 mm in 3rd trimester. Cord: 3-vessel cord has orthotopic insertion. Bladder: Normal in size. Extremities: All 4 extremities identified. IMPRESSION: Living intrauterine at 19 weeks and 6 days. Concordant dating today at the 59th percentile for EFW. Anatomic survey is within normal limits. Reported intermittent pain in the left inferior region corresponding to a heterogeneous hypoechoic region measuring 5.3 x 3.1 x 1.6 centimeter, representing a placental venous Garcia or hematoma. Consider follow-up imaging to reassess, particularly if symptoms persist or worsen. We strive to produce accurate, complete, and clear reports of imaging services. To assist us in improving patient care, this report was composed using standard report templates and voice recognition software. Therefore, it may contain abnormal punctuation, insertions and/or omissions. Occasional wrong-word or sound-alike substitutions may occur. Though we review the report and make efforts to correct it, we do recommend that the report be read carefully in proper context to recognize any text inaccuracies. Dictated by: Kennedy Watson M.D. on 05/03/2022 at 13:39 Approved by: Kennedy Watson M.D. on 05/03/2022 at 13:47
== END ==
PROVIDERS: PCP Registered Nurse Diabetes Educator; Referring Provider Obstetrics & Gynecology; Visit Provider Obstetrics & Gynecology
DX: Z34.82 Encounter for supervision of other normal pregnancy, second trimester (principal); Z3A.19 19 weeks gestation of pregnancy
CPT/HCPCS: 76811

== ENCOUNTER → 2022-05-31 07:18 | Outpatient (CLI) | payer OTHER, SELFPAY ==
[2022-05-31 08:31] LABS: Influenza A - CEPHEID Flu A NEGATIVE (NEGATIVE); Influenza B - CEPHEID Flu B NEGATIVE (NEGATIVE); Respiratory Syncytial Virus Negative (Negative)
[2022-05-31 08:33] LABS: COVID-19 CEPHEID 4-PLEX PCR Negative (Negative)
== END ==
PROVIDERS: PCP Registered Nurse Diabetes Educator; Visit Provider Registered Nurse
DX: J02.9 Acute pharyngitis, unspecified (principal); R05.1 Acute cough
CPT/HCPCS: 0241U; 87070

== ENCOUNTER → 2022-06-02 07:08 | Outpatient (CLI) | payer OTHER, SELFPAY ==
[2022-06-02 09:27] LABS: Hematocrit 36.4 % (36-46); Hemoglobin 12.2 g/dL (12.0-16.0)
[2022-06-02 10:00] LABS: GTT (PREG) 1 Hour PP 50gm Dose 164 mg/dL (76-139)
== END ==
PROVIDERS: PCP Registered Nurse Diabetes Educator; Referring Provider Obstetrics & Gynecology; Visit Provider Obstetrics & Gynecology
DX: Z34.82 Encounter for supervision of other normal pregnancy, second trimester (principal); Z20.828 Contact with and (suspected) exposure to other viral communicable diseases; Z3A.26 26 weeks gestation of pregnancy
CPT/HCPCS: 82950; 85014; 85018; 86644; 86645

== ENCOUNTER → 2022-06-09 12:54 | Outpatient (CLI) | payer OTHER, SELFPAY ==
--- NOTE | 2022-06-13 14:11 | DIAB.GDA ---
Initial Gestational Diabetes Assessment Name: Lissette Smith (Jaclyn) Date: 06/09/21 Time: 105-205p Dx: Gestational Diabetes History Provider: Magali TARIK: 09/21/21 Weeks: 25 Jaclyn presents for initial visit regarding her h/o GDM and elevated glucose screen. Reports maternal FH of T2DM. Also endorses PMH of GDM with her daughters >2 years ago. Last GDM was diet controlled, and did see a family life educator when initially diagnosed. States after her recent elevated glucose screen of 164 mg/dl, she declined the OGTT and wants to proceed with GDM care. She is having a girl! Endorses 11 months of BFing with last child. Plans to BF this child. Today she would like a nutrition review. Would also like to review SMBG goals and carb recs during . States she is struggling with snack ideas and feels hunger q 2 hours. Diet Recall: 8a: low CHO yogurt with nuts and berries OR unsweetened Chinese yogurt with stevia OR raisin toast with cottage cheese 10a: keto bar or balanced break snack pk 12p: leftovers OR low carb quesadilla with black beans 2-3p: cheese and crackers OR same as 10 am snack 530-615p: 1.5c chickpea pata with meat sauce or fish and veggies OR grilled cheese OR chicken tikka masala 8-10p: low carb yogurt with PB and mini mona chips Beverages: 70-80oz water, 8-12oz coffee, +/- herbal tea or seltzer water. Has cut out rice, most breads, and cereal. Anthropometrics: Ht: 61 Wt: 132# last OB visit 06/01/22 Prepregnancy wt: 118# Physical Activity: reduced activity over the last 2 weeks, though reports usually does 3 days per week of resistance training or cardio. Currently in PT weekly for pelvic floor. Self-Monitoring Blood Glucose: Recently started checking FBG and 2 hour pc. All below recs for BG goals. Some <100mg/dl pc indicating inadequate CHO intake, which is consistent with her report. Date Pre Post Pre Post Pre Post HS 06/07 75 98 107 85 06/08 79 90 108 1hr 83 06/09 81 79 Diabetes Medications: None Pertinent Labs: Screen 164 Nutrition Rx: Carbohydrates: Daily: 180 Meal: 45-g lunch and dinner; 30g breakfast Snack: 15-30g Nutrition Diagnosis: Altered nutrition related lab value r/t glucose intolerance aeb recent screen and h/o GDM Inadequate CHO intake for r/t nutrition knowledge deficit aeb diet recall and pt report Intervention: This participant was very receptive. Provided appropriate educational handouts. Discussed the following topics: GDM pathophysiology and impact of hyperglycemia on mom and baby Risk for T2DM for mom and baby in the future Ways to reduce risk T2DM Plate Method, meal timing, carb counting, pairing macronutrients and spreading out CHO for better BG management Rec PACKING TRACTOR MACHINE OPERATOR for CHO during Blood glucose goals (FBG: <95 and 2 hour <120 mg/dL); importance of checking 4x per day (FBG and pc) Impact of macronutrients on blood glucose Recommended servings for carbohydrates at meals and snacks Brainstormed appropriate meal plan based on her food preferences Provided snack list for additional ideas Role of physical activity and following provider guidelines for safety Goals: Add carbs back in moderation Cont checking BG Exercise 3 days per week for 30-45 mins Follow-up: JHONNY ECKERT follow-up in one week via phone and two weeks 1:1 Cassandra Obregon RDN, TOMEKA Certified Diabetes Care and Cooling Machine Operator T: [phone] F: [phone] [email or web address] Thank you for this referral
== END ==
PROVIDERS: PCP Registered Nurse Diabetes Educator; Referring Provider Obstetrics & Gynecology; Visit Provider Obstetrics & Gynecology
DX: O24.419 Gestational diabetes mellitus in pregnancy, unspecified control (principal); Z3A.25 25 weeks gestation of pregnancy; Z71.3 Dietary counseling and surveillance
CPT/HCPCS: 97802

== ENCOUNTER → 2022-06-19 08:32 | Outpatient (CLI) | payer OTHER, SELFPAY | PROVIDERS: PCP Registered Nurse Diabetes Educator; Referring Provider Obstetrics & Gynecology; Visit Provider Obstetrics & Gynecology | DX: Z20.828 Contact with and (suspected) exposure to other viral communicable diseases (principal) | CPT/HCPCS: 36415; 86645 ==

== ENCOUNTER → 2022-07-13 12:58 | Outpatient (CLI) | payer OTHER, SELFPAY ==
--- NOTE | 2022-07-19 16:41 | DIAB.GDFU ---
Addendum entered by Cassandra Obregon 07/19/22 16:52: new goals: Add toast to breakfast Aim for 180g per day (meals 45g, snacks 15-30g) Original Note: Follow-up Gestational Diabetes Assessment Name: Lissette Smith (Jaclyn) Date: 07/13/22 Time: 110-145p Dx: Hx of Gestational Diabetes Provider: Magali TARIK: 09/21/21 Weeks: 30 Jaclyn presents today for follow-up visit.States she has been aiming for about 30g CHO at meals and 15-20g at snacks, below SEAT COVER CUTTER for . This is evident in some of her SMBG, which some BG are <100mg/dl. Today she is wondering what is acceptable if she does have elevations (couple in a week in the low 140s previously). Anthropometrics: Ht: 61 Wt: 137# 2/6 OB visit Prepregnancy wt: 118# Physical Activity: continues with PT. Has been trying to be more active daily. Gets about 10 min walks in during weekdays and 40 min on weekends. Self-Monitoring Blood Glucose: All FBG in goal. Most recent 1 and 2 hr pc readings in range, some <100mg/dl after very low carb meal. Postprandial readings are 2 hour unless specified. One slightly elevated pc reading after lunch on 07/07. Date Pre Post Pre Post Pre Post HS 07/07 81 89 122 111 /11 86 97 1h 88 89 07/09 76 102 1h 111 1h 94 1h 07/10 86 121 1h 07/11 88 100 75 119 15 87 72 84 90 16 90 87 Diabetes Medications: None Pertinent Labs: Screen 164 Nutrition Rx: Carbohydrates: Daily: 180 Meal: 45-g lunch and dinner; 30g breakfast Snack: 15-30g Nutrition Diagnosis: Altered nutrition related lab value r/t glucose intolerance aeb recent screen and h/o GDM Inadequate CHO intake for r/t nutrition knowledge deficit aeb diet recall and pt report Intervention: This participant was very receptive. Provided appropriate educational handouts. Discussed the following topics: Recent blood sugar results Encouraged consistent moderate CHO intake at meals Review of macronutrient recommendations during Reviewed the focus is on trends and not just single readings Benefits of moderate CHO intake for baby Goals: Add carbs back in moderation- in progress Cont checking BG- met Exercise 3 days per week for 30-45 mins- 75% met Follow-up: JHONNY ECKERT follow-up in 2 weeks Cassandra Obregon RDN, TOMEKA Certified Diabetes Care and Tank Storage Supervisor T: [phone] F: [phone] [email or web address] Thank you for this referral
== END ==
PROVIDERS: PCP Registered Nurse Diabetes Educator; Referring Provider Obstetrics & Gynecology; Visit Provider Obstetrics & Gynecology
DX: O26.893 Other specified pregnancy related conditions, third trimester (principal); Z3A.30 30 weeks gestation of pregnancy; Z86.32 Personal history of gestational diabetes
CPT/HCPCS: 97803

== ENCOUNTER 2022-07-17 15:44 | Outpatient (CLI) | payer OTHER, SELFPAY | END 2022-07-17 16:45 | disposition home or self-care (01) | LOC: LABOR 16:06 → OB 07-20 13:47 | PROVIDERS: PCP Registered Nurse Diabetes Educator; Referring Provider Obstetrics & Gynecology; Visit Provider Obstetrics & Gynecology | DX: O24.419 Gestational diabetes mellitus in pregnancy, unspecified control (principal); O43.893 Other placental disorders, third trimester; Z3A.30 30 weeks gestation of pregnancy | CPT/HCPCS: 59025; G0378; G0379 ==

== ENCOUNTER 2022-07-24 12:06 | Outpatient (CLI) | payer OTHER, SELFPAY | END 2022-07-24 12:50 | disposition home or self-care (01) | LOC: LABOR 12:13 → OB 07-26 06:59 | PROVIDERS: PCP Registered Nurse Diabetes Educator; Referring Provider Obstetrics & Gynecology; Visit Provider Obstetrics & Gynecology | DX: O24.419 Gestational diabetes mellitus in pregnancy, unspecified control (principal); O43.893 Other placental disorders, third trimester; Z3A.31 31 weeks gestation of pregnancy | CPT/HCPCS: 59025; G0378; G0379 ==

== ENCOUNTER 2022-07-26 07:30 | Outpatient (RCR) | payer OTHER, SELFPAY ==
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
--- NOTE | 2022-03-29 21:59 | PT.OPPOC ---
Physical, Occupational & Speech Therapy At [facility] Current Diagnoses Other specified disorders of muscle (03/29/22) Unspecified urinary incontinence (03/29/22) Encounter for supervision of other normal , first trimester (03/29/22) Visit Care Team Role Provider Type LEATHA Cobos Primary Care Provider Advanced Project Manager/Team Coach Specialty: Medical Address: [address] [place] [address] Email: [email or web address] Lissette De Los Santos MD Attending Provider Physician Referring Provider Specialty: Gynecology CISCO ENGINEER Obstetrics Address: [address] [place] [address], [id number] Email: [email or web address] Plan Of Care PT-OP-T Assessment and Plan Start: 03/28/22 15:26 Freq: Status: Active Protocol: Document 03/29/22 07:30 AMB (Rec: 03/30/22 21:57 AMB [id number]) Physical Therapy Assessment Rehab Potential Rehabilitation Potential Good Evaluation Complexity Number of Personal Factors/Comorbidities 1-2 Number of Body Systems Impaired 1-2 Clinical Presentation at Evaluation Stable Impairments Impairments Functional Activities,Strength Goals Two Short Term Goal (STG) Jaclyn will go for a one mile walk without leaking urine. STG Duration 5 weeks Wrapper Sheeter Goal (LTG) Jaclyn will cough without leaking urine. LTG Duration 10 weeks One Impairment Pelvic floor strength Short Term Goal (STG) Jaclyn will contract her pelvic floor for 10 seconds. STG Duration 5 weeks Wrapper Sheeter Goal (LTG) Jaclyn will contract her pelvic floor while moving from sit to stand. LTG Duration 10 weeks Assessment Summary Assessment Jaclyn attends physical therapy 15 weeks with mixed urinary incontinence which started 2 years ago after her first vaginal . She did show very mild cystocele and was able to contract her pelvic floor on biofeedback, but would benefit from further strengthening. Physical Therapy Plan Frequency and Duration Frequency of Treatment 1x/Week Duration of treatment (weeks) 10 Plan of Care Start Date 03/29/22 Plan of Care End Date 06/07/22 Therapeutic Interventions Therapeutic Interventions Home Exercise Program,Manual Therapy,Neuromuscular Re- education,Self-Care/Home Management,Therapeutic Activities,Therapeutic Exercises Modalities Biofeedback Next Visit Focus/Plan Next Note Type Treatment Note Next Visit Plan Continue with sEMG and progressive strengthening, review urgency Plan of Care Dates Plan of Care Start Date 03/29/22 Plan of Care End Date 06/07/22 Electronically Signed by: Daniella Jasso, PT 03/30/22 3084 If you are in agreement with this Plan of Care, please return a signed and dated copy. I have reviewed this Plan of Care and certify that the skilled therapy services above are required to meet the patient?s needs. Physician Signature Date Printed Name and Credentials Clinical Instructor Signature Printed Name and Credentials
[2022-04-04 14:50] LABS: Urine N gonorrhoeae NOT DETECTED
[2022-04-04 15:03] LABS: Urine Chlamydia NOT DETECTED
--- NOTE | 2022-04-05 09:00 | PT.OTN ---
Current Diagnoses Other specified disorders of muscle (04/05/22) Unspecified urinary incontinence (04/05/22) Encounter for supervision of other normal , first trimester (04/05/22) Physical Therapy Treatment Note PT-OP-A Visit Information Start: 03/28/22 15:26 Freq: Status: Active Protocol: Document 04/05/22 08:24 AMB (Rec: 04/05/22 09:01 AMB [id number]) Out-Patient Physical Therapy Visit Information Visit Information Visit Type Treatment Note Visit Start Time 07:30 Visit Stop Time 08:15 Total Visit Minutes 45 Visit Number 2 PT-OP-B Current Condition Start: 03/28/22 15:26 Freq: Status: Active Protocol: Document 03/29/22 07:35 AMB (Rec: 03/29/22 08:17 AMB [id number]) Current Condition History of Current Condition Onset Date Jan 2020 Current Complaints stress/urgency urinary incontinence History of Current Condition January 2020 had daughter, did do pelvic floor PT for about 6 months- leaking post . Vaginal delivery and placenta had to be manually delivered. 20 minutes of pushing, was induced, no significant tearing. Exercise related, cough sneeze and urgency . Currently , due in August. Starting around 10 weeks noticed sx is worsening now currently 15 weeks . Large leaks with sneezes. Light incontinence pad, also wears when going out of the house or on walks. Doesn't feel like she's fully emptying . Does kegels but doesn't feel strong any more. Can only hold for 6 seconds. Personal Factors Other Personal Factors That May Effect Currently Therapy/Recovery PT-OP-C Subjective Start: 03/28/22 15:26 Freq: Status: Active Protocol: Document 04/05/22 08:24 AMB (Rec: 04/05/22 09:01 AMB [id number]) OP-PT Subjective Patient Comments Patient Comments Jaclyn PT-OP-I Pelvic Floor Start: 03/28/22 15:26 Freq: Status: Active Protocol: Document 03/29/22 07:30 AMB (Rec: 03/29/22 11:13 AMB [id number]) Pelvic Floor Assessment Urine Pelvic Floor Surgery No Urinary Symptoms Urge Sensation,Dribbling After Urination Leakage Size Medium Leakage Cause Cough,Exercise,Sneeze,Urge Other Leakage Causes feels like leaking small amounts Leaks Per Day many Urine Pad Type Panty Liner Bowel [place] Stool Chart Type 1-7 3 Prolapse Cystocele Grade 1 Prolapse Comments no subjective feeling of heaviness Perineal Descent Resting Absent Bearing Absent SEMG (uV) Baseline 2 Quick Contraction 15 10 Second Contraction 7 Recruitment Pattern Good Relaxation Fair Holding Good Stability of Hold Good SEMG Stability of Rest Fair PT-OP-Q Treatments Start: 03/28/22 15:26 Freq: Status: Active Protocol: Document 04/05/22 08:15 AMB (Rec: 04/07/22 08:12 AMB [id number]) Therapeutic Exercises Sitting Exercises sit to stand Comments cued pelvic floor first very challenging 1 Sitting Exercise Name roll in roll out Resistance #3 band Reps/Minutes 2x10 ea Comments cue breath Standing Exercises mini squat Reps/Minutes 2x10 Comments very small Neuro Re-Education Treatment Other Activities sEMG Details see assessment section Comments pt struggled more with quick flicks than long holds PT-OP-T Assessment and Plan Start: 03/28/22 15:26 Freq: Status: Active Protocol: Document 04/05/22 08:24 AMB (Rec: 04/05/22 09:01 AMB [id number]) Physical Therapy Assessment Goals Two Short Term Goal (STG) Jaclyn will go for a one mile walk without leaking urine. STG Duration 5 weeks Special Education Tutor Goal (LTG) Jaclyn will cough without leaking urine. LTG Duration 10 weeks One Impairment Pelvic floor strength Short Term Goal (STG) Jaclyn will contract her pelvic floor for 10 seconds. STG Duration 5 weeks [employer] Education Tutor Goal (LTG) Jaclyn will contract her pelvic floor while moving from sit to stand. LTG Duration 10 weeks Assessment Summary Assessment Max 25, avg 12, baseline 1 for long holds. quick flicks avg 11, Physical Therapy Plan Frequency and Duration Frequency of Treatment 1x/Week Duration of treatment (weeks) 10 Plan of Care Start Date 03/29/22 Plan of Care End Date 06/07/22 Therapeutic Interventions Therapeutic Interventions Home Exercise Program,Manual Therapy,Neuromuscular Re- education,Self-Care/Home Management,Therapeutic Activities,Therapeutic Exercises Modalities Biofeedback Next Visit Focus/Plan Next Note Type Treatment Note Next Visit Plan Continue with sEMG and progressive strengthening, review urgency
--- NOTE | 2022-04-12 13:02 | PT.OTN ---
Current Diagnoses Other specified disorders of muscle (04/12/22) Unspecified urinary incontinence (04/12/22) Encounter for supervision of other normal , first trimester (04/12/22) Physical Therapy Treatment Note PT-OP-A Visit Information Start: 03/28/22 15:26 Freq: Status: Active Protocol: Document 04/12/22 08:15 AMB (Rec: 04/12/22 09:05 AMB [id number]) Out-Patient Physical Therapy Visit Information Visit Information Visit Type Treatment Note Visit Start Time 08:15 Visit Stop Time 09:00 Total Visit Minutes 45 Visit Number 3 PT-OP-B Current Condition Start: 03/28/22 15:26 Freq: Status: Active Protocol: Document 03/29/22 07:35 AMB (Rec: 03/29/22 08:17 AMB [id number]) Current Condition History of Current Condition Onset Date Jan 2020 Current Complaints stress/urgency urinary incontinence History of Current Condition January 2020 had daughter, did do pelvic floor PT for about 6 months- leaking post . Vaginal delivery and placenta had to be manually delivered. 20 minutes of pushing, was induced, no significant tearing. Exercise related, cough sneeze and urgency . Currently , due in August. Starting around 10 weeks noticed sx is worsening now currently 15 weeks . Large leaks with sneezes. Light incontinence pad, also wears when going out of the house or on walks. Doesn't feel like she's fully emptying . Does kegels but doesn't feel strong any more. Can only hold for 6 seconds. Personal Factors Other Personal Factors That May Effect Currently Therapy/Recovery PT-OP-C Subjective Start: 03/28/22 15:26 Freq: Status: Active Protocol: Document 04/12/22 08:15 AMB (Rec: 04/12/22 09:05 AMB [id number]) OP-PT Subjective Patient Comments Patient Comments Did a 5 mile hike on Sunday and did notice a little bit of leaking with that, but nothing huge. Was able to incorporate kegels into exercises. PT-OP-I Pelvic Floor Start: 03/28/22 15:26 Freq: Status: Active Protocol: Document 03/29/22 07:30 AMB (Rec: 03/29/22 11:13 AMB [id number]) Pelvic Floor Assessment Urine Pelvic Floor Surgery No Urinary Symptoms Urge Sensation,Dribbling After Urination Leakage Size Medium Leakage Cause Cough,Exercise,Sneeze,Urge Other Leakage Causes feels like leaking small amounts Leaks Per Day many Urine Pad Type Panty Liner Bowel [place] Stool Chart Type 1-7 3 Prolapse Cystocele Grade 1 Prolapse Comments no subjective feeling of heaviness Perineal Descent Resting Absent Bearing Absent SEMG (uV) Baseline 2 Quick Contraction 15 10 Second Contraction 7 Recruitment Pattern Good Relaxation Fair Holding Good Stability of Hold Good SEMG Stability of Rest Fair PT-OP-Q Treatments Start: 03/28/22 15:26 Freq: Status: Active Protocol: Document 04/12/22 08:15 AMB (Rec: 04/12/22 09:05 AMB [id number]) Gym Equipment Shuttle Recovery Bilateral Squats Details squat jumps Resistance 25# Reps/Time 10 min Therapeutic Exercises Sitting Exercises sit to stand Comments cued pelvic floor first very challenging 1 Sitting Exercise Name roll in roll out Resistance #3 band Reps/Minutes 2x10 ea Comments cue breath Standing Exercises mini lunge Reps/Minutes 2x10 mini squat Reps/Minutes 2x10 Comments very small Self-Care/Home Management Treatment Education Other Education Progression of return to running post . PT-OP-T Assessment and Plan Start: 03/28/22 15:26 Freq: Status: Active Protocol: Document 04/12/22 08:15 AMB (Rec: 04/12/22 09:05 AMB [id number]) Physical Therapy Assessment Goals Two Short Term Goal (STG) Jaclyn will go for a one mile walk without leaking urine. STG Duration 5 weeks [employer] Goal (LTG) Jaclyn will cough without leaking urine. LTG Duration 10 weeks One Impairment Pelvic floor strength Short Term Goal (STG) Jaclyn will contract her pelvic floor for 10 seconds. STG Duration 5 weeks [employer] Goal (LTG) Jaclyn will contract her pelvic floor while moving from sit to stand. LTG Duration 10 weeks Assessment Summary Assessment Jaclyn is doing well with her exercises although continues to have low level of leaking with activity. Time spent discussing PT plan and importance of even small amounts of progress. Physical Therapy Plan Frequency and Duration Frequency of Treatment 1x/Week Duration of treatment (weeks) 10 Plan of Care Start Date 03/29/22 Plan of Care End Date 06/07/22 Therapeutic Interventions Therapeutic Interventions Home Exercise Program,Manual Therapy,Neuromuscular Re- education,Self-Care/Home Management,Therapeutic Activities,Therapeutic Exercises Modalities Biofeedback Next Visit Focus/Plan Next Note Type Treatment Note Next Visit Plan Continue with sEMG and progressive strengthening, review urgency
--- NOTE | 2022-04-19 13:00 | PT.OTN ---
Current Diagnoses Other specified disorders of muscle (04/19/22) Unspecified urinary incontinence (04/19/22) Encounter for supervision of other normal , first trimester (04/19/22) Physical Therapy Treatment Note PT-OP-A Visit Information Start: 03/28/22 15:26 Freq: Status: Active Protocol: Document 04/19/22 08:24 AMB (Rec: 04/19/22 09:02 AMB [id number]) Out-Patient Physical Therapy Visit Information Visit Information Visit Type Treatment Note Visit Start Time 08:20 Visit Stop Time 09:00 Total Visit Minutes 45 Visit Number 4 PT-OP-B Current Condition Start: 03/28/22 15:26 Freq: Status: Active Protocol: Document 03/29/22 07:35 AMB (Rec: 03/29/22 08:17 AMB [id number]) Current Condition History of Current Condition Onset Date Jan 2020 Current Complaints stress/urgency urinary incontinence History of Current Condition January 2020 had daughter, did do pelvic floor PT for about 6 months- leaking post . Vaginal delivery and placenta had to be manually delivered. 20 minutes of pushing, was induced, no significant tearing. Exercise related, cough sneeze and urgency . Currently , due in August. Starting around 10 weeks noticed sx is worsening now currently 15 weeks . Large leaks with sneezes. Light incontinence pad, also wears when going out of the house or on walks. Doesn't feel like she's fully emptying . Does kegels but doesn't feel strong any more. Can only hold for 6 seconds. Personal Factors Other Personal Factors That May Effect Currently Therapy/Recovery PT-OP-C Subjective Start: 03/28/22 15:26 Freq: Status: Active Protocol: Document 04/19/22 08:24 AMB (Rec: 04/19/22 09:02 AMB [id number]) OP-PT Subjective Patient Comments Patient Comments Majority of the time when she coughs she still leaks PT-OP-I Pelvic Floor Start: 03/28/22 15:26 Freq: Status: Active Protocol: Document 03/29/22 07:30 AMB (Rec: 03/29/22 11:13 AMB [id number]) Pelvic Floor Assessment Urine Pelvic Floor Surgery No Urinary Symptoms Urge Sensation,Dribbling After Urination Leakage Size Medium Leakage Cause Cough,Exercise,Sneeze,Urge Other Leakage Causes feels like leaking small amounts Leaks Per Day many Urine Pad Type Panty Liner Bowel [place] Stool Chart Type 1-7 3 Prolapse Cystocele Grade 1 Prolapse Comments no subjective feeling of heaviness Perineal Descent Resting Absent Bearing Absent SEMG (uV) Baseline 2 Quick Contraction 15 10 Second Contraction 7 Recruitment Pattern Good Relaxation Fair Holding Good Stability of Hold Good SEMG Stability of Rest Fair PT-OP-Q Treatments Start: 03/28/22 15:26 Freq: Status: Active Protocol: Document 04/19/22 12:47 AMB (Rec: 04/19/22 13:00 AMB [id number]) Therapeutic Exercises Supine Exercises with legs elevated Supine Exercise Name quick flicks and long holds Reps/Minutes 10 min Sitting Exercises sit to stand Comments cued pelvic floor first very challenging 1 Sitting Exercise Name roll in roll out Resistance #3 band Reps/Minutes 2x10 ea Comments cue breath Standing Exercises mini lunge Reps/Minutes 2x10 mini squat Reps/Minutes 2x10 Comments very small Other Exercises plank Other Exercise Name pt wondering about diastasis recti Comments no coning noted PT-OP-T Assessment and Plan Start: 03/28/22 15:26 Freq: Status: Active Protocol: Document 04/19/22 12:47 AMB (Rec: 04/19/22 13:00 AMB [id number]) Physical Therapy Assessment Goals Two Short Term Goal (STG) Jaclyn will go for a one mile walk without leaking urine. STG Duration 5 weeks [employer]p [employer] Goal (LTG) Jaclyn will cough without leaking urine. LTG Duration 10 weeks One Impairment Pelvic floor strength Short Term Goal (STG) Jaclyn will contract her pelvic floor for 10 seconds. STG Duration 5 weeks Group Home Goal (LTG) Jaclyn will contract her pelvic floor while moving from sit to stand. LTG Duration 10 weeks Assessment Summary Assessment Jaclyn did have 2 finger width diastasis above umbilicus but no coning with plank. Encouraged pt to be mindful of back pain and to modify exercises if they start causing that. Physical Therapy Plan Frequency and Duration Frequency of Treatment 1x/Week Duration of treatment (weeks) 10 Plan of Care Start Date 03/29/22 Plan of Care End Date 06/07/22 Therapeutic Interventions Therapeutic Interventions Home Exercise Program,Manual Therapy,Neuromuscular Re- education,Self-Care/Home Management,Therapeutic Activities,Therapeutic Exercises Modalities Biofeedback Next Visit Focus/Plan Next Note Type Treatment Note Next Visit Plan Continue with sEMG and progressive strengthening, review urgency
--- NOTE | 2022-04-28 15:36 | PT.OTN ---
Current Diagnoses Other specified disorders of muscle (04/28/22) Unspecified urinary incontinence (04/28/22) Encounter for supervision of other normal , first trimester (04/28/22) Physical Therapy Treatment Note PT-OP-A Visit Information Start: 03/28/22 15:26 Freq: Status: Active Protocol: Document 04/28/22 07:34 AMB (Rec: 04/28/22 08:18 AMB [id number]) Out-Patient Physical Therapy Visit Information Visit Information Visit Type Treatment Note Visit Start Time 07:30 Visit Stop Time 08:15 Total Visit Minutes 45 Visit Number 5 PT-OP-B Current Condition Start: 03/28/22 15:26 Freq: Status: Active Protocol: Document 03/29/22 07:35 AMB (Rec: 03/29/22 08:17 AMB [id number]) Current Condition History of Current Condition Onset Date Jan 2020 Current Complaints stress/urgency urinary incontinence History of Current Condition January 2020 had daughter, did do pelvic floor PT for about 6 months- leaking post . Vaginal delivery and placenta had to be manually delivered. 20 minutes of pushing, was induced, no significant tearing. Exercise related, cough sneeze and urgency . Currently , due in August. Starting around 10 weeks noticed sx is worsening now currently 15 weeks . Large leaks with sneezes. Light incontinence pad, also wears when going out of the house or on walks. Doesn't feel like she's fully emptying . Does kegels but doesn't feel strong any more. Can only hold for 6 seconds. Personal Factors Other Personal Factors That May Effect Currently Therapy/Recovery PT-OP-C Subjective Start: 03/28/22 15:26 Freq: Status: Active Protocol: Document 04/28/22 07:34 AMB (Rec: 04/28/22 08:18 AMB [id number]) OP-PT Subjective Patient Comments Patient Comments Did have a bit of a cold, was leaking about 50% of the time with colds. PT-OP-I Pelvic Floor Start: 03/28/22 15:26 Freq: Status: Active Protocol: Document 03/29/22 07:30 AMB (Rec: 03/29/22 11:13 AMB [id number]) Pelvic Floor Assessment Urine Pelvic Floor Surgery No Urinary Symptoms Urge Sensation,Dribbling After Urination Leakage Size Medium Leakage Cause Cough,Exercise,Sneeze,Urge Other Leakage Causes feels like leaking small amounts Leaks Per Day many Urine Pad Type Panty Liner Bowel [place] Stool Chart Type 1-7 3 Prolapse Cystocele Grade 1 Prolapse Comments no subjective feeling of heaviness Perineal Descent Resting Absent Bearing Absent SEMG (uV) Baseline 2 Quick Contraction 15 10 Second Contraction 7 Recruitment Pattern Good Relaxation Fair Holding Good Stability of Hold Good SEMG Stability of Rest Fair PT-OP-Q Treatments Start: 03/28/22 15:26 Freq: Status: Active Protocol: Document 04/28/22 07:34 AMB (Rec: 04/28/22 08:18 AMB [id number]) Therapeutic Exercises Sitting Exercises sit to stand Comments cued pelvic floor first very challenging Standing Exercises mini lunge Reps/Minutes 2x10 mini squat Reps/Minutes 2x10 Comments very small Other Exercises quadruped Other Exercise Name UE extension Reps/Minutes 2x10 Comments with pelvic floor contraction PT-OP-T Assessment and Plan Start: 03/28/22 15:26 Freq: Status: Active Protocol: Document 04/28/22 07:34 AMB (Rec: 04/28/22 08:18 AMB [id number]) Physical Therapy Assessment Goals Two Short Term Goal (STG) Jaclyn will go for a one mile walk without leaking urine. STG Duration 5 weeks [employer] Goal (LTG) Jaclyn will cough without leaking urine. LTG Duration 10 weeks One Impairment Pelvic floor strength Short Term Goal (STG) Jaclyn will contract her pelvic floor for 10 seconds. STG Duration 5 weeks [employer] Goal (LTG) Jaclyn will contract her pelvic floor while moving from sit to stand. LTG Duration 10 weeks Assessment Summary Assessment Jaclyn is feeling more symptomatic this week with not being able to exercise and coughing more with a cold. Encouraged as cold sx resolve should return to previous level of function. Physical Therapy Plan Frequency and Duration Frequency of Treatment 1x/Week Duration of treatment (weeks) 10 Plan of Care Start Date 03/29/22 Plan of Care End Date 06/07/22 Therapeutic Interventions Therapeutic Interventions Home Exercise Program,Manual Therapy,Neuromuscular Re- education,Self-Care/Home Management,Therapeutic Activities,Therapeutic Exercises Modalities Biofeedback Next Visit Focus/Plan Next Note Type Treatment Note Next Visit Plan Continue with sEMG and progressive strengthening, review urgency
--- NOTE | 2022-05-05 08:26 | PT.OTN ---
Current Diagnoses Other specified disorders of muscle (05/05/22) Unspecified urinary incontinence (05/05/22) Encounter for supervision of other normal , first trimester (05/05/22) Physical Therapy Treatment Note PT-OP-A Visit Information Start: 03/28/22 15:26 Freq: Status: Active Protocol: Document 05/05/22 07:31 AMB (Rec: 05/05/22 08:26 AMB [id number]) Out-Patient Physical Therapy Visit Information Visit Information Visit Type Treatment Note Visit Start Time 07:30 Visit Stop Time 08:15 Total Visit Minutes 45 Visit Number 6 PT-OP-B Current Condition Start: 03/28/22 15:26 Freq: Status: Active Protocol: Document 03/29/22 07:35 AMB (Rec: 03/29/22 08:17 AMB [id number]) Current Condition History of Current Condition Onset Date Jan 2020 Current Complaints stress/urgency urinary incontinence History of Current Condition January 2020 had daughter, did do pelvic floor PT for about 6 months- leaking post . Vaginal delivery and placenta had to be manually delivered. 20 minutes of pushing, was induced, no significant tearing. Exercise related, cough sneeze and urgency . Currently , due in August. Starting around 10 weeks noticed sx is worsening now currently 15 weeks . Large leaks with sneezes. Light incontinence pad, also wears when going out of the house or on walks. Doesn't feel like she's fully emptying . Does kegels but doesn't feel strong any more. Can only hold for 6 seconds. Personal Factors Other Personal Factors That May Effect Currently Therapy/Recovery PT-OP-C Subjective Start: 03/28/22 15:26 Freq: Status: Active Protocol: Document 05/05/22 07:31 AMB (Rec: 05/05/22 08:26 AMB [id number]) OP-PT Subjective Patient Comments Patient Comments Continues to not be feeling like she's doing super well. PT-OP-I Pelvic Floor Start: 03/28/22 15:26 Freq: Status: Active Protocol: Document 03/29/22 07:30 AMB (Rec: 03/29/22 11:13 AMB [id number]) Pelvic Floor Assessment Urine Pelvic Floor Surgery No Urinary Symptoms Urge Sensation,Dribbling After Urination Leakage Size Medium Leakage Cause Cough,Exercise,Sneeze,Urge Other Leakage Causes feels like leaking small amounts Leaks Per Day many Urine Pad Type Panty Liner Bowel [place] Stool Chart Type 1-7 3 Prolapse Cystocele Grade 1 Prolapse Comments no subjective feeling of heaviness Perineal Descent Resting Absent Bearing Absent SEMG (uV) Baseline 2 Quick Contraction 15 10 Second Contraction 7 Recruitment Pattern Good Relaxation Fair Holding Good Stability of Hold Good SEMG Stability of Rest Fair PT-OP-Q Treatments Start: 03/28/22 15:26 Freq: Status: Active Protocol: Document 05/05/22 07:31 AMB (Rec: 05/05/22 08:26 AMB [id number]) Gym Equipment Shuttle Recovery Bilateral Squats Details squat jumps Resistance 50# Reps/Time 10 min Therapeutic Exercises Sitting Exercises sit to stand Comments cued pelvic floor first very challenging Neuro Re-Education Treatment Other Activities sEMG Comments see assessment section, pt similar to one month ago PT-OP-T Assessment and Plan Start: 03/28/22 15:26 Freq: Status: Active Protocol: Document 05/05/22 07:31 AMB (Rec: 05/05/22 08:26 AMB [id number]) Physical Therapy Assessment Goals Two Short Term Goal (STG) Jaclyn will go for a one mile walk without leaking urine. STG Duration 5 weeks Checkering Machine Operator Goal (LTG) Jaclyn will cough without leaking urine. LTG Duration 10 weeks One Impairment Pelvic floor strength Short Term Goal (STG) Jaclyn will contract her pelvic floor for 10 seconds. STG Duration 5 weeks Checkering Machine Operator Goal (LTG) Jaclyn will contract her pelvic floor while moving from sit to stand. LTG Duration 10 weeks Assessment Summary Assessment Pt has been more diligent with exercises this week, still feeling more leaking. Avg 13. 7 and max 23.4 with long holds . quick flicks 20 max, avg 12 . Physical Therapy Plan Frequency and Duration Frequency of Treatment 1x/Week Duration of treatment (weeks) 10 Plan of Care Start Date 03/29/22 Plan of Care End Date 06/07/22 Therapeutic Interventions Therapeutic Interventions Home Exercise Program,Manual Therapy,Neuromuscular Re- education,Self-Care/Home Management,Therapeutic Activities,Therapeutic Exercises Modalities Biofeedback Next Visit Focus/Plan Next Note Type Treatment Note Next Visit Plan HEP over 3 week break
--- NOTE | 2022-05-12 14:15 | PT.OTN ---
Current Diagnoses Other specified disorders of muscle (05/12/22) Unspecified urinary incontinence (05/12/22) Encounter for supervision of other normal , first trimester (05/12/22) Physical Therapy Treatment Note PT-OP-A Visit Information Start: 03/28/22 15:26 Freq: Status: Active Protocol: Document 05/12/22 07:34 AMB (Rec: 05/12/22 08:59 AMB [id number]) Out-Patient Physical Therapy Visit Information Visit Information Visit Type Treatment Note Visit Start Time 07:30 Visit Stop Time 08:15 Total Visit Minutes 45 Visit Number 7 PT-OP-B Current Condition Start: 03/28/22 15:26 Freq: Status: Active Protocol: Document 03/29/22 07:35 AMB (Rec: 03/29/22 08:17 AMB [id number]) Current Condition History of Current Condition Onset Date Jan 2020 Current Complaints stress/urgency urinary incontinence History of Current Condition January 2020 had daughter, did do pelvic floor PT for about 6 months- leaking post . Vaginal delivery and placenta had to be manually delivered. 20 minutes of pushing, was induced, no significant tearing. Exercise related, cough sneeze and urgency . Currently , due in August. Starting around 10 weeks noticed sx is worsening now currently 15 weeks . Large leaks with sneezes. Light incontinence pad, also wears when going out of the house or on walks. Doesn't feel like she's fully emptying . Does kegels but doesn't feel strong any more. Can only hold for 6 seconds. Personal Factors Other Personal Factors That May Effect Currently Therapy/Recovery PT-OP-C Subjective Start: 03/28/22 15:26 Freq: Status: Active Protocol: Document 05/12/22 14:09 AMB (Rec: 05/12/22 14:13 AMB [id number]) OP-PT Subjective Patient Comments Patient Comments Pt PT-OP-I Pelvic Floor Start: 03/28/22 15:26 Freq: Status: Active Protocol: Document 03/29/22 07:30 AMB (Rec: 03/29/22 11:13 AMB [id number]) Pelvic Floor Assessment Urine Pelvic Floor Surgery No Urinary Symptoms Urge Sensation,Dribbling After Urination Leakage Size Medium Leakage Cause Cough,Exercise,Sneeze,Urge Other Leakage Causes feels like leaking small amounts Leaks Per Day many Urine Pad Type Panty Liner Bowel [place] Stool Chart Type 1-7 3 Prolapse Cystocele Grade 1 Prolapse Comments no subjective feeling of heaviness Perineal Descent Resting Absent Bearing Absent SEMG (uV) Baseline 2 Quick Contraction 15 10 Second Contraction 7 Recruitment Pattern Good Relaxation Fair Holding Good Stability of Hold Good SEMG Stability of Rest Fair PT-OP-Q Treatments Start: 03/28/22 15:26 Freq: Status: Active Protocol: Document 05/12/22 14:09 AMB (Rec: 05/12/22 14:13 AMB [id number]) Therapeutic Exercises Sitting Exercises sit to stand Comments cued pelvic floor first very challenging Standing Exercises mini lunge Reps/Minutes 2x10 mini squat Reps/Minutes 2x10 Comments very small Other Exercises fire hydrant Other Exercise Name too challenging pt compensates with abs quadruped Other Exercise Name UE extension Reps/Minutes 2x10 Comments with pelvic floor contraction PT-OP-T Assessment and Plan Start: 03/28/22 15:26 Freq: Status: Active Protocol: Document 05/12/22 07:34 AMB (Rec: 05/12/22 08:59 AMB [id number]) Physical Therapy Assessment Goals Two Short Term Goal (STG) Jaclyn will go for a one mile walk without leaking urine. STG Duration 5 weeks President Ceo & Founder Goal (LTG) Jaclyn will cough without leaking urine. LTG Duration 10 weeks One Impairment Pelvic floor strength Short Term Goal (STG) Jaclyn will contract her pelvic floor for 10 seconds. STG Duration 5 weeks President Ceo & Founder Goal (LTG) Jaclyn will contract her pelvic floor while moving from sit to stand. LTG Duration 10 weeks Assessment Summary Assessment Discussed how to progress over the next 3 weeks while on vacation. Jaclyn continues to have sx that are mildly worsening with progressing , discussed pelvic tilt on peloton to avoid coccyx pain. Physical Therapy Plan Frequency and Duration Frequency of Treatment 1x/Week Duration of treatment (weeks) 10 Plan of Care Start Date 03/29/22 Plan of Care End Date 06/07/22 Therapeutic Interventions Therapeutic Interventions Home Exercise Program,Manual Therapy,Neuromuscular Re- education,Self-Care/Home Management,Therapeutic Activities,Therapeutic Exercises Modalities Biofeedback Next Visit Focus/Plan Next Note Type Progress Note
--- NOTE | 2022-06-09 16:12 | PT.OTN ---
Current Diagnoses Other specified disorders of muscle (06/09/22) Unspecified urinary incontinence (06/09/22) Encounter for supervision of other normal , first trimester (06/09/22) Physical Therapy Treatment Note PT-OP-A Visit Information Start: 03/28/22 15:26 Freq: Status: Active Protocol: Document 06/09/22 07:31 AMB (Rec: 06/09/22 08:10 AMB [id number]) Out-Patient Physical Therapy Visit Information Visit Information Visit Type Treatment Note Visit Start Time 07:30 Visit Stop Time 08:15 Total Visit Minutes 45 Visit Number 8 PT-OP-B Current Condition Start: 03/28/22 15:26 Freq: Status: Active Protocol: Document 03/29/22 07:35 AMB (Rec: 03/29/22 08:17 AMB [id number]) Current Condition History of Current Condition Onset Date Jan 2020 Current Complaints stress/urgency urinary incontinence History of Current Condition January 2020 had daughter, did do pelvic floor PT for about 6 months- leaking post . Vaginal delivery and placenta had to be manually delivered. 20 minutes of pushing, was induced, no significant tearing. Exercise related, cough sneeze and urgency . Currently , due in August. Starting around 10 weeks noticed sx is worsening now currently 15 weeks . Large leaks with sneezes. Light incontinence pad, also wears when going out of the house or on walks. Doesn't feel like she's fully emptying . Does kegels but doesn't feel strong any more. Can only hold for 6 seconds. Personal Factors Other Personal Factors That May Effect Currently Therapy/Recovery PT-OP-C Subjective Start: 03/28/22 15:26 Freq: Status: Active Protocol: Document 06/09/22 07:31 AMB (Rec: 06/09/22 08:10 AMB [id number]) OP-PT Subjective Patient Comments Patient Comments Pt reports she has had a cold and had a bad cough and was leaking with that. PT-OP-I Pelvic Floor Start: 03/28/22 15:26 Freq: Status: Active Protocol: Document 03/29/22 07:30 AMB (Rec: 03/29/22 11:13 AMB [id number]) Pelvic Floor Assessment Urine Pelvic Floor Surgery No Urinary Symptoms Urge Sensation,Dribbling After Urination Leakage Size Medium Leakage Cause Cough,Exercise,Sneeze,Urge Other Leakage Causes feels like leaking small amounts Leaks Per Day many Urine Pad Type Panty Liner Bowel [place] Stool Chart Type 1-7 3 Prolapse Cystocele Grade 1 Prolapse Comments no subjective feeling of heaviness Perineal Descent Resting Absent Bearing Absent SEMG (uV) Baseline 2 Quick Contraction 15 10 Second Contraction 7 Recruitment Pattern Good Relaxation Fair Holding Good Stability of Hold Good SEMG Stability of Rest Fair PT-OP-Q Treatments Start: 03/28/22 15:26 Freq: Status: Active Protocol: Document 06/09/22 08:15 AMB (Rec: 06/12/22 16:12 AMB [id number]) Therapeutic Exercises Standing Exercises single leg rotary squat drives Standing Exercise Name #4 t band Reps/Minutes 10 Comments cues for pelvic floor, breath mini lunge Reps/Minutes 2x10 mini squat Reps/Minutes 2x10 Comments very small PT-OP-T Assessment and Plan Start: 03/28/22 15:26 Freq: Status: Active Protocol: Document 06/09/22 07:31 AMB (Rec: 06/09/22 08:10 AMB [id number]) Physical Therapy Assessment Goals Two Short Term Goal (STG) Jaclyn will go for a one mile walk without leaking urine. STG Duration Progress made- recent set back with coughing Meat Clerk Goal (LTG) Jaclyn will cough without leaking urine. LTG Duration 10 weeks One Impairment Pelvic floor strength Short Term Goal (STG) Jaclyn will contract her pelvic floor for 10 seconds. STG Duration MET Meat Clerk Goal (LTG) Jaclyn will contract her pelvic floor while moving from sit to stand. LTG Duration MET Assessment Summary Assessment Jaclyn has met half of her PT goals, but continues to struggle with leaking with coughing. She has had a couple of bad colds with extensive coughing this . She is very motivated with her exercises. She will benefit from continued physical therapy, although it is plausible that even with her hard work during she will need to return to physical therapy after the of her second child. Physical Therapy Plan Frequency and Duration Frequency of Treatment 1x/Week Duration of treatment (weeks) 10 Plan of Care Start Date 06/09/22 Plan of Care End Date 08/18/22 Therapeutic Interventions Therapeutic Interventions Home Exercise Program,Manual Therapy,Neuromuscular Re- education,Self-Care/Home Management,Therapeutic Activities,Therapeutic Exercises Modalities Biofeedback Next Visit Focus/Plan Next Note Type Treatment Note Next Visit Plan Review new band exercise addition for pelvic floor and glut facilitation
--- NOTE | 2022-06-09 16:13 | PT.OPPOC ---
Physical, Occupational & Speech Therapy At [facility] Current Diagnoses Other specified disorders of muscle (06/09/22) Unspecified urinary incontinence (06/09/22) Encounter for supervision of other normal , first trimester (06/09/22) Visit Care Team Role Provider Type LEATHA Cobos Primary Care Provider Advanced Commercial Account Officer Specialty: Medical Address: [address] [place] [address], [id number] Email: [email or web address] Lissette De Los Santos MD Attending Provider Physician Referring Provider Specialty: Gynecology AUDIO VIDEO MECHANIC Obstetrics Address: [address] [place] [address], [id number] Email: [email or web address] Plan Of Care PT-OP-T Assessment and Plan Start: 03/28/22 15:26 Freq: Status: Active Protocol: Document 06/09/22 07:31 AMB (Rec: 06/09/22 08:10 AMB [id number]) Physical Therapy Assessment Goals Two Short Term Goal (STG) Jaclyn will go for a one mile walk without leaking urine. STG Duration Progress made- recent set back with coughing Learning Solutions Specialist Goal (LTG) Jaclyn will cough without leaking urine. LTG Duration 10 weeks One Impairment Pelvic floor strength Short Term Goal (STG) Jaclyn will contract her pelvic floor for 10 seconds. STG Duration MET Long-Term Goal (LTG) Jaclyn will contract her pelvic floor while moving from sit to stand. LTG Duration MET Assessment Summary Assessment Jaclyn has met half of her PT goals, but continues to struggle with leaking with coughing. She has had a couple of bad colds with extensive coughing this . She is very motivated with her exercises. She will benefit from continued physical therapy, although it is plausible that even with her hard work during she will need to return to physical therapy after the of her second child. Physical Therapy Plan Frequency and Duration Frequency of Treatment 1x/Week Duration of treatment (weeks) 10 Plan of Care Start Date 06/09/22 Plan of Care End Date 08/18/22 Therapeutic Interventions Therapeutic Interventions Home Exercise Program,Manual Therapy,Neuromuscular Re- education,Self-Care/Home Management,Therapeutic Activities,Therapeutic Exercises Modalities Biofeedback Next Visit Focus/Plan Next Note Type Treatment Note Next Visit Plan Review new band exercise addition for pelvic floor and glut facilitation Plan of Care Dates Plan of Care Start Date 06/09/22 Plan of Care End Date 08/18/22 Electronically Signed by: Daniella Jasso, PT 06/12/22 2546 If you are in agreement with this Plan of Care, please return a signed and dated copy. I have reviewed this Plan of Care and certify that the skilled therapy services above are required to meet the patient?s needs. Physician Signature Date Printed Name and Credentials Clinical Instructor Signature Printed Name and Credentials
--- NOTE | 2022-07-26 12:46 | PT.OTN ---
Current Diagnoses Other specified disorders of muscle (07/26/22) Unspecified urinary incontinence (07/26/22) Encounter for supervision of other normal , first trimester (07/26/22) Physical Therapy Treatment Note PT-OP-A Visit Information Start: 03/28/22 15:26 Freq: Status: Active Protocol: Document 07/26/22 07:33 AMB (Rec: 07/26/22 08:13 AMB [id number]) Out-Patient Physical Therapy Visit Information Visit Information Visit Type Treatment Note Visit Start Time 07:30 Visit Stop Time 08:15 Total Visit Minutes 45 Visit Number 9 PT-OP-B Current Condition Start: 03/28/22 15:26 Freq: Status: Active Protocol: Document 03/29/22 07:35 AMB (Rec: 03/29/22 08:17 AMB [id number]) Current Condition History of Current Condition Onset Date Jan 2020 Current Complaints stress/urgency urinary incontinence History of Current Condition January 2020 had daughter, did do pelvic floor PT for about 6 months- leaking post . Vaginal delivery and placenta had to be manually delivered. 20 minutes of pushing, was induced, no significant tearing. Exercise related, cough sneeze and urgency . Currently , due in August. Starting around 10 weeks noticed sx is worsening now currently 15 weeks . Large leaks with sneezes. Light incontinence pad, also wears when going out of the house or on walks. Doesn't feel like she's fully emptying . Does kegels but doesn't feel strong any more. Can only hold for 6 seconds. Personal Factors Other Personal Factors That May Effect Currently Therapy/Recovery PT-OP-C Subjective Start: 03/28/22 15:26 Freq: Status: Active Protocol: Document 07/26/22 07:33 AMB (Rec: 07/26/22 08:13 AMB [id number]) OP-PT Subjective Patient Comments Patient Comments Pt reports she has been leaking more. PT-OP-I Pelvic Floor Start: 03/28/22 15:26 Freq: Status: Active Protocol: Document 03/29/22 07:30 AMB (Rec: 03/29/22 11:13 AMB [id number]) Pelvic Floor Assessment Urine Pelvic Floor Surgery No Urinary Symptoms Urge Sensation,Dribbling After Urination Leakage Size Medium Leakage Cause Cough,Exercise,Sneeze,Urge Other Leakage Causes feels like leaking small amounts Leaks Per Day many Urine Pad Type Panty Liner Bowel [place] Stool Chart Type 1-7 3 Prolapse Cystocele Grade 1 Prolapse Comments no subjective feeling of heaviness Perineal Descent Resting Absent Bearing Absent SEMG (uV) Baseline 2 Quick Contraction 15 10 Second Contraction 7 Recruitment Pattern Good Relaxation Fair Holding Good Stability of Hold Good SEMG Stability of Rest Fair PT-OP-Q Treatments Start: 03/28/22 15:26 Freq: Status: Active Protocol: Document 07/26/22 07:30 AMB (Rec: 07/26/22 12:40 AMB [id number]) Therapeutic Exercises Sitting Exercises sit to stand Comments cued pelvic floor first very challenging Other Exercises quadruped Other Exercise Name UE extension Reps/Minutes 2x10 Comments with pelvic floor contraction plank Other Exercise Name pt wondering about diastasis recti Comments no coning noted PT-OP-T Assessment and Plan Start: 03/28/22 15:26 Freq: Status: Active Protocol: Document 07/26/22 07:33 AMB (Rec: 07/26/22 08:13 AMB [id number]) Physical Therapy Assessment Goals Two Short Term Goal (STG) Jaclyn will go for a one mile walk without leaking urine. STG Duration Progress made- recent set back with coughing Halfway Goal (LTG) Jaclyn will cough without leaking urine. LTG Duration 10 weeks One Impairment Pelvic floor strength Short Term Goal (STG) Jaclyn will contract her pelvic floor for 10 seconds. STG Duration MET Title Insurance Sales Representative Goal (LTG) Jaclyn will contract her pelvic floor while moving from sit to stand. LTG Duration MET Assessment Summary Assessment Jaclyn is 32 weeks , and is having to do weekly NST due to a prematurely aging placenta. She is feeling like she is ready to be done with PT until the baby is born, she 's worried it will have to be early. Discussed how to progress pelvic floor strengthening through the rest of her and the first 6 weeks of post , then once cleared by OB can return and do a re-eval. Physical Therapy Plan Frequency and Duration Frequency of Treatment 1x/Week Duration of treatment (weeks) 10 Plan of Care Start Date 06/09/22 Plan of Care End Date 08/18/22 Therapeutic Interventions Therapeutic Interventions Home Exercise Program,Manual Therapy,Neuromuscular Re- education,Self-Care/Home Management,Therapeutic Activities,Therapeutic Exercises Modalities Biofeedback Next Visit Focus/Plan Next Note Type Re-Evaluation
--- NOTE | 2022-12-27 13:58 | PT.OPDS ---
Current Diagnoses Other specified disorders of muscle (07/26/22) Unspecified urinary incontinence (07/26/22) Encounter for supervision of other normal , first trimester (07/26/22) Visit Care Team Role Provider Type LEATHA Cobos Primary Care Provider Advanced Investment Specialist Specialty: Medical Address: [address] [place] [address], [id number] Email: [email or web address] Lissette De Los Santos MD Attending Provider Physician Referring Provider Specialty: Gynecology ART M[employer] DOCENT Obstetrics Address: [address] [place] [address], [id number] Email: [email or web address] Visit Number Visit Number 9 Discharge Summary PT-OP-B Current Condition Start: 03/28/22 15:26 Freq: Status: Active Protocol: Document 03/29/22 07:35 AMB (Rec: 03/29/22 08:17 AMB [id number]) Current Condition History of Current Condition Onset Date Jan 2020 Current Complaints stress/urgency urinary incontinence History of Current Condition January 2020 had daughter, did do pelvic floor PT for about 6 months- leaking post . Vaginal delivery and placenta had to be manually delivered. 20 minutes of pushing, was induced, no significant tearing. Exercise related, cough sneeze and urgency . Currently , due in August. Starting around 10 weeks noticed sx is worsening now currently 15 weeks . Large leaks with sneezes. Light incontinence pad, also wears when going out of the house or on walks. Doesn't feel like she's fully emptying . Does kegels but doesn't feel strong any more. Can only hold for 6 seconds. Personal Factors Other Personal Factors That May Effect Currently Therapy/Recovery PT-OP-C Subjective Start: 03/28/22 15:26 Freq: Status: Active Protocol: Document 07/26/22 07:33 AMB (Rec: 07/26/22 08:13 AMB [id number]) OP-PT Subjective Patient Comments Patient Comments Pt reports she has been leaking more. PT-OP-I Pelvic Floor Start: 03/28/22 15:26 Freq: Status: Active Protocol: Document 03/29/22 07:30 AMB (Rec: 03/29/22 11:13 AMB [id number]) Pelvic Floor Assessment Urine Pelvic Floor Surgery No Urinary Symptoms Urge Sensation,Dribbling After Urination Leakage Size Medium Leakage Cause Cough,Exercise,Sneeze,Urge Other Leakage Causes feels like leaking small amounts Leaks Per Day many Urine Pad Type Panty Liner Bowel Bone [place] Stool Chart Type 1-7 3 Prolapse Cystocele Grade 1 Prolapse Comments no subjective feeling of heaviness Perineal Descent Resting Absent Bearing Absent SEMG (uV) Baseline 2 Quick Contraction 15 10 Second Contraction 7 Recruitment Pattern Good Relaxation Fair Holding Good Stability of Hold Good SEMG Stability of Rest Fair PT-OP-T Assessment and Plan Start: 03/28/22 15:26 Freq: Status: Active Protocol: Document 12/27/22 13:56 AMB (Rec: 12/27/22 13:57 AMB [id number]) Physical Therapy Assessment Assessment Summary Assessment Pt went into labor and then was sent to PT with a new referral. New eval and new account number after pt returned 6 weeks post .
== END 2022-12-28 12:02 | disposition home or self-care (01) ==
LOC: PHYS 07:30
PROVIDERS: PCP Registered Nurse Diabetes Educator; Referring Provider Obstetrics & Gynecology; Visit Provider Obstetrics & Gynecology
DX: Z34.81 Encounter for supervision of other normal pregnancy, first trimester (principal); R32 Unspecified urinary incontinence; M62.89 Other specified disorders of muscle
CPT/HCPCS: 87491; 87591; 97110; 97112; 97161; 97535

== ENCOUNTER → 2022-07-28 13:02 | Outpatient (CLI) | payer OTHER, SELFPAY ==
--- NOTE | 2022-07-28 17:22 | DIAB.GDFU ---
Follow-up Gestational Diabetes Assessment Name: Lissette Smith (Jaclyn) Date: 07/28/22 Time: 1-130p Dx: Gestational Diabetes Provider: Magali TARIK: 09/21/21 Weeks: 32 Jaclyn presents for GDM follow-up. Discussed with this RD grade 2 placenta concern. Followed closely by OB. Reports adequate glycemia management. Has included toast or grain free granola?with breakfast to get to 30 g CHO. Snacks have typically been 20-30 g CHO and 30-45 g at meals.?Seems nutrition has improved since last visit. Discussed h/o with daughter. Used support. Was able to breastfeed for >6 months. Has questions regarding GDM recommendations. Anthropometrics: Ht: 61 Wt: 140# 07/24 OB visit Prepregnancy wt: 118# Physical Activity: Plans to d/c PT. Last visit: Has been trying to be more active daily. Gets about 10 min walks in during weekdays and 40 min on weekends. Self-Monitoring Blood Glucose: Recent FB-90, usually 80-90. 1 hour pc: 110-140 in goal. States she likes checking at 1 hour over 2 hour due to feeling as though 1 hour is her highest result. Diabetes Medications: None Pertinent Labs: Screen 164 Nutrition Rx: Carbohydrates: Daily: 180 Meal: 45-g lunch and dinner; 30g breakfast Snack: 15-30g Nutrition Diagnosis: Altered nutrition related lab value r/t glucose intolerance aeb recent screen and h/o GDM Inadequate CHO intake for r/t nutrition knowledge deficit aeb diet recall and pt report- improved Intervention: This participant was very receptive. Provided appropriate educational handouts. Discussed the following topics: Recent blood sugar results Progress of increasing CHO to meet needs Review of macronutrient recommendations during Benefits, resources, and nutrition for recommendations for nutrition and physical activity recommendations for T2DM risk reduction OGTT at 6-12 weeks Potential for checking blood sugars twice per week (goal: fasting <100 mg/dL and 2 hour pc <140 mg/dL) until 6 week check-up HgA1c q 1-3 years. Goals: Add toast to breakfast- met Aim for FERTILIZER PROCESSING SUPERVISOR for CHO (45g at meals and 15-30g at snacks)- met Follow recs for A1c, OGTT, and potential for SMBG until 6 weeks - new Follow-up: RDN CDCES follow-up prn. Encouraged Jaclyn to call/message with any follow-up needs or questions. Cassandra Obregon RDN, [facility] Certified Diabetes Care and Documentation Writer T: [phone] F: [phone] [email or web address] Thank you for this referral
== END ==
PROVIDERS: PCP Registered Nurse Diabetes Educator; Visit Provider Registered Nurse Diabetes Educator
DX: O24.419 Gestational diabetes mellitus in pregnancy, unspecified control (principal); Z3A.32 32 weeks gestation of pregnancy; Z71.3 Dietary counseling and surveillance
CPT/HCPCS: 97803

== ENCOUNTER 2022-07-31 12:45 | Outpatient (CLI) | payer OTHER, SELFPAY ==
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
== END 2022-07-31 13:25 | disposition home or self-care (01) ==
LOC: LABOR 14:04 → OB 08-07 08:15
PROVIDERS: PCP Registered Nurse Diabetes Educator; Referring Provider Obstetrics & Gynecology; Visit Provider Obstetrics & Gynecology
DX: O24.410 Gestational diabetes mellitus in pregnancy, diet controlled (principal); O43.893 Other placental disorders, third trimester; Z3A.32 32 weeks gestation of pregnancy
CPT/HCPCS: 59025; 84112; G0378; G0379

== ENCOUNTER 2022-08-03 07:58 | Outpatient (CLI) | payer OTHER, SELFPAY | END 2022-08-03 08:30 | disposition home or self-care (01) | LOC: OB 08-07 08:20 | PROVIDERS: PCP Registered Nurse Diabetes Educator; Referring Provider Obstetrics & Gynecology; Visit Provider Obstetrics & Gynecology | DX: O24.419 Gestational diabetes mellitus in pregnancy, unspecified control (principal); O43.893 Other placental disorders, third trimester; Z3A.33 33 weeks gestation of pregnancy | CPT/HCPCS: 59025; G0378; G0379 ==

== ENCOUNTER 2022-08-05 18:33 | Outpatient (CLI) | payer OTHER, SELFPAY ==
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
== END 2022-08-05 19:13 | disposition home or self-care (01) ==
LOC: OB 08-10 13:07
PROVIDERS: PCP Registered Nurse Diabetes Educator; Referring Provider Obstetrics & Gynecology; Visit Provider Obstetrics & Gynecology
DX: Z03.71 Encounter for suspected problem with amniotic cavity and membrane ruled out (principal); Z3A.33 33 weeks gestation of pregnancy
CPT/HCPCS: 59025; 84112; G0378; G0379

== ENCOUNTER 2022-08-07 12:33 | Outpatient (CLI) | payer OTHER, SELFPAY ==
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
== END 2022-08-07 13:25 | disposition home or self-care (01) ==
LOC: LABOR 13:50 → OB 08-10 13:11
PROVIDERS: PCP Registered Nurse Diabetes Educator; Referring Provider Obstetrics & Gynecology; Visit Provider Obstetrics & Gynecology
DX: O24.410 Gestational diabetes mellitus in pregnancy, diet controlled (principal); O43.893 Other placental disorders, third trimester; Z3A.33 33 weeks gestation of pregnancy
CPT/HCPCS: 59025; G0378; G0379

== ENCOUNTER 2022-08-10 08:01 | Outpatient (CLI) | payer OTHER, SELFPAY ==
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
== END 2022-08-10 08:37 | disposition home or self-care (01) ==
LOC: LABOR 08:14 → OB 13:08
PROVIDERS: PCP Registered Nurse Diabetes Educator; Referring Provider Specialist; Visit Provider Specialist
DX: O24.410 Gestational diabetes mellitus in pregnancy, diet controlled (principal); O43.893 Other placental disorders, third trimester; Z3A.34 34 weeks gestation of pregnancy
CPT/HCPCS: 59025; G0378; G0379

== ENCOUNTER 2022-08-14 12:49 | Outpatient (CLI) | payer OTHER, SELFPAY ==
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
== END 2022-08-14 13:30 | disposition home or self-care (01) ==
LOC: LABOR 13:14 → OB 09-12 11:07
PROVIDERS: PCP Registered Nurse Diabetes Educator; Referring Provider Obstetrics & Gynecology; Visit Provider Specialist
DX: O24.410 Gestational diabetes mellitus in pregnancy, diet controlled (principal); O43.893 Other placental disorders, third trimester; Z3A.34 34 weeks gestation of pregnancy; Z34.82 Encounter for supervision of other normal pregnancy, second trimester
CPT/HCPCS: 59025; 84112; 87653; G0378; G0379

== ENCOUNTER → 2022-08-14 14:09 | Outpatient (CLI) | payer OTHER, SELFPAY ==
[2022-08-15 13:53] LABS: Strep Grp B PCR NEG for Grp B Strep
== END ==
PROVIDERS: PCP Registered Nurse Diabetes Educator; Visit Provider Specialist
DX: Z34.82 Encounter for supervision of other normal pregnancy, second trimester (principal); Z3A.34 34 weeks gestation of pregnancy
CPT/HCPCS: 87653

== ENCOUNTER 2022-08-17 08:05 | Outpatient (CLI) | payer OTHER, SELFPAY | END 2022-08-17 08:45 | disposition home or self-care (01) | LOC: LABOR 09:40 → OB 08-18 13:46 | PROVIDERS: PCP Registered Nurse Diabetes Educator; Referring Provider Obstetrics & Gynecology; Visit Provider Obstetrics & Gynecology | DX: O24.419 Gestational diabetes mellitus in pregnancy, unspecified control (principal); O43.893 Other placental disorders, third trimester; Z3A.35 35 weeks gestation of pregnancy | CPT/HCPCS: 59025; G0378; G0379 ==

== ENCOUNTER 2022-08-21 13:31 | Outpatient (CLI) | payer OTHER, SELFPAY ==
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
== END 2022-08-21 14:10 | disposition home or self-care (01) ==
LOC: LABOR 13:44 → OB 08-24 16:57
PROVIDERS: PCP Registered Nurse Diabetes Educator; Referring Provider Specialist; Visit Provider Specialist
DX: O24.410 Gestational diabetes mellitus in pregnancy, diet controlled (principal); O43.93 Unspecified placental disorder, third trimester; Z3A.35 35 weeks gestation of pregnancy
CPT/HCPCS: 59025; G0378; G0379

== ENCOUNTER 2022-08-24 14:00 | Outpatient (CLI) | payer OTHER, SELFPAY | END 2022-08-24 14:45 | disposition home or self-care (01) | LOC: LABOR 14:43 → OB 16:52 | PROVIDERS: PCP Registered Nurse Diabetes Educator; Referring Provider Specialist; Visit Provider Specialist | DX: O24.419 Gestational diabetes mellitus in pregnancy, unspecified control (principal); O43.893 Other placental disorders, third trimester; Z3A.36 36 weeks gestation of pregnancy | CPT/HCPCS: 59025; G0378; G0379 ==

== ENCOUNTER 2022-08-28 13:22 | Outpatient (CLI) | payer OTHER, SELFPAY | END 2022-08-28 14:13 | disposition home or self-care (01) | LOC: LABOR 13:55 → OB 09-04 08:50 | PROVIDERS: PCP Registered Nurse Diabetes Educator; Referring Provider Obstetrics & Gynecology; Visit Provider Obstetrics & Gynecology | DX: Z03.71 Encounter for suspected problem with amniotic cavity and membrane ruled out (principal); O24.419 Gestational diabetes mellitus in pregnancy, unspecified control; O43.893 Other placental disorders, third trimester; Z3A.36 36 weeks gestation of pregnancy | CPT/HCPCS: 59025; 84112; G0378; G0379 ==

== ENCOUNTER 2022-08-31 08:51 | Outpatient (CLI) | payer OTHER, SELFPAY ==
[2022-08-31] MEDS: LACTATED RINGERS 1,000 ML 1000 ML IV (12:53)
== END 2022-08-31 10:20 | disposition home or self-care (01) ==
LOC: LABOR 09:06 → OB 09-04 08:48
PROVIDERS: PCP Registered Nurse Diabetes Educator; Referring Provider Obstetrics & Gynecology; Visit Provider Obstetrics & Gynecology
DX: Z03.71 Encounter for suspected problem with amniotic cavity and membrane ruled out (principal); O24.419 Gestational diabetes mellitus in pregnancy, unspecified control; O43.893 Other placental disorders, third trimester; Z3A.37 37 weeks gestation of pregnancy
CPT/HCPCS: 59025; 84112; 96360; G0378; G0379

== ENCOUNTER 2022-09-04 12:15 | Outpatient (CLI) | payer OTHER, SELFPAY | END 2022-09-04 13:05 | disposition home or self-care (01) | LOC: LABOR 13:01 → OB 09-11 15:56 | PROVIDERS: PCP Registered Nurse Diabetes Educator; Referring Provider Obstetrics & Gynecology; Visit Provider Obstetrics & Gynecology | DX: O43.893 Other placental disorders, third trimester (principal); O24.419 Gestational diabetes mellitus in pregnancy, unspecified control; Z3A.36 36 weeks gestation of pregnancy | CPT/HCPCS: 59025; 84112; G0378; G0379 ==

== ENCOUNTER 2022-09-05 07:07 | Inpatient (IN) | payer OTHER, SELFPAY ==
[2022-09-05 07:57] LABS: Add Manual Diff / Slide Review NO; Basophils Absolute Auto 0 /uL (0-100); Basophils Percent Auto 0.4 % (0-2); Eosinophils Absolute Auto 200 /uL (0-450); Eosinophils Percent Auto 2.6 % (2-4); Hematocrit 41.3 % (36-46); Hemoglobin 14.1 g/dL (12.0-16.0); Lymphocytes Absolute Auto 1500 /uL (1100-4500); Lymphocytes Percent Auto 16.8 % (25-40); Mean Corpuscular HGB Conc 34.1 % (30-36); Mean Corpuscular Hemoglobin 30.9 PG (26-34); Mean Corpuscular Volume 90.6 fL (80-100); Monocytes Absolute Auto 500 /uL (0-900); Monocytes Percent Auto 6.2 % (3-14); Neutrophils Absolute Auto 6400 /uL (1500-7000); Platelet Count 237 X10^3/uL (150-400); Red Blood Cell Count 4.55 X10^6/uL (4.0-5.2); Red Cell Distribution Width 13.7 % (11.6-14.8); White Blood Cell Count 8.7 X10^3/uL (4.5-11.0)
[2022-09-05 08:19] VITALS: BP 112/69
[2022-09-05] MEDS: OXYTOCIN PREMIX 30 UNIT/500 ML PLAST..BAG IV (08:32)
[2022-09-05] MEDS: LACTATED RINGERS 1,000 ML 100 ML IV ×3 (08:32→20:55)
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
--- NOTE | 2022-09-05 13:02 | P.PCN_ITS ---
Regional Block Pre-procedure Procedure: Continuous Lumbar Epidural for L&D Attending OB provider: Lissette De Los Santos PMH/ROS narrative: 36-year-old at 37+5, grade 3 placenta, GDM, diet controlled, no other complications, remote history of asthma, h/o retained placenta. ASA Class: II Labs: Hct 41.3 % (36-46) 09/05/22 07:30 Plt Count 237 X10^3/uL (150-400) 09/05/22 07:30 Medications: Current Medications Generic Name Dose Route Start Last Admin Trade Name Freq PRN Reason Stop Dose Admin Calcium Carbonate 1,000 mg 09/05/22 07:46 Calcium Carbonate 500 Mg Tab PO Q4HR PRN Dyspepsia Carboprost Tromethamine 250 mcg 09/05/22 07:46 Carboprost 250 Mcg/Ml Ampul IM Q90M PRN Bleeding Diphenhydramine HCl 25 mg 09/05/22 13:01 Diphenhydramine 50 Mg/Ml Vial IV Q10M PRN Pruritis Fentanyl 50 mcg 09/05/22 07:46 Fentanyl 100 Mcg/2 Ml Inj IV Q1H PRN Pain, Moderate (4-6) Lactated Ringer's 1,000 mls @ 100 mls/hr 09/05/22 08:00 09/05/22 08:32 Lactated Ringers IV 100 mls/hr CONT CLAUDE Administration Oxytocin/Lactated Ringer's 30 unit in 500 mls @ 200 mls/hr 09/05/22 07:46 Oxytocin Premix IV CONT PRN Bleeding Protocol Oxytocin/Lactated Ringer's 30 unit in 500 mls @ 2 mls/hr 09/05/22 08:00 09/05/22 08:32 Oxytocin Premix IV 2 milliunit/min TITRATE CLAUDE 2 mls/hr Administration Protocol 2 MILLIUNIT/MIN Tranexamic Acid 1,000 mg/ 100 mls @ 200 mls/hr 09/05/22 07:46 Sodium Chloride IV NOW PRN Bleeding FENT 2MCG/ML BUPIV 0.125% EPI 200 mcg in 100 mls @ 6 mls/hr 09/05/22 13:15 Fentanyl/Bupiv/Ns 2mcg/Ml - 0.125% EPIDURAL CONT CLAUDE Methylergonovine Maleate 0.2 mg 09/05/22 07:46 Methylergonovine 0.2 Mg/Ml Vial IM NOW PRN Bleeding Methylergonovine Maleate 0.2 mg 09/05/22 07:46 Methylergonovine 0.2 Mg Tablet PO Q6HR PRN Heavy Bleeding Misoprostol 400 mcg 09/05/22 07:46 Misoprostol 200 Mcg Tablet SL NOW PRN Bleeding Misoprostol 800 mcg 09/05/22 07:46 Misoprostol 200 Mcg Tablet NV NOW PRN Bleeding Nalbuphine HCl 2.5 mg 09/05/22 13:01 Nalbuphine 20 Mg/Ml Ampul IV Q10M PRN Pruritis Naloxone HCl 0.2 mg 09/05/22 07:46 Naloxone 0.4 Mg/Ml Vial IV Q2MIN PRN Opiate Reversal Ondansetron HCl 4 mg 09/05/22 07:46 Ondansetron 4 Mg/2 Ml Inj IV Q4HR PRN Nausea And Vomiting Oxytocin 10 unit 09/05/22 07:46 Oxytocin 10 Unit/Ml Vial IM NOW PRN Bleeding Allergies: Allergies Allergy/AdvReac Type Severity Reaction Status Date / Time cat dander Allergy Intermediate Minor Verified 09/05/22 08:58 asthmatic reaction and classic allergic reaction horse dander Allergy Intermediate Classic Verified 09/05/22 08:58 allergic reaction Melons Allergy Intermediate Hives : Uncoded 09/05/22 08:58 originated pre-puberty Procedure Insertion date: 09/05/22 Insertion time: 13:27 Prep/Local: betadine x3 and 1% lidocaine Interspace: L3-4 Patient position: sitting Needle: 18 gauge [facility] (CSE: 27g Pencan through Hustead, clear CSF, 2.5mg MPF bupiv) Loss of resistance with: saline CARLO at (cm): 4 Catheter placed at SKIN (cm): 10 Catheter in SPACE (cm): 5 Insertion: No CSF, No Blood, No Paresthesia with insertion, No Paresthesia with injection and No Test dose reaction Initial Medications TEST DOSE time: 13:29 TEST DOSE: 1.5% lidocaine with epinephrine 1:200k (mL): 3 BOLUS DOSE time: 13:40 BOLUS DOSE (mL): 4 BOLUS DOSE med: other (infusate) Infusion INFUSION: 0.125% bupivacaine and with fentanyl 2 mcg/mL Initial rate (mL/hr): 6 Subsequent interventions: PCEA@6+4. To OR post- for retained placenta. Epidural anesthesia. Catheter removed after procedure, tip intact. Post-procedure Anesthesia time START: 13:15 Anesthesia time END: 17:59 Post-procedure Anesthesia Assessment: Yes CV function: HR/BP stable, Yes Resp function: RR/sat/airway adequate, Yes Post-op hydration adequate, Yes Pain control adequate, Yes Nausea & vomiting absent, Yes Mental status appropriate and No Anesthesia complications
--- NOTE | 2022-09-05 13:44 | PM.OBPNLAB ---
Date/Time Date Patient Seen: 09/05/22 Time Patient Seen: 11:25 Pain Control Pain control: tolerating well Pelvic Exam Dilation (cm): 4 Effacement (%): 90 station: 0 Amniotic membrane status: Intact Contractions Contractions on admission: irregular Monitor mode: External Pitocin rate (mU/min): 12 Contraction frequency (min): 4 Contraction duration (min): 1 Contraction intensity: Mild Status status: Category l Heart Rate Baseline: 140 Monitor Accelerations: Present Monitor Decelerations: Absent Monitor Variability: Moderate Assessment and Plan Assessment: induction ongoing Comments: AROM with copious clear amniotic fluid Epidural as necessary
--- NOTE | 2022-09-05 13:46 | PM.OBPNLAB ---
Date/Time Date Patient Seen: 09/05/22 Time Patient Seen: 13:47 Pain Control Pain control: epidural (being placed) Pelvic Exam Dilation (cm): 4 Effacement (%): 90 station: 0 Amniotic membrane status: Ruptured Contractions Monitor mode: External Pitocin rate (mU/min): 3 Contraction frequency (min): 3 Contraction duration (min): 1 Contraction pattern: Regular Contraction intensity: Moderate Status status: Category l Heart Rate Baseline: 145 Monitor Accelerations: Present Monitor Decelerations: Absent Monitor Variability: Moderate Assessment and Plan Assessment: induction ongoing Plan: continuous present management Comments: Expectant management to
[2022-09-05] MEDS: FENT 2MCG/ML BUPIV 0.125% EPI 200 MCG/100 ML PLAST..BAG 6 MCG EPIDURAL (13:48)
--- NOTE | 2022-09-05 17:35 | PM.PREOP ---
Pre-operative Note COVID-19 Criteria for continued procedure: Non-surgical alternatives not available or appropriate per current SOC Interval Note History & Physical reviewed/Exam performed by Physician: Yes Changes to H&P: No H&P completed within 30 days and has changed as indicated here:: 09/05/22
--- NOTE | 2022-09-05 17:53 | PATH_ITS ---
[facility] Accession Number: [id number] No. of containers..01 Tissue . 01 Material submitted: . placenta - PLACENTA . 01 Diagnosis: Placenta, Delivery: Mature calderon placenta (244 grams), disrupted, with increased perivillous fibrin deposition and scattered calcifications. - Negative for villitis, infarction, and neoplasia. - Maternal surface cotyledons disrupted (completeness cannot be assessed). Trivascular umbilical cord; insertion site disrupted and cannot be determined. - Negative for funisitis, thrombosis, and true knots. membranes; insertion site disrupted and cannot be determined. - Negative for chorioamnionitis or meconium staining. MRV 09/11/2022 1614 Local . 01 Electronically signed: . Estelita Jennings MD, Pathologist NPI- [id number] . 01 Gross description: . The specimen is received in formalin labeled with the patient's name, , and placenta, and consists of a significantly disrupted calderon placenta with a trimmed weight of 244 grams and aggregating to 15.1 x 11.4 x 3.8 cm. Due to the disrupted nature of the specimen, accessory lobes cannot be identified. . The membranes are received detached from the placental disc and are anglin and translucent with presumed separation of amnion and chorion. No discoloration is grossly identified, and the insertion and point of rupture cannot be determined. . The cord measures 42.7 cm in length by 1.5 cm in average diameter with a leftward coil and an index of approximately two twists per 5 cm. The cord insertion is fragmented and the true insertion type cannot be accurately determined. Sectioning reveals unremarkable trivascular architecture with no knots or lesions identified. . The fragmented surface is blue-maldonado with arborizing vasculature and significant for anglin discoloration across approximately 50% of the visible surface. No additional lesions are identified. . Due to the fragmentation of the specimen maternal surface completeness cannot be determined. The maternal surface is brown with multiple pinpoint areas of discoloration consistent with calcification. No adherent hemorrhage is grossly identified. Sectioning reveals a brown, spongy cut surface with no discrete areas of discoloration or lesions identified. . Ship Laborer sections are submitted as follows: A1: Cord. A2: Membrane roll. A3: surface discolorations (possible full thickness). A4-A5: Maternal surface discolorations (possibly full thickness). A6-A8: Additional sales representative church furniture possible full thickness sections. ([id number]) /JOSE 09/07/2022 1125 Local . 01 Pathologist provided ICD-10: O43.90 . 01 CPT . 875602 Specimen Comment: A courtesy copy of this report has been sent to [phone] Performed at: 01 [facility] [address] [place] [address] [address] [facility], [place], [place] [id number] MD Cordell Bentley MD Phone: [phone]
[2022-09-05] MEDS: CEFAZOLIN 2 GM/100 ML PREMIX 100 ML IV (18:01)
--- NOTE | 2022-09-05 18:26 | SUR.OPER ---
Lithotomy on padded OR bed, head on pillow, arms secured on padded arm boards at <90 degrees abduction. Legs secured in padded yellow fins stirrups.
[2022-09-05 19:00] VITALS: BP 120/79; PULSE 88; RESP 13; TEMP 36.5; O2SAT 100
[2022-09-05 19:06] VITALS: BP 127/77; PULSE 106; RESP 14; TEMP 36.5; O2SAT 100
[2022-09-05 19:09] LABS: Hematocrit 35.8 % (36-46); Hemoglobin 12.1 g/dL (12.0-16.0)
[2022-09-05 19:12] VITALS: BP 110/74; PULSE 87; RESP 14; TEMP 36.3; O2SAT 100
--- NOTE | 2022-09-05 19:15 | PM.OBPRVD ---
Events: Gestational Diabetes (diet-controlled) and Other (Aged placenta) Labor & Delivery Delivery date: 09/05/22 Intrapartal Events: None Cervical ripening method: none Induction method: per pitocin protocol Delivery augmentation: rupture of membranes Delivery monitor: external FHT and external uterine Route of delivery: Episiotomy description: None L&D Laceration Description: Perineal - 1st Degree and Vaginal - 1st Degree Delivery repair: chromic Quantitative Blood Loss: 400 Anesthesia Type: Epidural Complications: Retained placenta Narrative: Patient complete and pushed for 25 minutes. At 4:46 p.m., a live female infant delivered spontaneously over an intact perineum in the MAGDIEL presentation. No nuchal cord. The remainder of the body delivered without difficulty and was placed on mom's abdomen. Pitocin was initiated in the IV fluids. After the cord stopped pulsing, the cord was double clamped and cut. Cord bloods were obtained. After 45 minutes, the placenta was not delivering. Manual removal was attempted but there was no plane between the placenta and the uterine wall. A decision was made to proceed to OR for manual removal and curretage. QBL with delivery 400cc. Apgars 8 at 1 minute and 5 at 9 minutes. BW 7#3oz. Infant stable to recovery. . Epidural analgesia. Baby 1: gender: Female Presentation: vertex Position: Right Occiput Anterior Placenta delivery description: Manual Removal (in OR) Cord Vessel Description: 3 Vessels and Clamped/Cut (after stopped pulsing) score (1 min): 8 score (5 min): 9 weight: 7 lb 3 oz Plan for aftercare: Other (Post op care)
[2022-09-05 19:17] VITALS: BP 98/74; PULSE 87; RESP 11; O2SAT 100
--- NOTE | 2022-09-05 19:18 | PM.GYNOP.1 ---
Operative Date/Time/Diagnoses Date of procedure: 09/05/22 Time of procedure: 19:18 Pre-op diagnosis: Retained placenta Post-op diagnosis: same Procedure & Clinicians Procedure: Procedures Operation Date: 09/05/22 17:45 Actual Procedure Side Surgeon p open vaginal removal of placenta and repair of episiotomy Lissette De Los Santos MD Indications: Retained placenta Suspect absence of Nitabuch's layer Surgeon: Lissette De Los Santos Anesthesia Type: Epidural Operative Notes Findings: Adherent placenta Absence of Nitabuch's layer Closure Type: not applicable Specimen(s): other (Pieces of placenta) Applied: catheter (To continuous drainage) Estimated blood loss (mL): 600 Blood products transfused: none Procedure in detail: After informed consent was obtained, the patient was taken to the operating room where she was placed in the dorsal supine position. After epidural analgesia was found to be adequate, she was placed in the dorsal lithotomy position, and prepped and draped in the usual sterile fashion. A time-out was performed. A bivalve speculum was placed into the vagina and the anterior lip of the cervix was grasped with a ring forcep. The bivalve speculum was removed from the vagina. A manual removal was attempted. There was found to be no plane between the placenta and the uterine wall. The placenta was removed in approximately 30 pieces. A banjo curette was used to curettage the uterus. A #12 curved plastic curette passed easily into the endometrial cavity and several passes with suction revealed small amount of blood only. Pitocin was given in the IV fluids. There was minimal amount of bleeding. The instruments were removed from the uterus. Sponge, lap, and instrument counts were correct x2. The patient tolerated the procedure well, and was taken to PACU in stable condition. Complications: none Post-operative Condition: stable Disposition: PACU Plan for aftercare: To the Center after Recovery
[2022-09-05] MEDS: IBUPROFEN 600 MG TABLET PO (20:54)
[2022-09-05] MEDS: OXYTOCIN 10 UNIT/ML VIAL IV (20:54)
[2022-09-05] MEDS: ACETAMINOPHEN 325 MG TABLET 650 MG PO (23:06)
[2022-09-05] MEDS: LANOLIN OINT 7 GM 1 APPLIC TOP (23:09)
[2022-09-05] MEDS: DERMOPLAST SPRAY 20% 60 ML 1 SPRAY TOP (23:09)
[2022-09-06] MEDS: IBUPROFEN 600 MG TABLET PO ×3 (04:09→19:40)
[2022-09-06] MEDS: ACETAMINOPHEN 325 MG TABLET 650 MG PO ×3 (05:59→22:41)
[2022-09-06 06:21] LABS: Hematocrit 30.8 % (36-46); Hemoglobin 10.6 g/dL (12.0-16.0)
[2022-09-06] MEDS: DOCUSATE 100 MG CAPSULE PO ×2 (10:15→22:41)
--- NOTE | 2022-09-06 20:16 | P.PNOB_ITS ---
Subjective - OB Subjective Patient comments: no complaints New Era baby status: doing well and nursing well New Era feeding status: exclusively breast feeding Narrative: PPD#1 s/p and POD#1 s/p manual removal of a retained placenta Bleeding has been stable and minimal Date Patient Seen: 09/06/22 Time Patient Seen: 13:30 Exam Vital Signs (past 8 hours): Oxygen Delivery Method Room Air Narrative Exam Narrative: Generally: Patient sitting up in bed, NAD Fundus: Firm, U-1 Ext: No edema, Negative Melba's. Objective Labs 09/06/22 06:05 Labs: Laboratory Results - last 24 hr 09/06/22 06:05 Hgb 10.6 L Hct 30.8 L Assessment & Plan Plan day: 1 plan OB: routine care Comments: Repeat H/H in am 09/07/22 Possible D/C in am if bleeding stable and H/H stable Time Spent With Patient Time: Total time spent is greater than 50% in coordination of care (as documented) at patient's floor/unit and/or counseling patient: Time with patient: 15-24 minutes
[2022-09-07] MEDS: IBUPROFEN 600 MG TABLET PO ×2 (06:16→12:14)
[2022-09-07] MEDS: ACETAMINOPHEN 325 MG TABLET 650 MG PO ×2 (06:16→12:14)
[2022-09-07 06:31] LABS: Hematocrit 33.3 % (36-46); Hemoglobin 11.3 g/dL (12.0-16.0); Mean Corpuscular HGB Conc 33.8 % (30-36); Mean Corpuscular Hemoglobin 30.6 PG (26-34); Mean Corpuscular Volume 90.5 fL (80-100); Platelet Count 256 X10^3/uL (150-400); Red Blood Cell Count 3.68 X10^6/uL (4.0-5.2); Red Cell Distribution Width 13.5 % (11.6-14.8); White Blood Cell Count 11.1 X10^3/uL (4.5-11.0)
[2022-09-07] MEDS: DOCUSATE 100 MG CAPSULE PO (12:15)
[2022-09-07 15:30] VITALS: BP 123/67; PULSE 93; RESP 12; TEMP 36.9
--- NOTE | 2022-10-25 07:49 | P.DS_ITS ---
Discharge Providers Provider Date of admission: 09/05/22 07:07 Discharge Date: 09/07/22 Primary care physician: LEATHA Cobos Consults: 09/05/22 07:46 Consult to Anesthesiology Urgent Comment: Consulting Provider: Anesthesiologist Reason for consultation: Epidural Has provider been notified: Yes Discharge provider: Lissette De Los Santos MD Summary Hospital Course Date Patient Seen: 09/07/22 Time Patient Seen: 13:00 Diagnoses: 37-5/7 weeks gestation Grade 3 placenta Succenturiate lobe Induction of labor with Pitocin Artificial rupture of membranes Epidural analgesia Spontaneous vaginal delivery Absence of Nitabuch's layer Manual removal of the placenta Suction D&C in operating room Hospital Course: Patient is a 36-year-old 3 para 2 who presented on September 05, 2022 for an induction of labor due to a grade 3 placenta at 37 weeks gestation. She also had a succenturiate lobe. She was started on Pitocin. She received an epidural for pain management. She had an artificial rupture of membranes. She progressed to complete dilation and had a spontaneous vaginal delivery. The placenta did not deliver spontaneously. Part of it was removed in the delivery room. She was then taken back to the operating room for removal of the rest of the placenta and a suction D&C. The remainder of her course was u nremarkable. She was discharged home on September 07, 2022. Peripartum Data Infant Delivery Method: Natural Vaginal Laceration Description: Perineal - 1st Degree and Vaginal - 1st Degree Episiotomy description: None Procedures: Pitocin induction of labor Epidural analgesia Artificial rupture of membranes Spontaneous vaginal delivery First-degree perineal/vaginal laceration repair Manual removal of placenta Suction D&C in the operating room complications: retained placenta [place] 1: Gender: Female Disposition of : home Status at Discharge Cognitive/behavioral status at discharge: oriented Functional status at discharge: independent ambulation Overall status at discharge: patient is progressing back to baseline Time Spent with Patient Time attestation: Total time spent providing and/or coordinating discharge services: Time spent: Less than 30 minutes Objective Labs 09/07/22 06:08 Exam Vital Signs (past 8 hours): Oxygen Delivery Method Room Air Narrative Exam Narrative: Generally: Patient is sitting up in bed, holding infant, no acute distress Fundus: Firm at U -1 Extremities: Trace edema, negative Homans Discharge Plan Discharge Plan Patient Disposition: Home Provider Discharge Comment: Call with fever, chills, or bleeding vaginally more than a pad in an hour Ibuprofen 600 mg every 6 hours as needed for cramping Iron for the next 4 weeks Stool softener for the next 4 weeks Discharge orders & Medications Prescriptions: Continued (DME) lancets Misc See Rx Instructions .ROUTE .MEDSUPPLY Qty: 100 2RF Rx Instructions: As directed (DME) blood-glucose meter Misc See Rx Instructions .ROUTE .MEDSUPPLY Qty: 1 0RF Rx Instructions: Use to check blood sugar 4 x daily and record on log sheet. (DME) Blood Glucose Test Strip See Rx Instructions .ROUTE .MEDSUPPLY Qty: 100 2RF Rx Instructions: Testing blood sugars 4x daily vitamin B complex Tablet 1 tab PO DAILY prenat.vits,anjali,vwy-buxt-vyept Tablet 1 tab PO DAILY double electric breast pump 1 ea topical .prn Qty: 1 0RF Rx Instructions: With supplies No Action Mirena 21 mcg/24 hours (8 yrs) 52 mg intrauterine device intrauterine Follow up/Referrals: Lissette De Los Santos MD [Physician] - ( appt: September 15 @ 10am 2 wk PP check, September 26 @1345 6 wk PP check, October 19, @ 1400) Diet/Activity/Treatments Diet: Regular Activity: Nothing in the vagina for 6 weeks Take it easy for the first week Skin/Wound/Dressing Care Report to your healthcare provider any signs of infection, such as:: chills, fever, increased pain and unusual drainage Visit Report/Discharge Packet Stand Alone Forms: Discharge: Care, Patient Portal/API, Stroke Signs & Symptoms Discharge Data Primary Care Provider: Davis Cortes Discharges patient from system. Discharge Date/Time: 09/07/22 17:03
== END 2022-09-07 17:03 | disposition home or self-care (01) | DRG 797 ==
PROVIDERS: Anesthesiology; Admitting Provider Obstetrics & Gynecology; PCP Registered Nurse Diabetes Educator; Referring Provider Obstetrics & Gynecology; Visit Provider Obstetrics & Gynecology
PROC: 10E0XZZ Delivery of Products of Conception, External Approach (ICD-10-PCS; CPT 58120; principal; 2022-09-05 17:45)
DX: O24.420 Gestational diabetes mellitus in childbirth, diet controlled (principal); O72.0 Third-stage hemorrhage; Z37.0 Single live birth; Z3A.37 37 weeks gestation of pregnancy; O76 Abnormality in fetal heart rate and rhythm complicating labor and delivery; O43.893 Other placental disorders, third trimester; O70.0 First degree perineal laceration during delivery
CPT/HCPCS: 36415; 59050; 59400; 59414; 85014; 85018; 85025; 85027; 86850; 86900; 86901; G0379; J0690; J2250; J2590; J3010

== ENCOUNTER → 2022-11-23 08:09 | Outpatient (CLI) | payer OTHER, SELFPAY ==
[2022-11-23 09:09] LABS: Glucose Fasting 88 mg/dL (70-100)
[2022-11-23 10:13] LABS: Glucose 1 Hour 149 mg/dL (70-170)
[2022-11-23 10:24] LABS: Glucose Tol Interpretation INTERPRETATION
[2022-11-23 11:26] LABS: Glucose 2 Hour 42 mg/dL (70-140)
== END ==
PROVIDERS: Family Provider Registered Nurse Diabetes Educator; PCP Registered Nurse Diabetes Educator; Referring Provider Obstetrics & Gynecology; Visit Provider Obstetrics & Gynecology
DX: Z86.32 Personal history of gestational diabetes (principal)
CPT/HCPCS: 36415; 82951; 82952

== ENCOUNTER → 2023-01-24 07:28 | Outpatient (CLI) | payer OTHER, SELFPAY ==
[2023-01-24 07:48] LABS: Add Manual Diff / Slide Review NO; Basophils Absolute Auto 0 /uL (0-100); Basophils Percent Auto 0.8 % (0-2); Eosinophils Absolute Auto 300 /uL (0-450); Eosinophils Percent Auto 7.2 % (2-4); Hematocrit 40.1 % (36-46); Hemoglobin 13.5 g/dL (12.0-16.0); Lymphocytes Absolute Auto 2000 /uL (1100-4500); Lymphocytes Percent Auto 40.8 % (25-40); Mean Corpuscular HGB Conc 33.7 % (30-36); Mean Corpuscular Hemoglobin 29.5 PG (26-34); Mean Corpuscular Volume 87.5 fL (80-100); Monocytes Absolute Auto 300 /uL (0-900); Monocytes Percent Auto 6.4 % (3-14); Neutrophils Absolute Auto 2100 /uL (1500-7000); Neutrophils Percent Auto 44.8 % (50-75); Platelet Count 346 X10^3/uL (150-400); Red Blood Cell Count 4.58 X10^6/uL (4.0-5.2); Red Cell Distribution Width 13.4 % (11.6-14.8); White Blood Cell Count 4.8 X10^3/uL (4.5-11.0)
== END ==
PROVIDERS: Family Provider Registered Nurse Diabetes Educator; PCP Registered Nurse Diabetes Educator; Referring Provider Obstetrics & Gynecology; Visit Provider Obstetrics & Gynecology
DX: D64.9 Anemia, unspecified (principal)
CPT/HCPCS: 36415; 85025

== ENCOUNTER 2023-03-13 08:00 | Outpatient (RCR) | payer OTHER, SELFPAY ==
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
--- NOTE | 2022-10-25 14:47 | PT.OPPOC ---
Physical, Occupational & Speech Therapy At [facility] Current Diagnoses Stress incontinence (female) (male) (10/25/22) Visit Care Team Role Provider Type LEATHA Cobos Family Provider Advanced Maintenance Shop Technician Primary Care Provider Specialty: Medical Address: [address] [place] [address], [id number] Email: [email or web address] Lissette De Los Santos MD Attending Provider Physician Referring Provider Specialty: Gynecology KNIFE EDGER Obstetrics Address: [address] [place] [address], [id number] Email: [email or web address] Plan Of Care PT-OP-T Assessment and Plan Start: 10/24/22 21:26 Freq: Status: Active Protocol: Document 10/25/22 16:05 AMB (Rec: 11/20/22 16:05 [facility] [id number]) Physical Therapy Assessment Rehab Potential Rehabilitation Potential Good Evaluation Complexity Number of Body Systems Impaired 1-2 Clinical Presentation at Evaluation Stable Impairments Impairments Functional Activities,Strength Goals Three Impairment Pelvic floor strength Short Term Goal (STG) Jaclyn will contract her pelvic floor for 10 seconds in standing. STG Duration 5 Hardware Assembler Goal (LTG) Jaclyn will contract her pelvic floor while moving from sit to stand. LTG Duration 10 One Impairment Incontinence Short Term Goal (STG) Jaclyn will be able to cough and sneeze without leaking. STG Duration 5 Hardware Assembler Goal (LTG) Jaclyn will return to exercise (weight lifting) without leaking. LTG Duration 10 Assessment Summary Assessment Jaclyn returns to physical therapy s/p childbirth. She was not able to be fully continent between the of her first and second children , and incontinence worsened with her . She presents with significant leaking with exercise, cough, sneeze, laugh. Her pelvic floor is actually moderately strong 3/5 considering the extent of her incontinence and recent post status. Jaclyn will benefit from physical therapy for pelvic floor strengthening, and may benefit from OBGYN follow up following completion of her physical therapy if she is continuing to have incontinence. Physical Therapy Plan Frequency and Duration Frequency of Treatment 1x/Week Duration of treatment (weeks) 12 Plan of Care Start Date 10/25/22 Plan of Care End Date 01/17/23 Therapeutic Interventions Therapeutic Interventions Home Exercise Program,Manual Therapy,Neuromuscular Re- education,Self-Care/Home Management,Therapeutic Activities,Therapeutic Exercises Modalities Biofeedback,Electric Stimulation Next Visit Focus/Plan Next Note Type Treatment Note Next Visit Plan sEMG as needed, progressive pelvic floor strengthening Plan of Care Dates Plan of Care Start Date 10/25/22 Plan of Care End Date 01/17/23 Electronically Signed by: Daniella Jasso, PT 11/21/22 [id number] If you are in agreement with this Plan of Care, please return a signed and dated copy. I have reviewed this Plan of Care and certify that the skilled therapy services above are required to meet the patient?s needs. Physician Signature Date Printed Name and Credentials Clinical Instructor Signature Printed Name and Credentials
--- NOTE | 2022-11-22 15:47 | PT.OTN ---
Current Diagnoses Stress incontinence (female) (male) (11/22/22) Physical Therapy Treatment Note PT-OP-A Visit Information Start: 10/24/22 21:26 Freq: Status: Active Protocol: Document 11/22/22 08:18 AMB (Rec: 11/22/22 09:02 AMB [id number]) Out-Patient Physical Therapy Visit Information Visit Information Visit Type Treatment Note Visit Start Time 08:15 Visit Stop Time 09:00 Total Visit Minutes 45 Visit Number 2 PT-OP-B Current Condition Start: 10/24/22 21:26 Freq: Status: Active Protocol: Document 10/25/22 11:57 AMB (Rec: 10/25/22 12:48 AMB [id number]) Current Condition History of Current Condition Onset Date September 05 Current Complaints DIONNE History of Current Condition Jaclyn returns to physical therapy 7 weeks post . . She was wearing a panty liner at the end of and leaking more now after the bith of her daughter. Pt was induced had a retained placenta and did have to have a DNC. For the first 3 weeks post was leaking all the time even with taking a step. Now getting better but currently changes pads every 2 hours. Leaking is getting a little better, but did have to run after her toddler and leaked a lot with that just recently. Went stand up paddle boarding and did feel that in her abs. Is leaking with sit to stand, cough, sneeze, laugh. PT-OP-C Subjective Start: 10/24/22 21:26 Freq: Status: Active Protocol: Document 11/22/22 08:18 AMB (Rec: 11/22/22 09:02 AMB [id number]) OP-PT Subjective Patient Comments Patient Comments Pt noticing marginal improvement, earlier in the day PT-OP-I Pelvic Floor Start: 10/24/22 21:26 Freq: Status: Active Protocol: Document 10/25/22 13:00 AMB (Rec: 10/25/22 13:06 AMB [id number]) Pelvic Floor Assessment Urine Leakage Size Small Leakage Cause Cough,Exercise,Lifting,Sneeze, Urge Leaks Per Day constant Voiding Frequency 10/day Nocturia 1 Pads Used In 24 Hours 2 Urine Pad Type Maxi Pad Prolapse Cystocele Grade 2 Urethrocele Grade 1 Rectocele Grade 2 Contraction Ability Manual Muscle Testing Left 3 Manual Muscle Testing Right 3 Manual Muscle Testing Anterior 3 Manual Muscle Testing Posterior 3 Muscle Endurance (Seconds) 10 Number of Quick Contractions In 10 4 Seconds Comments Pelvic Floor Comments labias gape at rest PT-OP-Q Treatments Start: 10/24/22 21:26 Freq: Status: Active Protocol: Document 11/22/22 09:58 AMB (Rec: 11/22/22 10:01 AMB [id number]) Therapeutic Exercises Supine Exercises 10 second holds Supine Exercise Name with NMES Neuro Re-Education Treatment Other Activities sEMG Details 10 min Comments pt cued to gently contract to avoid power spike in the beginning. Pt with good maximum but difficulty holding . Still averaged 12-14uV on long holds. Cued breathing gentle abs. PT-OP-T Assessment and Plan Start: 10/24/22 21:26 Freq: Status: Active Protocol: Document 11/22/22 08:18 AMB (Rec: 11/22/22 09:02 AMB [id number]) Physical Therapy Assessment Goals Three Impairment Pelvic floor strength Short Term Goal (STG) Jaclyn will contract her pelvic floor for 10 seconds in standing. STG Duration 5 Director Council On Aging Goal (LTG) Jaclyn will contract her pelvic floor while moving from sit to stand. LTG Duration 10 One Impairment Incontinence Short Term Goal (STG) Jaclyn will be able to cough and sneeze without leaking. STG Duration 5 Director Council On Aging Goal (LTG) Jaclyn will return to exercise (weight lifting) without leaking. LTG Duration 10 Assessment Summary Assessment Avg 14, max 28 with long holds with biofeedback. PT interested in NMES unit so tried in clinic, a bit uncomfortable for pt. Pt working on gentle contraction and gentle relaxation. Pt's overall strenth continues to be good considering the level of her leaking. Physical Therapy Plan Frequency and Duration Frequency of Treatment 1x/Week Duration of treatment (weeks) 12 Plan of Care Start Date 10/25/22 Plan of Care End Date 01/17/23 Therapeutic Interventions Therapeutic Interventions Home Exercise Program,Manual Therapy,Neuromuscular Re- education,Self-Care/Home Management,Therapeutic Activities,Therapeutic Exercises Modalities Biofeedback,Electric Stimulation Next Visit Focus/Plan Next Note Type Treatment Note Next Visit Plan sEMG as needed, progressive pelvic floor strengthening, evaluate pressure is she creating abdominal pressure
--- NOTE | 2022-11-27 22:15 | PT.OTN ---
Current Diagnoses Stress incontinence (female) (male) (11/27/22) Physical Therapy Treatment Note PT-OP-A Visit Information Start: 10/24/22 21:26 Freq: Status: Active Protocol: Document 11/27/22 13:34 AMB (Rec: 11/27/22 14:23 AMB [id number]) Out-Patient Physical Therapy Visit Information Visit Information Visit Type Treatment Note Visit Start Time 13:30 Visit Stop Time 14:15 Total Visit Minutes 45 Visit Number 3 PT-OP-B Current Condition Start: 10/24/22 21:26 Freq: Status: Active Protocol: Document 10/25/22 11:57 AMB (Rec: 10/25/22 12:48 AMB [id number]) Current Condition History of Current Condition Onset Date September 05 Current Complaints DIONNE History of Current Condition Jaclyn returns to physical therapy 7 weeks post . . She was wearing a panty liner at the end of and leaking more now after the bith of her daughter. Pt was induced had a retained placenta and did have to have a DNC. For the first 3 weeks post was leaking all the time even with taking a step. Now getting better but currently changes pads every 2 hours. Leaking is getting a little better, but did have to run after her toddler and leaked a lot with that just recently. Went stand up paddle boarding and did feel that in her abs. Is leaking with sit to stand, cough, sneeze, laugh. PT-OP-C Subjective Start: 10/24/22 21:26 Freq: Status: Active Protocol: Document 11/27/22 13:34 AMB (Rec: 11/27/22 14:23 AMB [id number]) OP-PT Subjective Patient Comments Patient Comments Setting a timer to go to the bathroom every 2 hours. Did do a peloton ride and brisk walk on the [employer] [place] PT-OP-I Pelvic Floor Start: 10/24/22 21:26 Freq: Status: Active Protocol: Document 10/25/22 13:00 AMB (Rec: 10/25/22 13:06 AMB [id number]) Pelvic Floor Assessment Urine Leakage Size Small Leakage Cause Cough,Exercise,Lifting,Sneeze, Urge Leaks Per Day constant Voiding Frequency 10/day Nocturia 1 Pads Used In 24 Hours 2 Urine Pad Type Maxi Pad Prolapse Cystocele Grade 2 Urethrocele Grade 1 Rectocele Grade 2 Contraction Ability Manual Muscle Testing Left 3 Manual Muscle Testing Right 3 Manual Muscle Testing Anterior 3 Manual Muscle Testing Posterior 3 Muscle Endurance (Seconds) 10 Number of Quick Contractions In 10 4 Seconds Comments Pelvic Floor Comments labias gape at rest PT-OP-Q Treatments Start: 10/24/22 21:26 Freq: Status: Active Protocol: Document 11/27/22 13:30 AMB (Rec: 11/29/22 22:13 AMB [id number]) Manual Therapy Treatment Soft Tissue Mobilization 1 Body Location Abdomen Comments Worked focused on fascia on L QL and obliques, then bladder support superiorly given pt's urgency PT-OP-T Assessment and Plan Start: 10/24/22 21:26 Freq: Status: Active Protocol: Document 11/27/22 13:34 AMB (Rec: 11/27/22 14:23 AMB [id number]) Physical Therapy Assessment Goals Three Impairment Pelvic floor strength Short Term Goal (STG) Jaclyn will contract her pelvic floor for 10 seconds in standing. STG Duration 5 Detention Goal (LTG) Jaclyn will contract her pelvic floor while moving from sit to stand. LTG Duration 10 One Impairment Incontinence Short Term Goal (STG) Jaclyn will be able to cough and sneeze without leaking. STG Duration 5 Granite Cutter Apprentice Goal (LTG) Jaclyn will return to exercise (weight lifting) without leaking. LTG Duration 10 Assessment Summary Assessment Jaclyn attends PT with improving sx since she is trying timed voids. Did work fascially (abdomen) today as that is something we have not tried, pt continues to work hard to contract pelvic floor muscles, will want to reassess prolapse in next few sessions , currently with 2 finger width diastasis. Physical Therapy Plan Frequency and Duration Frequency of Treatment 1x/Week Duration of treatment (weeks) 12 Plan of Care Start Date 10/25/22 Plan of Care End Date 01/17/23 Therapeutic Interventions Therapeutic Interventions Home Exercise Program,Manual Therapy,Neuromuscular Re- education,Self-Care/Home Management,Therapeutic Activities,Therapeutic Exercises Modalities Biofeedback,Electric Stimulation Next Visit Focus/Plan Next Note Type Treatment Note Next Visit Plan sEMG as needed, progressive pelvic floor strengthening, evaluate pressure is she creating abdominal pressure
--- NOTE | 2022-12-05 15:51 | PT.OTN ---
Current Diagnoses Stress incontinence (female) (male) (12/05/22) Physical Therapy Treatment Note PT-OP-A Visit Information Start: 10/24/22 21:26 Freq: Status: Active Protocol: Document 12/05/22 12:48 AMB (Rec: 12/05/22 13:25 AMB [id number]) Out-Patient Physical Therapy Visit Information Visit Information Visit Type Treatment Note Visit Start Time 12:45 Visit Stop Time 13:30 Total Visit Minutes 45 Visit Number 4 PT-OP-B Current Condition Start: 10/24/22 21:26 Freq: Status: Active Protocol: Document 10/25/22 11:57 AMB (Rec: 10/25/22 12:48 AMB [id number]) Current Condition History of Current Condition Onset Date September 05 Current Complaints DIONNE History of Current Condition Jaclyn returns to physical therapy 7 weeks post . . She was wearing a panty liner at the end of and leaking more now after the bith of her daughter. Pt was induced had a retained placenta and did have to have a DNC. For the first 3 weeks post was leaking all the time even with taking a step. Now getting better but currently changes pads every 2 hours. Leaking is getting a little better, but did have to run after her toddler and leaked a lot with that just recently. Went stand up paddle boarding and did feel that in her abs. Is leaking with sit to stand, cough, sneeze, laugh. PT-OP-C Subjective Start: 10/24/22 21:26 Freq: Status: Active Protocol: Document 12/05/22 15:38 AMB (Rec: 12/05/22 15:50 AMB [id number]) OP-PT Subjective Patient Comments Patient Comments Jaclyn continues to notice leaking PT-OP-I Pelvic Floor Start: 10/24/22 21:26 Freq: Status: Active Protocol: Document 10/25/22 13:00 AMB (Rec: 10/25/22 13:06 AMB [id number]) Pelvic Floor Assessment Urine Leakage Size Small Leakage Cause Cough,Exercise,Lifting,Sneeze, Urge Leaks Per Day constant Voiding Frequency 10/day Nocturia 1 Pads Used In 24 Hours 2 Urine Pad Type Maxi Pad Prolapse Cystocele Grade 2 Urethrocele Grade 1 Rectocele Grade 2 Contraction Ability Manual Muscle Testing Left 3 Manual Muscle Testing Right 3 Manual Muscle Testing Anterior 3 Manual Muscle Testing Posterior 3 Muscle Endurance (Seconds) 10 Number of Quick Contractions In 10 4 Seconds Comments Pelvic Floor Comments labias gape at rest PT-OP-Q Treatments Start: 10/24/22 21:26 Freq: Status: Active Protocol: Document 12/05/22 15:38 AMB (Rec: 12/05/22 15:50 AMB [id number]) Therapeutic Exercises Supine Exercises TA and pelvic floor Supine Exercise Name with exhale Reps/Minutes 10 second holds Comments difficult Other Exercises skip pose Other Exercise Name with focus on inhale and filling posterior rib cage Reps/Minutes 2x10 PT-OP-T Assessment and Plan Start: 10/24/22 21:26 Freq: Status: Active Protocol: Document 12/05/22 12:48 AMB (Rec: 12/05/22 13:25 AMB [id number]) Physical Therapy Assessment Goals Three Impairment Pelvic floor strength Short Term Goal (STG) Jaclyn will contract her pelvic floor for 10 seconds in standing. STG Duration 5 Building Analyst/Supervisor Goal (LTG) Jaclyn will contract her pelvic floor while moving from sit to stand. LTG Duration 10 One Impairment Incontinence Short Term Goal (STG) Jaclyn will be able to cough and sneeze without leaking. STG Duration 5 Fdc Goal (LTG) Jaclyn will return to exercise (weight lifting) without leaking. LTG Duration 10 Assessment Summary Assessment Jaclyn continues to have leaking, especialy with extra pressure (like hiking downhill with baby on chest). Encouraged continued strengthening with focus on breath to expand posterior rib cage, working to reduce anterior pelvic tilt. Physical Therapy Plan Frequency and Duration Frequency of Treatment 1x/Week Duration of treatment (weeks) 12 Plan of Care Start Date 10/25/22 Plan of Care End Date 01/17/23 Therapeutic Interventions Therapeutic Interventions Home Exercise Program,Manual Therapy,Neuromuscular Re- education,Self-Care/Home Management,Therapeutic Activities,Therapeutic Exercises Modalities Biofeedback,Electric Stimulation Next Visit Focus/Plan Next Note Type Treatment Note Next Visit Plan sEMG as needed, progressive pelvic floor strengthening, evaluate pressure is she creating abdominal pressure
--- NOTE | 2022-12-12 08:51 | PT.OTN ---
Current Diagnoses Stress incontinence (female) (male) (12/12/22) Physical Therapy Treatment Note PT-OP-A Visit Information Start: 10/24/22 21:26 Freq: Status: Active Protocol: Document 12/12/22 07:33 AMB (Rec: 12/12/22 08:47 AMB [id number]) Out-Patient Physical Therapy Visit Information Visit Information Visit Type Treatment Note Visit Start Time 07:30 Visit Stop Time 08:15 Total Visit Minutes 45 Visit Number 5 PT-OP-B Current Condition Start: 10/24/22 21:26 Freq: Status: Active Protocol: Document 10/25/22 11:57 AMB (Rec: 10/25/22 12:48 AMB [id number]) Current Condition History of Current Condition Onset Date September 05 Current Complaints DIONNE History of Current Condition Jaclyn returns to physical therapy 7 weeks post . . She was wearing a panty liner at the end of and leaking more now after the bith of her daughter. Pt was induced had a retained placenta and did have to have a DNC. For the first 3 weeks post was leaking all the time even with taking a step. Now getting better but currently changes pads every 2 hours. Leaking is getting a little better, but did have to run after her toddler and leaked a lot with that just recently. Went stand up paddle boarding and did feel that in her abs. Is leaking with sit to stand, cough, sneeze, laugh. PT-OP-C Subjective Start: 10/24/22 21:26 Freq: Status: Active Protocol: Document 12/12/22 07:33 AMB (Rec: 12/12/22 08:47 AMB [id number]) OP-PT Subjective Patient Comments Patient Comments Jaclyn has been working hard on her exercises. PT-OP-I Pelvic Floor Start: 10/24/22 21:26 Freq: Status: Active Protocol: Document 10/25/22 13:00 AMB (Rec: 10/25/22 13:06 AMB [id number]) Pelvic Floor Assessment Urine Leakage Size Small Leakage Cause Cough,Exercise,Lifting,Sneeze, Urge Leaks Per Day constant Voiding Frequency 10/day Nocturia 1 Pads Used In 24 Hours 2 Urine Pad Type Maxi Pad Prolapse Cystocele Grade 2 Urethrocele Grade 1 Rectocele Grade 2 Contraction Ability Manual Muscle Testing Left 3 Manual Muscle Testing Right 3 Manual Muscle Testing Anterior 3 Manual Muscle Testing Posterior 3 Muscle Endurance (Seconds) 10 Number of Quick Contractions In 10 4 Seconds Comments Pelvic Floor Comments labias gape at rest PT-OP-Q Treatments Start: 10/24/22 21:26 Freq: Status: Active Protocol: Document 12/12/22 07:33 AMB (Rec: 12/12/22 08:47 AMB [id number]) Therapeutic Exercises Supine Exercises TA and pelvic floor Supine Exercise Name with exhale Reps/Minutes 10 second holds Comments difficult Neuro Re-Education Treatment Other Activities sEMG Details 30 min Comments pt cued to gently contract to avoid power spike in the beginning. Pt with good maximum but difficulty holding . Cued breathing gentle abs. PT-OP-T Assessment and Plan Start: 10/24/22 21:26 Freq: Status: Active Protocol: Document 12/12/22 07:33 AMB (Rec: 12/12/22 08:47 AMB [id number]) Physical Therapy Assessment Goals Three Impairment Pelvic floor strength Short Term Goal (STG) Jaclyn will contract her pelvic floor for 10 seconds in standing. STG Duration 5 Longterm Goal (LTG) Jaclyn will contract her pelvic floor while moving from sit to stand. LTG Duration 10 One Impairment Incontinence Short Term Goal (STG) Jaclyn will be able to cough and sneeze without leaking. STG Duration 5 Intelligence Senior Sergeant Goal (LTG) Jaclyn will return to exercise (weight lifting) without leaking. LTG Duration 10 Assessment Summary Assessment Pt has been working on posture and working breathing. Avg 16, max 37. Pt concerned about a feeling of burning, not really when she urinates, so did check vaginally today, no redness or discharge noted, encouraged pt that wearing pads all the time could cause some discomfort, but if burning continues to follow up with MD. Physical Therapy Plan Frequency and Duration Frequency of Treatment 1x/Week Duration of treatment (weeks) 12 Plan of Care Start Date 10/25/22 Plan of Care End Date 01/17/23 Therapeutic Interventions Therapeutic Interventions Home Exercise Program,Manual Therapy,Neuromuscular Re- education,Self-Care/Home Management,Therapeutic Activities,Therapeutic Exercises Modalities Biofeedback,Electric Stimulation Next Visit Focus/Plan Next Note Type Treatment Note Next Visit Plan sEMG as needed, progressive pelvic floor strengthening, evaluate pressure is she creating abdominal pressure
--- NOTE | 2022-12-19 15:08 | PT.OTN ---
Current Diagnoses Stress incontinence (female) (male) (12/19/22) Physical Therapy Treatment Note PT-OP-A Visit Information Start: 10/24/22 21:26 Freq: Status: Active Protocol: Document 12/19/22 09:04 AMB (Rec: 12/19/22 10:01 AMB [id number]) Out-Patient Physical Therapy Visit Information Visit Information Visit Type Treatment Note Visit Start Time 09:00 Visit Stop Time 09:40 Total Visit Minutes 45 Visit Number 6 PT-OP-B Current Condition Start: 10/24/22 21:26 Freq: Status: Active Protocol: Document 10/25/22 11:57 AMB (Rec: 10/25/22 12:48 AMB [id number]) Current Condition History of Current Condition Onset Date September 05 Current Complaints DIONNE History of Current Condition Saleem returns to physical therapy 7 weeks post . . She was wearing a panty liner at the end of and leaking more now after the bith of her daughter. Pt was induced had a retained placenta and did have to have a DNC. For the first 3 weeks post was leaking all the time even with taking a step. Now getting better but currently changes pads every 2 hours. Leaking is getting a little better, but did have to run after her toddler and leaked a lot with that just recently. Went stand up paddle boarding and did feel that in her abs. Is leaking with sit to stand, cough, sneeze, laugh. PT-OP-C Subjective Start: 10/24/22 21:26 Freq: Status: Active Protocol: Document 12/19/22 09:04 AMB (Rec: 12/19/22 10:01 AMB [id number]) OP-PT Subjective Patient Comments Patient Comments Saleem has been working on kegels in multiple settings, quadruped, standing, sitting. PT-OP-I Pelvic Floor Start: 10/24/22 21:26 Freq: Status: Active Protocol: Document 10/25/22 13:00 AMB (Rec: 10/25/22 13:06 AMB [id number]) Pelvic Floor Assessment Urine Leakage Size Small Leakage Cause Cough,Exercise,Lifting,Sneeze, Urge Leaks Per Day constant Voiding Frequency 10/day Nocturia 1 Pads Used In 24 Hours 2 Urine Pad Type Maxi Pad Prolapse Cystocele Grade 2 Urethrocele Grade 1 Rectocele Grade 2 Contraction Ability Manual Muscle Testing Left 3 Manual Muscle Testing Right 3 Manual Muscle Testing Anterior 3 Manual Muscle Testing Posterior 3 Muscle Endurance (Seconds) 10 Number of Quick Contractions In 10 4 Seconds Comments Pelvic Floor Comments labias gape at rest PT-OP-Q Treatments Start: 10/24/22 21:26 Freq: Status: Active Protocol: Document 12/19/22 09:04 AMB (Rec: 12/19/22 10:01 AMB [id number]) Therapeutic Exercises Supine Exercises TA and pelvic floor Supine Exercise Name with exhale Reps/Minutes 10 second holds Comments difficult Standing Exercises kegel at wall Standing Exercise Name against wall Reps/Minutes 5x10 Comments cue breathing Other Exercises quadruped pelvic floor Reps/Minutes 10 Comments longer holds working toward 5 second holds Manual Therapy Treatment Taping kinesiotape Body Location lumbar spine Comments 2 I strips at paraspinals to assist with neutral spine PT-OP-T Assessment and Plan Start: 10/24/22 21:26 Freq: Status: Active Protocol: Document 12/19/22 09:04 AMB (Rec: 12/19/22 10:01 AMB [id number]) Physical Therapy Assessment Goals Three Impairment Pelvic floor strength Short Term Goal (STG) Saleem will contract her pelvic floor for 10 seconds in standing. STG Duration 5 Farm Or Ranch Animal Caretaker Goal (LTG) Saleem will contract her pelvic floor while moving from sit to stand. LTG Duration 10 One Impairment Incontinence Short Term Goal (STG) Saleem will be able to cough and sneeze without leaking. STG Duration 5 Fci Goal (LTG) Saleem will return to exercise (weight lifting) without leaking. LTG Duration 10 Assessment Summary Assessment Pt has been more focused on posture and breathing component when doing the kegles. Timed voids are between 1.5 and 2 hours. No more irritation vaginally. Walking a distance continues to cause pretty significant leaks. Using more period underwear than pads and that has been going fine. Has been doign short peloton ride is leaking with that. Biggest problem is walking. Encouraged saleem to try to lengthen the hold times of her kegels. Physical Therapy Plan Frequency and Duration Frequency of Treatment 1x/Week Duration of treatment (weeks) 12 Plan of Care Start Date 10/25/22 Plan of Care End Date 01/17/23 Therapeutic Interventions Therapeutic Interventions Home Exercise Program,Manual Therapy,Neuromuscular Re- education,Self-Care/Home Management,Therapeutic Activities,Therapeutic Exercises Modalities Biofeedback,Electric Stimulation Next Visit Focus/Plan Next Note Type Treatment Note Next Visit Plan recheck how pt liked kinesiotape. sEMG as needed, progressive pelvic floor strengthening, evaluate pressure is she creating abdominal pressure
--- NOTE | 2023-01-09 16:41 | PT.OTN ---
Current Diagnoses Stress incontinence (female) (male) (01/09/23) Physical Therapy Treatment Note PT-OP-A Visit Information Start: 10/24/22 21:26 Freq: Status: Active Protocol: Document 01/09/23 08:45 AMH (Rec: 01/09/23 09:37 [facility] [id number]) Out-Patient Physical Therapy Visit Information Visit Information Visit Type Treatment Note Visit Start Time 08:48 Visit Stop Time 09:30 Total Visit Minutes 42 Visit Number 7 PT-OP-B Current Condition Start: 10/24/22 21:26 Freq: Status: Active Protocol: Document 10/25/22 11:57 AMB (Rec: 10/25/22 12:48 AMB [id number]) Current Condition History of Current Condition Onset Date September 05 Current Complaints DIONNE History of Current Condition Jaclyn returns to physical therapy 7 weeks post . . She was wearing a panty liner at the end of and leaking more now after the bith of her daughter. Pt was induced had a retained placenta and did have to have a DNC. For the first 3 weeks post was leaking all the time even with taking a step. Now getting better but currently changes pads every 2 hours. Leaking is getting a little better, but did have to run after her toddler and leaked a lot with that just recently. Went stand up paddle boarding and did feel that in her abs. Is leaking with sit to stand, cough, sneeze, laugh. PT-OP-C Subjective Start: 10/24/22 21:26 Freq: Status: Active Protocol: Document 01/09/23 08:45 AMH (Rec: 01/09/23 09:37 [facility] [id number]) OP-PT Subjective Patient Comments Patient Comments Things have improved very marginally, she is leaking consistantly throughout the day certain days are better than others, she wears incontinence underwear at home , yesterday she only went through two pairs of underware . If she is rushing or walking quickly it is a constant ache. She is trying to work on her posture buttermaker continuous churn goal is running. September 05 so just turned [address] De Los Santos at 6 weeks post . She has a follow up with her in February PT-OP-I Pelvic Floor Start: 10/24/22 21:26 Freq: Status: Active Protocol: Document 10/25/22 13:00 AMB (Rec: 10/25/22 13:06 AMB [id number]) Pelvic Floor Assessment Urine Leakage Size Small Leakage Cause Cough,Exercise,Lifting,Sneeze, Urge Leaks Per Day constant Voiding Frequency 10/day Nocturia 1 Pads Used In 24 Hours 2 Urine Pad Type Maxi Pad Prolapse Cystocele Grade 2 Urethrocele Grade 1 Rectocele Grade 2 Contraction Ability Manual Muscle Testing Left 3 Manual Muscle Testing Right 3 Manual Muscle Testing Anterior 3 Manual Muscle Testing Posterior 3 Muscle Endurance (Seconds) 10 Number of Quick Contractions In 10 4 Seconds Comments Pelvic Floor Comments labias gape at rest PT-OP-Q Treatments Start: 10/24/22 21:26 Freq: Status: Active Protocol: Document 01/09/23 16:36 AMH (Rec: 01/09/23 16:41 AMH [id number]) Therapeutic Exercises Supine Exercises lower abdominal progression Supine Exercise Name level 1 b Reps/Minutes x 10 reps TA with marches Reps/Minutes x 10 reps TA and pelvic floor Supine Exercise Name with exhale Reps/Minutes 10 second holds Manual Therapy Treatment Soft Tissue Mobilization 2 Body Location abdominal wall Comments diastasis assessment, 3 finger width diastasis at the umbilicus left sided perineum assessment Body Location perineum left sided scar tissue assessment Comments pt still has some scaring on the left side of the perieum and was educated on scar tissue release Self-Care/Home Management Treatment Education Patient Education Home Exercise Program Other Education education on pelvic floor and TA bracing prior to outer abdominal wall, HEP PT-OP-T Assessment and Plan Start: 10/24/22 21:26 Freq: Status: Active Protocol: Document 01/09/23 16:36 AMH (Rec: 01/09/23 16:41 AMH [id number]) Physical Therapy Assessment Assessment Summary Assessment Reassessment of pelvic floor, left sided scar tissue at perineum, decreased tone left vaginal wall, 3 finger width diastasis at the umbilicus. Pts exercises were reviewed and she was educated on pelvic floor engagement first prior to outer abdominal wall. Will work on additional scar tissue release work next visit Physical Therapy Plan Frequency and Duration Frequency of Treatment 1x/Week Duration of treatment (weeks) 12 Plan of Care Start Date 10/25/22 Plan of Care End Date 01/17/23 Next Visit Focus/Plan Next Note Type Progress Note Next Visit Plan scar tissue release at the perineum, pelvic floor EMG, assess kinesiotape, possible trial of NMES next visit
--- NOTE | 2023-01-24 08:51 | PT.OTN ---
Current Diagnoses Stress incontinence (female) (male) (01/24/23) Physical Therapy Treatment Note PT-OP-A Visit Information Start: 10/24/22 21:26 Freq: Status: Active Protocol: Document 01/24/23 07:55 [facility] (Rec: 01/24/23 08:24 [facility] [id number]) Out-Patient Physical Therapy Visit Information Visit Information Visit Type Treatment Note Visit Start Time 08:00 Visit Stop Time 08:45 Total Visit Minutes 45 Visit Number 8 PT-OP-B Current Condition Start: 10/24/22 21:26 Freq: Status: Active Protocol: Document 10/25/22 11:57 AMB (Rec: 10/25/22 12:48 AMB [id number]) Current Condition History of Current Condition Onset Date September 05 Current Complaints DIONNE History of Current Condition Jaclyn returns to physical therapy 7 weeks post . . She was wearing a panty liner at the end of and leaking more now after the bith of her daughter. Pt was induced had a retained placenta and did have to have a DNC. For the first 3 weeks post was leaking all the time even with taking a step. Now getting better but currently changes pads every 2 hours. Leaking is getting a little better, but did have to run after her toddler and leaked a lot with that just recently. Went stand up paddle boarding and did feel that in her abs. Is leaking with sit to stand, cough, sneeze, laugh. PT-OP-C Subjective Start: 10/24/22 21:26 Freq: Status: Active Protocol: Document 01/24/23 07:55 [facility] (Rec: 01/24/23 08:24 [facility] [id number]) OP-PT Subjective Patient Comments Patient Comments she did start back to work, marginal improvement with leaking, she is trying to work on deep core in the am. She did get covid but didn't have much of a cough. She has worked 2 times on the scar tissue. Patient Reported Progress Improving PT-OP-I Pelvic Floor Start: 10/24/22 21:26 Freq: Status: Active Protocol: Document 10/25/22 13:00 AMB (Rec: 10/25/22 13:06 AMB [id number]) Pelvic Floor Assessment Urine Leakage Size Small Leakage Cause Cough,Exercise,Lifting,Sneeze, Urge Leaks Per Day constant Voiding Frequency 10/day Nocturia 1 Pads Used In 24 Hours 2 Urine Pad Type Maxi Pad Prolapse Cystocele Grade 2 Urethrocele Grade 1 Rectocele Grade 2 Contraction Ability Manual Muscle Testing Left 3 Manual Muscle Testing Right 3 Manual Muscle Testing Anterior 3 Manual Muscle Testing Posterior 3 Muscle Endurance (Seconds) 10 Number of Quick Contractions In 10 4 Seconds Comments Pelvic Floor Comments labias gape at rest PT-OP-Q Treatments Start: 10/24/22 21:26 Freq: Status: Active Protocol: Document 01/24/23 07:55 [facility] (Rec: 01/24/23 08:28 [facility] [id number]) Therapeutic Exercises Supine Exercises 10 second holds Reps/Minutes 10 reps x 10 sec hold time Comments average of 20uv with max of 62 uv Manual Therapy Treatment Soft Tissue Mobilization left sided perineum scar tissue mobilization Mobilization Type Instrument Assisted Comments pt was given a size xs dilator for self scar tissue massage work, I worked today on perineum, left side Transvese perineum and bulbocavernosis Neuro Re-Education Treatment Other Activities NMES Details NMES for the pelvic floor Reps/Duration 10 minutes Comments pt able to take NMES to level 15 and is feeling most of her sensation on the left side, she feels the most sensation from 12-5 on the pelvic clock sEMG Comments 62 max and average of 20 uv Self-Care/Home Management Treatment Education Patient Education Home Exercise Program Other Education pt ws given information on self scar tissue release with dilator, anatomy was reviewed for transverse perineum mobilization techniques PT-OP-T Assessment and Plan Start: 10/24/22 21:26 Freq: Status: Active Protocol: Document 01/24/23 07:55 [facility] (Rec: 01/24/23 08:24 [facility] [id number]) Physical Therapy Assessment Goals Three Impairment Pelvic floor strength Short Term Goal (STG) Jaclyn will contract her pelvic floor for 10 seconds in standing. Good progress as pt has been working on standing contractions STG Duration 5 Shirt Presser Goal (LTG) Jaclyn will contract her pelvic floor while moving from sit to stand. Goal not yet met LTG Duration 10 One Impairment Incontinence Short Term Goal (STG) Jaclyn will be able to cough and sneeze without leaking. Some progress Shirt Presser Goal (LTG) Jaclyn will return to exercise (weight lifting) without leaking. Goal not yet met Assessment Summary Assessment Time was spent in scar tissue release of the left side of the perineum today with Jaclyn and she was shown how to do self scar tissue release with size xs dilator. She is doing better pulling up in her perineum centrally without the left lateral deviation. She did show a increase on EMG biofeedback today as well for both average and max contraction. NMES was done to help improve tone of left lateral wall Physical Therapy Plan Frequency and Duration Frequency of Treatment 1x/Week Duration of treatment (weeks) 12 Plan of Care Start Date 10/25/22 Plan of Care End Date 01/17/23 Therapeutic Interventions Therapeutic Interventions Home Exercise Program,Manual Therapy,Neuromuscular Re- education,Self-Care/Home Management,Therapeutic Activities,Therapeutic Exercises Modalities Biofeedback,Electric Stimulation Next Visit Focus/Plan Next Note Type Treatment Note Next Visit Plan recheck perineum scar tissue and asses pts responce to treatment
--- NOTE | 2023-02-01 13:53 | PT.OTN ---
Current Diagnoses Stress incontinence (female) (male) (02/01/23) Physical Therapy Treatment Note PT-OP-A Visit Information Start: 10/24/22 21:26 Freq: Status: Active Protocol: Document 02/01/23 11:13 [facility] (Rec: 02/01/23 11:59 [facility] [id number]) Out-Patient Physical Therapy Visit Information Visit Information Visit Type Progress Note Visit Start Time 11:15 Visit Stop Time 12:00 Total Visit Minutes 45 Visit Number 9 Evaluation Information Evaluation Date 10/25/22 PT-OP-B Current Condition Start: 10/24/22 21:26 Freq: Status: Active Protocol: Document 10/25/22 11:57 AMB (Rec: 10/25/22 12:48 AMB [id number]) Current Condition History of Current Condition Onset Date September 05 Current Complaints DIONNE History of Current Condition Jaclyn returns to physical therapy 7 weeks post . . She was wearing a panty liner at the end of and leaking more now after the bith of her daughter. Pt was induced had a retained placenta and did have to have a DNC. For the first 3 weeks post was leaking all the time even with taking a step. Now getting better but currently changes pads every 2 hours. Leaking is getting a little better, but did have to run after her toddler and leaked a lot with that just recently. Went stand up paddle boarding and did feel that in her abs. Is leaking with sit to stand, cough, sneeze, laugh. PT-OP-C Subjective Start: 10/24/22 21:26 Freq: Status: Active Protocol: Document 02/01/23 11:13 [facility] (Rec: 02/01/23 11:59 [facility] [id number]) OP-PT Subjective Patient Comments Patient Comments she has been getting used to her work routine this past couple of weeks. She is not experiencing leaking with sitting. She notes that when it is happening is later in the day when she feels more fatigued. It can happen in times like picking up her daughter from a squat position when she is not ready or braced. PT-OP-I Pelvic Floor Start: 10/24/22 21:26 Freq: Status: Active Protocol: Document 10/25/22 13:00 AM[facility] (Rec: 10/25/22 13:06 AMB [id number]) Pelvic Floor Assessment Urine Leakage Size Small Leakage Cause Cough,Exercise,Lifting,Sneeze, Urge Leaks Per Day constant Voiding Frequency 10/day Nocturia 1 Pads Used In 24 Hours 2 Urine Pad Type Maxi Pad Prolapse Cystocele Grade 2 Urethrocele Grade 1 Rectocele Grade 2 Contraction Ability Manual Muscle Testing Left 3 Manual Muscle Testing Right 3 Manual Muscle Testing Anterior 3 Manual Muscle Testing Posterior 3 Muscle Endurance (Seconds) 10 Number of Quick Contractions In 10 4 Seconds Comments Pelvic Floor Comments labias gape at rest PT-OP-Q Treatments Start: 10/24/22 21:26 Freq: Status: Active Protocol: Document 02/01/23 11:13 [facility] (Rec: 02/01/23 11:59 [facility] [id number]) Therapeutic Exercises Supine Exercises quick contrations Reps/Minutes x 10 reps 10 second holds Reps/Minutes 10 reps x 10 sec hold time Comments average of 17 max of Manual Therapy Treatment Soft Tissue Mobilization left sided perineum scar tissue mobilization Mobilization Type Instrument Assisted Comments scar tissue work today on perineum, left side Transvese perineum and bulbocavernosis Neuro Re-Education Treatment Other Activities NMES Details NMES for the pelvic floor Reps/Duration 10 minutes Comments pt able to feel the sensation at level 12 and then increased PT-OP-T Assessment and Plan Start: 10/24/22 21:26 Freq: Status: Active Protocol: Document 02/01/23 11:13 [facility] (Rec: 02/01/23 11:59 [facility] [id number]) Physical Therapy Assessment Goals Three Impairment Pelvic floor strength Short Term Goal (STG) Jaclyn will contract her pelvic floor for 10 seconds in standing. Good progress as pt has been working on standing contractions STG Duration 5 Data Entry Operator Goal (LTG) Jaclyn will contract her pelvic floor while moving from sit to stand. good progress and Jaclyn is more aware of pelvic floor bracing with transitional positions LTG Duration 10 One Impairment Incontinence Short Term Goal (STG) Jaclyn will be able to cough and sneeze without leaking. Some progress Data Entry Operator Goal (LTG) Jaclyn will return to exercise (weight lifting) without leaking. As of 02/01/23 Esvin is not experiencing additional leakage with weight training but she does need to use the bathroom right before and she has to be very focused on pelvic floor recruitemnt. She notices leakage later in the day with movements such a lifting her daughter into the crib or squatting down Assessment Summary Assessment TIme was spent the lst couple of visits on scar tissue release of the left side of the perienum and Jaclyn is doing better now with the ability to pull from the perineum when doing a pelvic floor contraction. She notes small improvements in symptoms. She still notes leakage expecially towards the later half of her day when she starts to fatigue. With MMT she is still weaker on her left lateral wall of the levator ani as compared to her right side. Jaclyn would benefit from continued PT Physical Therapy Plan Frequency and Duration Frequency of Treatment 1x/Week Duration of treatment (weeks) 12 Plan of Care Start Date 01/17/23 Plan of Care End Date 04/19/23 Therapeutic Interventions Therapeutic Interventions Home Exercise Program,Manual Therapy,Neuromuscular Re- education,Self-Care/Home Management,Therapeutic Activities,Therapeutic Exercises Modalities Biofeedback,Electric Stimulation Next Visit Focus/Plan Next Note Type Treatment Note Next Visit Plan recheck perineum scar tissue and left lateral wall sensation as well as strength
--- NOTE | 2023-02-01 13:53 | PT.OPPOC ---
Physical, Occupational & Speech Therapy At [facility] Current Diagnoses Stress incontinence (female) (male) (02/01/23) Visit Care Team Role Provider Type LEATHA Cobos Family Provider Advanced Fuel Cell Engineer Primary Care Provider Specialty: Medical Address: [address] [place] [address], [id number] Email: [email or web address] Lissette De Los Santos MD Attending Provider Physician Referring Provider Specialty: Gynecology FIBER TECHNICIAN Obstetrics Address: [address] [place] [address], [address] Email: [email or web address] Plan Of Care PT-OP-T Assessment and Plan Start: 10/24/22 21:26 Freq: Status: Active Protocol: Document 02/01/23 11:13 [facility] (Rec: 02/01/23 11:59 [facility] [id number]) Physical Therapy Assessment Goals Three Impairment Pelvic floor strength Short Term Goal (STG) Jaclyn will contract her pelvic floor for 10 seconds in standing. Good progress as pt has been working on standing contractions STG Duration 5 [facility] Goal (LTG) Jaclyn will contract her pelvic floor while moving from sit to stand. good progress and Jaclyn is more aware of pelvic floor bracing with transitional positions LTG Duration 10 One Impairment Incontinence Short Term Goal (STG) Jaclyn will be able to cough and sneeze without leaking. Some progress [facility] Goal (LTG) Jaclyn will return to exercise (weight lifting) without leaking. As of 02/01/23 Jaclyn is not experiencing additional leakage with weight training but she does need to use the bathroom right before and she has to be very focused on pelvic floor recruitment She notices leakage later in the day with movements such a lifting her daughter into the crib or squatting down Assessment Summary Assessment Time was spent the last couple of visits on scar tissue release of the left side of the perineum and Jaclyn is doing better now with the ability to pull from the perineum when doing a pelvic floor contraction. She notes small improvements in symptoms. She still notes leakage especially towards the later half of her day when she starts to fatigue. With MMT she is still weaker on her left lateral wall of the levator ani as compared to her right side. Jaclyn would benefit from continued PT Physical Therapy Plan Frequency and Duration Frequency of Treatment 1x/Week Duration of treatment (weeks) 12 Plan of Care Start Date 01/17/23 Plan of Care End Date 04/19/23 Therapeutic Interventions Therapeutic Interventions Home Exercise Program,Manual Therapy,Neuromuscular Re- education,Self-Care/Home Management,Therapeutic Activities,Therapeutic Exercises Modalities Biofeedback,Electric Stimulation Next Visit Focus/Plan Next Note Type Treatment Note Next Visit Plan recheck perineum scar tissue and left lateral wall sensation as well as strength Plan of Care Dates Plan of Care Start Date 01/17/23 Plan of Care End Date 04/19/23 Electronically Signed by: Karen Jason, PT 02/01/23 7529 If you are in agreement with this Plan of Care, please return a signed and dated copy. I have reviewed this Plan of Care and certify that the skilled therapy services above are required to meet the patient?s needs. Physician Signature Date Printed Name and Credentials Clinical Instructor Signature Printed Name and Credentials
--- NOTE | 2023-02-08 11:01 | PT.OTN ---
Current Diagnoses Stress incontinence (female) (male) (02/08/23) Physical Therapy Treatment Note PT-OP-A Visit Information Start: 10/24/22 21:26 Freq: Status: Active Protocol: Document 02/08/23 08:01 [facility] (Rec: 02/08/23 08:44 [facility] [id number][facility] Out-Patient Physical Therapy Visit Information Visit Information Visit Type Treatment Note Visit Start Time 08:00 Visit Stop Time 08:45 Total Visit Minutes 45 Visit Number 10 PT-OP-B Current Condition Start: 10/24/22 21:26 Freq: Status: Active Protocol: Document 10/25/22 11:57 [facility] (Rec: 10/25/22 12:48 AMB [id number]) Current Condition History of Current Condition Onset Date September 05 Current Complaints DIONNE History of Current Condition Jaclyn returns to physical therapy 7 weeks post . . She was wearing a panty liner at the end of and leaking more now after the bith of her daughter. Pt was induced had a retained placenta and did have to have a DNC. For the first 3 weeks post was leaking all the time even with taking a step. Now getting better but currently changes pads every 2 hours. Leaking is getting a little better, but did have to run after her toddler and leaked a lot with that just recently. Went stand up paddle boarding and did feel that in her abs. Is leaking with sit to stand, cough, sneeze, laugh. 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 She hiked 3 1/2 miles with her 5 month old in the front pack and it was not as bad as she had anticipated it to be, She also hiked the next day and again she didn't leak like she thought she would. Patient Reported Progress Improving PT-OP-I Pelvic Floor Start: 10/24/22 21:26 Freq: Status: Active Protocol: Document 10/25/22 13:00 AMB (Rec: 10/25/22 13:06 AMB [id number]) Pelvic Floor Assessment Urine Leakage Size Small Leakage Cause Cough,Exercise,Lifting,Sneeze, Urge Leaks Per Day constant Voiding Frequency 10/day Nocturia 1 Pads Used In 24 Hours 2 Urine Pad Type Maxi Pad Prolapse Cystocele Grade 2 Urethrocele Grade 1 Rectocele Grade 2 Contraction Ability Manual Muscle Testing Left 3 Manual Muscle Testing Right 3 Manual Muscle Testing Anterior 3 Manual Muscle Testing Posterior 3 Muscle Endurance (Seconds) 10 Number of Quick Contractions In 10 4 Seconds Comments Pelvic Floor Comments labias gape at rest PT-OP-Q Treatments Start: 10/24/22 21:26 Freq: Status: Active Protocol: Document 02/08/23 08:01 [facility] (Rec: 02/08/23 08:44 [facility] [id number]) Therapeutic Exercises Supine Exercises templates for eccentric control and coordination Reps/Minutes on EMG BIOFEEDBACK x 5 min Pelvic floor with ball squeeze Reps/Minutes x 10 reps holding 10 seconds and relaxing 10 seconds Comments used lester template 10 second holds Reps/Minutes 10 reps x 10 sec hold time Comments 18.5 and 29.2 Manual Therapy Treatment Soft Tissue Mobilization left sided perineum scar tissue mobilization Mobilization Type Instrument Assisted Comments scar tissue work today on perineum, left side Transvese perineum and bulbocavernosis Neuro Re-Education Treatment Other Activities NMES Details NMES for the pelvic floor Reps/Duration 10 minutes Comments pt went to 18 initially and then increased to 20 uv she can feel the sensation from 6- 9 on the pelvic clock the most . PT-OP-T Assessment and Plan Start: 10/24/22 21:26 Freq: Status: Active Protocol: Document 02/08/23 08:01 [facility] (Rec: 02/08/23 08:44 [facility] [id number]) Physical Therapy Assessment Goals Three Impairment Pelvic floor strength Short Term Goal (STG) Jaclyn will contract her pelvic floor for 10 seconds in standing. Good progress as pt has been working on standing contractions STG Duration 5 Restaurant Crew Person Goal (LTG) Jaclyn will contract her pelvic floor while moving from sit to stand. good progress and Jaclyn is more aware of pelvic floor bracing with transitional positions LTG Duration 10 One Impairment Incontinence Short Term Goal (STG) Jaclyn will be able to cough and sneeze without leaking. Some progress Restaurant Crew Person Goal (LTG) Jaclyn will return to exercise (weight lifting) without leaking. As of 02/01/23 Esvin is not experiencing additional leakage with weight training but she does need to use the bathroom right before and she has to be very focused on pelvic floor recruitemnt. She notices leakage later in the day with movements such a lifting her daughter into the crib or squatting down Assessment Summary Assessment Jaclyn is noting small amounts of progress with leakage with activity. Scar tissue at the perineum is improving. I talked to her about using a silicone egg for home to improved proprioception with contractions today Physical Therapy Plan Frequency and Duration Frequency of Treatment 1x/Week Duration of treatment (weeks) 12 Plan of Care Start Date 01/17/23 Plan of Care End Date 04/19/23 Therapeutic Interventions Therapeutic Interventions Home Exercise Program,Manual Therapy,Neuromuscular Re- education,Self-Care/Home Management,Therapeutic Activities,Therapeutic Exercises Modalities Biofeedback,Electric Stimulation Next Visit Focus/Plan Next Note Type Treatment Note Next Visit Plan continue progressing pelvic floor strength, trial of EMG biofeedback first prior to NMES and trial of standing next visit
--- NOTE | 2023-02-14 10:32 | PT.OTN ---
Current Diagnoses Stress incontinence (female) (male) (02/14/23) Physical Therapy Treatment Note PT-OP-A Visit Information Start: 10/24/22 21:26 Freq: Status: Active Protocol: Document 02/14/23 07:59 [facility] (Rec: 02/14/23 08:48 [facility] [id number]) Out-Patient Physical Therapy Visit Information Visit Information Visit Type Treatment Note Visit Start Time 08:00 Visit Stop Time 08:45 Total Visit Minutes 45 Visit Number 11 PT-OP-B Current Condition Start: 10/24/22 21:26 Freq: Status: Active Protocol: Document 10/25/22 11:57 AMB (Rec: 10/25/22 12:48 AMB [id number]) Current Condition History of Current Condition Onset Date September 05 Current Complaints DIONNE History of Current Condition Saleem returns to physical therapy 7 weeks post . . She was wearing a panty liner at the end of and leaking more now after the bith of her daughter. Pt was induced had a retained placenta and did have to have a DNC. For the first 3 weeks post was leaking all the time even with taking a step. Now getting better but currently changes pads every 2 hours. Leaking is getting a little better, but did have to run after her toddler and leaked a lot with that just recently. Went stand up paddle boarding and did feel that in her abs. Is leaking with sit to stand, cough, sneeze, laugh. PT-OP-C Subjective Start: 10/24/22 21:26 Freq: Status: Active Protocol: Document 02/14/23 07:59 [facility] (Rec: 02/14/23 08:48 [facility] [id number]) OP-PT Subjective Patient Comments Patient Comments Saleem was able to try the poise impressas and felt like they really help. PT-OP-I Pelvic Floor Start: 10/24/22 21:26 Freq: Status: Active Protocol: Document 10/25/22 13:00 AMB (Rec: 10/25/22 13:06 AMB [id number]) Pelvic Floor Assessment Urine Leakage Size Small Leakage Cause Cough,Exercise,Lifting,Sneeze, Urge Leaks Per Day constant Voiding Frequency 10/day Nocturia 1 Pads Used In 24 Hours 2 Urine Pad Type Maxi Pad Prolapse Cystocele Grade 2 Urethrocele Grade 1 Rectocele Grade 2 Contraction Ability Manual Muscle Testing Left 3 Manual Muscle Testing Right 3 Manual Muscle Testing Anterior 3 Manual Muscle Testing Posterior 3 Muscle Endurance (Seconds) 10 Number of Quick Contractions In 10 4 Seconds Comments Pelvic Floor Comments labias gape at rest PT-OP-Q Treatments Start: 10/24/22 21:26 Freq: Status: Active Protocol: Document 02/14/23 07:59 [facility] (Rec: 02/14/23 08:48 [facility] [id number]) Therapeutic Exercises Supine Exercises 10 second holds Reps/Minutes 10 reps on 10 reps off Comments 19.4 max of 33 uv Sidelying Exercises clam shells Reps/Minutes work to 3 sets of 10 reps Standing Exercises standing pelvic floor with EMG biofeedback Reps/Minutes 5 sec hold with 10 second rest Neuro Re-Education Treatment Other Activities NMES Details NMES for the pelvic floor Reps/Duration 10 Comments Saleem was able to feel the pelvic floor at level 8 and went as high as 10 initially PT-OP-T Assessment and Plan Start: 10/24/22 21:26 Freq: Status: Active Protocol: Document 02/14/23 07:59 [facility] (Rec: 02/14/23 08:48 [facility] [id number]) Physical Therapy Assessment Goals Three Impairment Pelvic floor strength Short Term Goal (STG) Saleem will contract her pelvic floor for 10 seconds in standing. Good progress as pt has been working on standing contractions STG Duration 5 Group Home Goal (LTG) Saleem will contract her pelvic floor while moving from sit to stand. good progress and Saleem is more aware of pelvic floor bracing with transitional positions LTG Duration 10 One Impairment Incontinence Short Term Goal (STG) Saleem will be able to cough and sneeze without leaking. Some progress Cotton Ball Bagger Goal (LTG) Saleem will return to exercise (weight lifting) without leaking. As of 02/01/23 Esvin is not experiencing additional leakage with weight training but she does need to use the bathroom right before and she has to be very focused on pelvic floor recruitemnt. 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 We worked on standing pelvic floor contractions today holding 5 seconds Physical Therapy Plan Frequency and Duration Frequency of Treatment 1x/Week Duration of treatment (weeks) 12 Plan of Care Start Date 01/17/23 Plan of Care End Date 04/19/23 Therapeutic Interventions Therapeutic Interventions Home Exercise Program,Manual Therapy,Neuromuscular Re- education,Self-Care/Home Management,Therapeutic Activities,Therapeutic Exercises Modalities Biofeedback,Electric Stimulation Next Visit Focus/Plan Next Note Type Treatment Note Next Visit Plan continue working on pelvic floor strength in upright positions, check in with how saleem did elevating her pelvis and on clam shells, progress lateral hip stabilizing exercises
--- NOTE | 2023-02-20 11:58 | PT.OTN ---
Current Diagnoses Stress incontinence (female) (male) (02/20/23) Physical Therapy Treatment Note PT-OP-A Visit Information Start: 10/24/22 21:26 Freq: Status: Active Protocol: Document 02/20/23 08:00 [facility] (Rec: 02/20/23 08:46 [facility] [id number]) Out-Patient Physical Therapy Visit Information Visit Information Visit Type Treatment Note Visit Start Time 08:00 Visit Stop Time 08:45 Total Visit Minutes 45 Visit Number 12 PT-OP-B Current Condition Start: 10/24/22 21:26 Freq: Status: Active Protocol: Document 10/25/22 11:57 AMB (Rec: 10/25/22 12:48 AMB [id number]) Current Condition History of Current Condition Onset Date September 05 Current Complaints DIONNE History of Current Condition Saleem returns to physical therapy 7 weeks post . . She was wearing a panty liner at the end of and leaking more now after the bith of her daughter. Pt was induced had a retained placenta and did have to have a DNC. For the first 3 weeks post was leaking all the time even with taking a step. Now getting better but currently changes pads every 2 hours. Leaking is getting a little better, but did have to run after her toddler and leaked a lot with that just recently. Went stand up paddle boarding and did feel that in her abs. Is leaking with sit to stand, cough, sneeze, laugh. PT-OP-C Subjective Start: 10/24/22 21:26 Freq: Status: Active Protocol: Document 02/20/23 08:00 [facility] (Rec: 02/20/23 11:52 [facility] [id number]) OP-PT Subjective Patient Comments Patient Comments Saleem notes she had been seeing improvement of symptoms but then yesterday she had a day where she experienced a great deal of leakage PT-OP-I Pelvic Floor Start: 10/24/22 21:26 Freq: Status: Active Protocol: Document 10/25/22 13:00 AMB (Rec: 10/25/22 13:06 AMB [id number]) Pelvic Floor Assessment Urine Leakage Size Small Leakage Cause Cough,Exercise,Lifting,Sneeze, Urge Leaks Per Day constant Voiding Frequency 10/day Nocturia 1 Pads Used In 24 Hours 2 Urine Pad Type Maxi Pad Prolapse Cystocele Grade 2 Urethrocele Grade 1 Rectocele Grade 2 Contraction Ability Manual Muscle Testing Left 3 Manual Muscle Testing Right 3 Manual Muscle Testing Anterior 3 Manual Muscle Testing Posterior 3 Muscle Endurance (Seconds) 10 Number of Quick Contractions In 10 4 Seconds Comments Pelvic Floor Comments labias gape at rest PT-OP-Q Treatments Start: 10/24/22 21:26 Freq: Status: Active Protocol: Document 02/20/23 08:00 [facility] (Rec: 02/20/23 08:46 [facility] [id number]) Therapeutic Exercises Supine Exercises hip flexor stretch Reps/Minutes worked in sonya test position today Comments pt was given a few different stretches to release the iliopsoas templates for eccentric control and coordination Reps/Minutes on EMG BIOFEEDBACK x 5 min quick contrations Reps/Minutes x 10 reps 10 second holds Reps/Minutes 10 reps on 10 reps off Sidelying Exercises sidelying hip circles Reps/Minutes 10 reps each direction sidelying hip abduction Reps/Minutes 2 x 10 reps clam shells Reps/Minutes work to 3 sets of 10 reps Neuro Re-Education Treatment Other Activities NMES Details NMES for the pelvic floor Reps/Duration 10 min Comments saleem felt sensation around a 10 today and went up to 15 PT-OP-T Assessment and Plan Start: 10/24/22 21:26 Freq: Status: Active Protocol: Document 02/20/23 08:00 [facility] (Rec: 02/20/23 08:46 [facility] [id number]) Physical Therapy Assessment Assessment Summary Assessment I added in iliopsoas stretches as well as sidelying hip series to work on lateral gluteus medius stabilization for Saleem. She tolerated this well and will add these into her HEP Physical Therapy Plan Frequency and Duration Frequency of Treatment 1x/Week Duration of treatment (weeks) 12 Plan of Care Start Date 01/17/23 Plan of Care End Date 04/19/23 Therapeutic Interventions Therapeutic Interventions Home Exercise Program,Manual Therapy,Neuromuscular Re- education,Self-Care/Home Management,Therapeutic Activities,Therapeutic Exercises Modalities Biofeedback,Electric Stimulation Next Visit Focus/Plan Next Note Type Treatment Note Next Visit Plan continue working on increasing strength, recheck the perineum again and progress strengthening exercises
--- NOTE | 2023-02-27 16:24 | PT.OTN ---
Current Diagnoses Stress incontinence (female) (male) (02/27/23) Physical Therapy Treatment Note PT-OP-A Visit Information Start: 10/24/22 21:26 Freq: Status: Active Protocol: Document 02/27/23 08:04 [facility] (Rec: 02/27/23 08:48 [facility] [id number]) Out-Patient Physical Therapy Visit Information Visit Information Visit Type Treatment Note Visit Start Time 08:05 Visit Stop Time 08:45 Total Visit Minutes 40 Visit Number 13 PT-OP-B Current Condition Start: 10/24/22 21:26 Freq: Status: Active Protocol: Document 10/25/22 11:57 AMB (Rec: 10/25/22 12:48 AMB [id number]) Current Condition History of Current Condition Onset Date September 05 Current Complaints DIONNE History of Current Condition Saleem returns to physical therapy 7 weeks post . . She was wearing a panty liner at the end of and leaking more now after the bith of her daughter. Pt was induced had a retained placenta and did have to have a DNC. For the first 3 weeks post was leaking all the time even with taking a step. Now getting better but currently changes pads every 2 hours. Leaking is getting a little better, but did have to run after her toddler and leaked a lot with that just recently. Went stand up paddle boarding and did feel that in her abs. Is leaking with sit to stand, cough, sneeze, laugh. PT-OP-C Subjective Start: 10/24/22 21:26 Freq: Status: Active Protocol: Document 02/27/23 08:04 [facility] (Rec: 02/27/23 08:48 [facility] [id number]) OP-PT Subjective Patient Comments Patient Comments was able to get in some of the hip exercises this past week, no big changes either way this week PT-OP-I Pelvic Floor Start: 10/24/22 21:26 Freq: Status: Active Protocol: Document 10/25/22 13:00 AMB (Rec: 10/25/22 13:06 AMB [id number]) Pelvic Floor Assessment Urine Leakage Size Small Leakage Cause Cough,Exercise,Lifting,Sneeze, Urge Leaks Per Day constant Voiding Frequency 10/day Nocturia 1 Pads Used In 24 Hours 2 Urine Pad Type Maxi Pad Prolapse Cystocele Grade 2 Urethrocele Grade 1 Rectocele Grade 2 Contraction Ability Manual Muscle Testing Left 3 Manual Muscle Testing Right 3 Manual Muscle Testing Anterior 3 Manual Muscle Testing Posterior 3 Muscle Endurance (Seconds) 10 Number of Quick Contractions In 10 4 Seconds Comments Pelvic Floor Comments labias gape at rest PT-OP-Q Treatments Start: 10/24/22 21:26 Freq: Status: Active Protocol: Document 02/27/23 08:04 [facility] (Rec: 02/27/23 08:48 [facility] [id number]) Therapeutic Exercises Supine Exercises templates for eccentric control and coordination Reps/Minutes on EMG BIOFEEDBACK x 5 min 10 second holds Reps/Minutes 10 reps on 10 reps off Comments 18.0 and max of 29.7 Manual Therapy Treatment Soft Tissue Mobilization left sided perineum scar tissue mobilization Mobilization Type Instrument Assisted Comments scar tissue work today on perineum, left side Transvese perineum and bulbocavernosis Neuro Re-Education Treatment Other Activities NMES Details NMES for the pelvic floor Reps/Duration 10 min Comments saleem felt sensation at 11 and went as high as 16 PT-OP-T Assessment and Plan Start: 10/24/22 21:26 Freq: Status: Active Protocol: Document 02/27/23 08:04 [facility] (Rec: 02/27/23 08:48 [facility] [id number]) Physical Therapy Assessment Assessment Summary Assessment Overall scar tissue is decreased and with manual assessment today Saleem is anthony more now from the left side of the levator ani. I talked to her too about elevating her pelvis for decompression to see if this also helps with symptoms Physical Therapy Plan Frequency and Duration Frequency of Treatment 1x/Week Duration of treatment (weeks) 12 Plan of Care Start Date 01/17/23 Plan of Care End Date 04/19/23 Therapeutic Interventions Therapeutic Interventions Home Exercise Program,Manual Therapy,Neuromuscular Re- education,Self-Care/Home Management,Therapeutic Activities,Therapeutic Exercises Modalities Biofeedback,Electric Stimulation Next Visit Focus/Plan Next Note Type Treatment Note Next Visit Plan continue working on increasing strength, how Saleem did with travel to [place] and review all HEP
--- NOTE | 2023-03-06 08:58 | PT.OTN ---
Current Diagnoses Stress incontinence (female) (male) (03/06/23) Physical Therapy Treatment Note PT-OP-A Visit Information Start: 10/24/22 21:26 Freq: Status: Active Protocol: Document 03/06/23 08:04 [facility] (Rec: 03/06/23 08:50 [facility] [id number]) Out-Patient Physical Therapy Visit Information Visit Information Visit Type Treatment Note Visit Start Time 08:04 Visit Stop Time 08:45 Total Visit Minutes 41 Visit Number 14 PT-OP-B Current Condition Start: 10/24/22 21:26 Freq: Status: Active Protocol: Document 10/25/22 11:57 AMB (Rec: 10/25/22 12:48 AMB [id number]) Current Condition History of Current Condition Onset Date September 05 Current Complaints DIONNE History of Current Condition Jaclyn returns to physical therapy 7 weeks post . . She was wearing a panty liner at the end of and leaking more now after the bith of her daughter. Pt was induced had a retained placenta and did have to have a DNC. For the first 3 weeks post was leaking all the time even with taking a step. Now getting better but currently changes pads every 2 hours. Leaking is getting a little better, but did have to run after her toddler and leaked a lot with that just recently. Went stand up paddle boarding and did feel that in her abs. Is leaking with sit to stand, cough, sneeze, laugh. PT-OP-C Subjective Start: 10/24/22 21:26 Freq: Status: Active Protocol: Document 03/06/23 08:04 [facility] (Rec: 03/06/23 08:50 [facility] [id number]) OP-PT Subjective Patient Comments Patient Comments Jaclyn reports [place] and had minimal leaking, she felt like she had a really good week traveling better than she has before Patient Reported Progress Improving PT-OP-I Pelvic Floor Start: 10/24/22 21:26 Freq: Status: Active Protocol: Document 10/25/22 13:00 AMB (Rec: 10/25/22 13:06 AMB [id number]) Pelvic Floor Assessment Urine Leakage Size Small Leakage Cause Cough,Exercise,Lifting,Sneeze, Urge Leaks Per Day constant Voiding Frequency 10/day Nocturia 1 Pads Used In 24 Hours 2 Urine Pad Type Maxi Pad Prolapse Cystocele Grade 2 Urethrocele Grade 1 Rectocele Grade 2 Contraction Ability Manual Muscle Testing Left 3 Manual Muscle Testing Right 3 Manual Muscle Testing Anterior 3 Manual Muscle Testing Posterior 3 Muscle Endurance (Seconds) 10 Number of Quick Contractions In 10 4 Seconds Comments Pelvic Floor Comments labias gape at rest PT-OP-Q Treatments Start: 10/24/22 21:26 Freq: Status: Active Protocol: Document 03/06/23 08:04 [facility] (Rec: 03/06/23 08:50 [facility] [id number]) Therapeutic Exercises Supine Exercises quick contrations Reps/Minutes x 10 reps 10 second holds Reps/Minutes 10 reps on 10 reps off Manual Therapy Treatment Soft Tissue Mobilization left sided perineum scar tissue mobilization Mobilization Type Instrument Assisted Comments scar tissue work today on perineum, left side Transvese perineum and bulbocavernosis Neuro Re-Education Treatment Other Activities NMES Details NMES for the pelvic floor Reps/Duration 10 min Comments went to 20 intensity today Self-Care/Home Management Treatment Activities Self-Care/Home Management Activities discussion of pessary use and options for future for Jaclyn should she wish to try a pessary PT-OP-T Assessment and Plan Start: 10/24/22 21:26 Freq: Status: Active Protocol: Document 03/06/23 08:04 [facility] (Rec: 03/06/23 08:50 [facility] [id number]) Physical Therapy Assessment Assessment Summary Assessment Jaclyn continues to make progress, the poise impressas do help with bladder stabilization, she is still a little tight on the left side medial to the ischium but overall scar tissue is much reduced. She has one visit left in PT scheduled and I will reassess her diastasis and pelvic floor next visit Physical Therapy Plan Frequency and Duration Frequency of Treatment 1x/Week Duration of treatment (weeks) 12 Plan of Care Start Date 01/17/23 Plan of Care End Date 04/19/23 Therapeutic Interventions Therapeutic Interventions Home Exercise Program,Manual Therapy,Neuromuscular Re- education,Self-Care/Home Management,Therapeutic Activities,Therapeutic Exercises Modalities Biofeedback,Electric Stimulation Next Visit Focus/Plan Next Note Type Treatment Note Next Visit Plan next visit will be Esvin zhang appt, she would like a final assessment of her diastasis and pelvic floor
--- NOTE | 2023-03-13 16:55 | PT.OTN ---
Current Diagnoses Stress incontinence (female) (male) (03/13/23) Physical Therapy Treatment Note PT-OP-A Visit Information Start: 10/24/22 21:26 Freq: Status: Active Protocol: Document 03/13/23 08:02 [facility] (Rec: 03/13/23 08:47 [facility] [id number]) Out-Patient Physical Therapy Visit Information Visit Information Visit Type Treatment Note Visit Start Time 08:02 Visit Stop Time 08:45 Total Visit Minutes 43 Visit Number 15 PT-OP-B Current Condition Start: 10/24/22 21:26 Freq: Status: Active Protocol: Document 10/25/22 11:57 AMB (Rec: 10/25/22 12:48 AMB [id number]) Current Condition History of Current Condition Onset Date September 05 Current Complaints DIONNE History of Current Condition Saleem returns to physical therapy 7 weeks post . . She was wearing a panty liner at the end of and leaking more now after the bith of her daughter. Pt was induced had a retained placenta and did have to have a DNC. For the first 3 weeks post was leaking all the time even with taking a step. Now getting better but currently changes pads every 2 hours. Leaking is getting a little better, but did have to run after her toddler and leaked a lot with that just recently. Went stand up paddle boarding and did feel that in her abs. Is leaking with sit to stand, cough, sneeze, laugh. PT-OP-C Subjective Start: 10/24/22 21:26 Freq: Status: Active Protocol: Document 03/13/23 08:02 [facility] (Rec: 03/13/23 08:47 [facility] [id number]) OP-PT Subjective Patient Comments Patient Comments felt pretty similar last week for symptoms, the impressa helps a lot PT-OP-I Pelvic Floor Start: 10/24/22 21:26 Freq: Status: Active Protocol: Document 10/25/22 13:00 AMB (Rec: 10/25/22 13:06 AMB [id number]) Pelvic Floor Assessment Urine Leakage Size Small Leakage Cause Cough,Exercise,Lifting,Sneeze, Urge Leaks Per Day constant Voiding Frequency 10/day Nocturia 1 Pads Used In 24 Hours 2 Urine Pad Type Maxi Pad Prolapse Cystocele Grade 2 Urethrocele Grade 1 Rectocele Grade 2 Contraction Ability Manual Muscle Testing Left 3 Manual Muscle Testing Right 3 Manual Muscle Testing Anterior 3 Manual Muscle Testing Posterior 3 Muscle Endurance (Seconds) 10 Number of Quick Contractions In 10 4 Seconds Comments Pelvic Floor Comments labias gape at rest PT-OP-Q Treatments Start: 10/24/22 21:26 Freq: Status: Active Protocol: Document 03/13/23 08:02 [facility] (Rec: 03/13/23 08:47 [facility] [id number]) Therapeutic Exercises Supine Exercises 10 second holds Reps/Minutes 10 reps on 10 reps off Comments 19.9 and 52.2 max Standing Exercises standing pelvic floor with EMG biofeedback Reps/Minutes worked on 5 second hold time with 10 sec rest Manual Therapy Treatment Soft Tissue Mobilization reassessment of diastasis Comments pt presents with 2 fingerwidth diastasis, this closes with TA and pelvic floor recruitment left sided perineum scar tissue mobilization Mobilization Type Instrument Assisted Comments scar tissue work today on perineum, left side Transvese perineum and bulbocavernosis Neuro Re-Education Treatment Other Activities NMES Details NMES for the pelvic floor Reps/Duration 10 min Comments went to 20 intensity today Self-Care/Home Management Treatment Education Patient Education Home Exercise Program Other Education review of HEP PT-OP-T Assessment and Plan Start: 10/24/22 21:26 Freq: Status: Active Protocol: Document 03/13/23 08:02 [facility] (Rec: 03/13/23 08:47 [facility] [id number]) Physical Therapy Assessment Assessment Summary Assessment saleem has made good overall progress and at this time will be moving to [place]. She will seek out a pelvic floor PT once in [place]. At this point the scar tissue on the perineum on the left side is much reduced. She still has some residual tone and tightness on the left transverse perineum region. She has been shown how to self release with pelvic xs dilator. Saleem is using the poise impressas with activity and leakage is reduced with this. She may benefit from follow up with urogynacology as she still has intermittent leakage despite improvements in strength. At this time she will be discharged from PT Physical Therapy Plan Discharge Physical Therapy Discharge Reasons No Longer Attending PT Discharge Comments Saleem will be moving to [place]
--- NOTE | 2023-03-13 16:55 | PT.OPDS ---
Current Diagnoses Stress incontinence (female) (male) (03/13/23) Visit Care Team Role Provider Type LEATHA Cobos Family Provider [employer] Front Desk Clerk Primary Care Provider Specialty: Medical Address: [address] [place] [address], [facility] Email: [email or web address] Lissette De Los Santos MD Attending Provider Physician Referring Provider Specialty: Gynecology HEDIS NURSE Obstetrics Address: [address] [place] [address], [id number] Email: [email or web address] Visit Number Visit Number 15 Discharge Summary PT-OP-B Current Condition Start: 10/24/22 21:26 Freq: Status: Active Protocol: Document 10/25/22 11:57 AMB (Rec: 10/25/22 12:48 AMB [id number]) Current Condition History of Current Condition Onset Date September 05 Current Complaints DIONNE History of Current Condition Jaclyn returns to physical therapy 7 weeks post . . She was wearing a panty liner at the end of and leaking more now after the bith of her daughter. Pt was induced had a retained placenta and did have to have a DNC. For the first 3 weeks post was leaking all the time even with taking a step. Now getting better but currently changes pads every 2 hours. Leaking is getting a little better, but did have to run after her toddler and leaked a lot with that just recently. Went stand up paddle boarding and did feel that in her abs. Is leaking with sit to stand, cough, sneeze, laugh. PT-OP-C Subjective Start: 10/24/22 21:26 Freq: Status: Active Protocol: Document 03/13/23 08:02 [facility] (Rec: 03/13/23 08:47 [facility] [id number]) OP-PT Subjective Patient Comments Patient Comments felt pretty similar last week for symptoms, the impressa helps a lot PT-OP-I Pelvic Floor Start: 10/24/22 21:26 Freq: Status: Active Protocol: Document 10/25/22 13:00 AMB (Rec: 10/25/22 13:06 AMB [id number]) Pelvic Floor Assessment Urine Leakage Size Small Leakage Cause Cough,Exercise,Lifting,Sneeze, Urge Leaks Per Day constant Voiding Frequency 10/day Nocturia 1 Pads Used In 24 Hours 2 Urine Pad Type Maxi Pad Prolapse Cystocele Grade 2 Urethrocele Grade 1 Rectocele Grade 2 Contraction Ability Manual Muscle Testing Left 3 Manual Muscle Testing Right 3 Manual Muscle Testing Anterior 3 Manual Muscle Testing Posterior 3 Muscle Endurance (Seconds) 10 Number of Quick Contractions In 10 4 Seconds Comments Pelvic Floor Comments labkimi gape at rest PT-OP-T Assessment and Plan Start: 10/24/22 21:26 Freq: Status: Active Protocol: Document 03/13/23 08:02 [facility] (Rec: 03/13/23 08:47 [facility] [id number]) Physical Therapy Assessment Goals Three Impairment Pelvic floor strength Short Term Goal (STG) Jaclyn will contract her pelvic floor for 10 seconds in standing. Good progress as pt has been working on standing contractions STG Duration 5 Switch Repairer Goal (LTG) Jaclyn will contract her pelvic floor while moving from sit to stand. good progress and Jaclyn is more aware of pelvic floor bracing with transitional positions LTG Duration 10 One Impairment Incontinence Short Term Goal (STG) Jaclyn will be able to cough and sneeze without leaking. Some progress Switch Repairer Goal (LTG) Jaclyn will return to exercise (weight lifting) without leaking. As of 02/01/23 Esvin is not experiencing additional leakage with weight training but she does need to use the bathroom right before and she has to be very focused on pelvic floor recruitemnt. She notices leakage later in the day with movements such a lifting her daughter into the crib or squatting down Assessment Summary Assessment jaclyn has made good overall progress and at this time will be moving to [place]. She will seek out a pelvic floor PT once in [place]. At this point the scar tissue on the perineum on the left side is much reduced. She still has some residual tone and tightness on the left transverse perineum region. She has been shown how to self release with pelvic xs dilator. Jaclyn is using the poise impressas with activity and leakage is reduced with this. She may benefit from follow up with urogynacology as she still has intermittent leakage despite improvements in strength. At this time she will be discharged from PT Physical Therapy Plan Discharge Physical Therapy Discharge Reasons No Longer Attending PT Discharge Comments Jaclyn will be moving to [place]
== END 2023-06-01 07:43 | disposition home or self-care (01) ==
LOC: PHYS 08:00
PROVIDERS: Family Provider Registered Nurse Diabetes Educator; PCP Registered Nurse Diabetes Educator; Referring Provider Obstetrics & Gynecology; Visit Provider Obstetrics & Gynecology
DX: N39.3 Stress incontinence (female) (male) (principal)
CPT/HCPCS: 97110; 97112; 97140; 97161; 97535